=== PATIENT | female | born 1950 | race Caucasian/White ===

== ENCOUNTER 2016-11-12 15:02 | Inpatient (IN) ==
--- NOTE | 2016-11-12 16:25 | PROVIDER DOCUMENTATION ---
HPI-General Adult - General Chief Complaint: Extremity Pain Stated Complaint: BLOOD CLOT/LEFT LEG Time Seen by Provider: 11/12/16 16:17 Source: patient Allergies/Adverse Reactions: Patient Allergies Allergy/AdvReac Type Severity Reaction Status Date / Time No Known Allergies Allergy Verified 11/26/15 00:56 Home Medications: Alprazolam [Xanax] 1 mg PO TID 08/02/12 Albuterol Sulfate [Proventil Hfa] 6.7 gm IH Q4H PRN 04/13/15 Aspirin [Ecotrin] 81 mg PO DAILY 04/13/15 Calcium Carb/Vit D3/Minerals [Cvs Calcium 600+D & Minerals] 1 each PO DAILY Carvedilol [Coreg] 6.25 mg PO BID 04/13/15 Ipratropium/Albuterol Sulfate [Iprat-Albut 0.5-3(2.5) mg/3 ml] 3 ml IH Q4-6H PRN PRN 04/13/15 Lisinopril/Hydrochlorothiazide [Lisinopril-Hctz 10-12.5 mg Tab] 1 each PO DAILY 04/13/15 Methocarbamol [Robaxin] 500 mg PO BID 04/13/15 Oxycodone HCl/Acetaminophen [Percocet 7.5-325 mg Tablet] 1 each PO TID 04/13/15 Prasugrel [Effient] 10 mg PO DAILY 04/13/15 Pravastatin Sodium 20 mg PO DAILY 04/13/15 - History of Present Illness -Gen Adult Nature of Presenting Problems: 65 y/o WF hx CAD, HTn, COPD, anxiety, and chronic pain, c/o LLE pain for one month, found today that she had a blood clot in the left leg. Denies chest pain or sob. Denies hx of clots, currently on Plavix 75 mg for stent placement. On Location of Pain/Injury: reports: lower extremity Pain Radiation: reports: no radiation Quality of Pain: reports: aching Onset/Duration: reports: other (1 month) Timing: reports: still present Review of Systems - Adult - REVIEW OF SYSTEMS - ADULT Constitutional: reports: no symptoms reported. denies: chills, fever, fatique Eyes: reports: no symptoms reported. denies: blurred vision, double vision, eye pain Ears, Nose, Mouth & Throat: reports: no symptoms reported. denies: ear pain, nose pain, throat pain Cardiovascular: reports: no symptoms reported. denies: chest pain, palpitations Respiratory: reports: no symptoms reported. denies: cough, shortness of breath , wheezing Gastrointestinal: reports: no symptoms reported. denies: abdominal pain, diarrhea, nausea, vomiting Genitourinary: reports: no symptoms reported. denies: dysuria, discharge, frequency, incontinence Musculoskeletal: reports: see HPI, joint swelling, muscle aches. denies: joint pain Integumentary: reports: no symptoms reported. denies: rash Neurological: reports: no symptoms reported. denies: headache/migraines Psychiatric: reports: no symptoms reported Endocrine: reports: no symptoms reported Hematologic/Lymphatic: reports: no symptoms reported Allergic/Immunologic: reports: no symptoms reported All Other Systems: Reviewed and Negative Past History - Adult - PAST MEDICAL HISTORY-ADULT Review of Records: reports: Old Records Reviewed, Nursing Assessment Review, Medications Reviewed, Social history reviewed & non-contributory. Major Childhood Illnesses: reports: denies history Cardiovascular: reports: cardiac disease, HTN, other (stents put in) Respiratory: reports: asthma, COPD Gastrointestinal: reports: denies history Obstetrical/Gynecological: reports: denies history Genitourinary: reports: denies history Musculoskeletal: reports: chronic pain, intervertebral disc disease Neurological: reports: denies history Psychiatric: reports: depression Endocrine/Immune: reports: denies history Other Conditions: reports: denies history - PRIOR SURGERIES/PROCEDURES Surgical/Procedure History: reports: - IMMUNIZATION STATUS Childhood Immunizations: See Nurse Assessment Flu Vaccine: See Nurse Assessment - FAMILY HISTORY Family History: reviewed, not pertinent - SOCIAL HISTORY Smoking: less than 1 pack/day Provider spent 3-5 mins advising pt. on dangers of tobacco.: Discussed manners to quit use, and f/u contacts for add'l counseling. Substance Use: none/never Alcohol Use Frequency: never Physical Exam-General - PHYSICAL EXAM-ADULT Initial Vital Signs Reviewed: Yes - CONSTITUTIONAL General Appearance: appears well, alert, no apparent distress - EYES Eyes: PERRL/EOMI, pink conjunctivae - HEAD, EARS, NOSE, MOUTH & THROAT HENMT: normocephalic/atraumatic, moist mucous membranes - NECK Neck: non-tender, full range of motion, supple, normal inspection - RESPIRATORY Respiratory: chest non-tender, lungs clear, normal breath sounds, no pleuratic chest pain, no respiratory distress, no accessory muscle use. negative: respiratory distress, decreased breath sounds, accessory muscle use, crackles, rales, rhonchi, wheezing - CARDIOVASCULAR Cardiovascular: normal peripheral pulses, regular rate, rhythm, no edema - LYMPHATIC Lymphatic: no adenopathy - MUSCULOSKELETAL Extremity: normal range of motion, normal gait, pedal edema, tenderness (left calf tenderness and swelling of the lower extremity.) Peripheral Pulses: dorsalis-pedis (R): 2+, dorsalis-pedis (L): 2+ - SKIN Integumentary: normal color, normal turgor, warm/dry - NEUROLOGIC Neurologic: grossly normal, no motor/sensory deficits - PSYCHIATRIC Psych/Mental Status: normal mood/affect, normal thought content, normal thought process, oriented x 3 Progress - PLAN OF CARE/RESULTS Progress/Plan/Lab Results: Vital Signs Temp Pulse Resp BP Pulse Ox 11/12/16 15:30 97.8 F 70 16 124/80 100 No Known Allergies Allergy (Verified 11/26/15 00:56) Alprazolam [Xanax] 1 mg PO TID 08/02/12 Albuterol Sulfate [Proventil Hfa] 6.7 gm IH Q4H PRN 04/13/15 Aspirin [Ecotrin] 81 mg PO DAILY 04/13/15 Calcium Carb/Vit D3/Minerals [Cvs Calcium 600+D & Minerals] 1 each PO DAILY Carvedilol [Coreg] 6.25 mg PO BID 04/13/15 Ipratropium/Albuterol Sulfate [Iprat-Albut 0.5-3(2.5) mg/3 ml] 3 ml IH Q4-6H PRN PRN 04/13/15 Lisinopril/Hydrochlorothiazide [Lisinopril-Hctz 10-12.5 mg Tab] 1 each PO DAILY 04/13/15 Methocarbamol [Robaxin] 500 mg PO BID 04/13/15 Oxycodone HCl/Acetaminophen [Percocet 7.5-325 mg Tablet] 1 each PO TID 04/13/15 Prasugrel [Effient] 10 mg PO DAILY 04/13/15 Pravastatin Sodium 20 mg PO DAILY 04/13/15 Ibuprofen [Motrin] 800 mg PO Q8H PRN PRN #20 tablet 11/26/15 Omeprazole [Prilosec] 20 mg PO DAILY@0700 #20 capsule 11/26/15 Cyclobenzaprine [Flexeril] 10 mg PO TID PRN #30 tablet 03/20/16 Hydrocodone/Acetaminophen [[place] 5-325 Tablet] 1 each PO Q4-6H PRN PRN #12 tablet 03/20/16 Ibuprofen [Motrin] 600 mg PO Q6-8H PRN PRN #30 tablet 03/20/16 Laboratory 11/12/16 11/12/16 11/12/16 16:25 16:25 16:25 WBC 5.71 RBC 4.28 Hgb 13.4 Hct 40.9 MCV 95.6 MCH 31.3 H MCHC 32.8 L RDW Std Deviation 13.8 Plt Count 346 MPV 10.5 H Immature Gran % (Auto) 0.0 Neut % (Auto) 49.5 Lymph % (Auto) 35.9 [place] % (Auto) 10.9 H Eos % (Auto) 3.3 Baso % (Auto) 0.4 Immature Gran # (Auto) 0.00 Neut # 2.83 Lymph # 2.05 [place] # 0.62 H Eos # 0.19 Baso # 0.02 PT 10.6 INR 1.00 PTT (Actin FS) 25.4 Sodium 138 Potassium 4.1 Chloride 101 Carbon Dioxide 24 L Anion Gap 13 BUN 18 Creatinine 1.1 H Estimated GFR/1.73 m2 50 BUN/Creatinine Ratio 16 Glucose 98 Calculated Osmolality 278 Calcium 9.3 Total Bilirubin 0.20 AST 17 ALT 10 Alkaline Phosphatase 57 Total Protein 6.9 Albumin 4.0 Globulin 2.9 Albumin/Globulin Ratio 1.4 Orders Category Date Time Status CBC WITH ELECTRONIC DIFF [HEME] Stat Lab 11/12/16 16:25 Completed COMPREHENSIVE METABOLIC PANEL [CHEM] Stat Lab 11/12/16 16:25 Completed PT [PROTIME WITH INR] [COAG] Stat Lab 11/12/16 16:25 Completed PTT [COAG] Stat Lab 11/12/16 16:25 Completed - ULTRASOUND (By Radiology) 1 US Study: Lower Ext (left) Impression: Abnormal (DVT 5-8 cm from the left dalton to the ankle, with occlusion. Well visulaized DVt from superficial femoral into posterior tibial vein. Likely subacute in nature per Vascular) - CONSULTS/PCP/HOSPITALIST Notification #1 *Consult/PCP/Hospitalist*: Dr. Carter, PCP, motion study technician for Dr. Faustin Time Discussed: 18:09 Reason/Comments: DVT Consult Disposition: Admit Departure - Departure Time of Disposition Order: 16:32 DIAGNOSIS: DVT (deep venous thrombosis) Qualifiers: DVT location: lower extremity Affected thrombotic vein of extremity: unspecified lower extremity proximal vein Laterality: left Chronicity: unspecified Qualified Code(s): I82.4Y2 - Acute embolism and thrombosis of unspecified deep veins of left proximal lower extremity Disposition: ADMITTED INPATIENT 09 Certified Medical Emergency: Emergent Condition: Stable Referrals: Alexis Faustin MD [Primary Care Provider] - Attestation - Physician/ Mid-level Attestation Patient care was provided by Mid-level provider (PRACTICE DIRECTOR/PA):: Yes Mid-level provider:: Geetha Vasquez Mid-level documentation review:: The Mid-level provider documentation, treatment plan and medical decision making was reviewed by the physician who agrees with all treatment and medical decision making by the MLP.
[2016-11-12 16:38] LABS: MANUAL DIFF NEEDED? NO
[2016-11-12 16:45] LABS: BASO% 0.4 % (0.0-0.8); EOS# 0.19 X1000 (0.0-0.7); EOS% 3.3 % (0.0-10.0); HEMATOCRIT 40.9 % (37.0-47.0); HEMOGLOBIN 13.4 g/dL (12.0-16.0); LYMPH# 2.05 X1000 (1.2-3.4); LYMPH% 35.9 % (20.5-51.1); MCH 31.3 PG (27-31); MCHC 32.8 g/dL (33-37); MCV 95.6 FL (81-99); MONO# 0.62 X1000 (0.11-0.59); MONO% 10.9 % (1.7-9.3); MPV 10.5 FL (7.4-10.4); NEUT% 49.5 % (42.2-75.2); PLT 346 X1000 (130-400); RBC 4.28 XMIL (4.2-5.4)
[2016-11-12 16:52] LABS: PROTIME 10.6 Seconds (9.2-11.7); PTT 25.4 Seconds (22.0-36.0)
[2016-11-12 17:09] LABS: CALCIUM 9.3 mg/dL (8.8-10.2); POTASSIUM 4.1 mmol/L (3.5-5.1); TOTAL BILIRUBIN 0.2 mg/dL (0.20-1.00); TOTAL PROTEIN 6.9 g/dL (6.3-8.3)
[2016-11-12] MEDS ORDERED: TYLENOL PO PRN (18:31)
[2016-11-12] MEDS ORDERED: ZOFRAN IV PRN (18:31)
--- NOTE | 2016-11-12 19:19 | HISTORY AND PHYSICAL ---
CHIEF COMPLAINT: Left leg swelling. HISTORY OF PRESENT ILLNESS: The patient is a 65-year-old white female of Dr. Denis who presents to the emergency room with complaints of left leg swelling for about 1 month. She has had some dyspnea on exertion, but she says that has not been particularly different than what she has had over the past 2 years. She has been seeing Dr. 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 The patient states that Dr. Ball had called in a prescription for her to take, but she had not picked it up yet from her pharmacy. That may be Ranexa or Imdur I suppose. The patient denies any recent chest pains that are unusual to her. Dr. Ball had ordered a venous Doppler of her left leg earlier today around 1 p.m. and that did show an extensive DVT of the left lower extremity, and I was called to admit the patient. MEDICATIONS PRIOR TO ADMISSION: Aspirin 81 mg p.o. daily, Coreg 6.25 mg p.o. b.i.d., Klonopin 1 mg p.o. b.i.d., Plavix 75 mg p.o. daily, Zestoretic 10/12.5 mg 1 p.o. daily, Singulair 10 mg p.o. daily, Flonase 2 sprays to each nostril once daily, [place] 10 one p.o. t.i.d., DuoNeb treatments every 4 hours via nebulizer. ALLERGIES: NKDA. PAST MEDICAL HISTORY: 1. Hypertension. 2. Fibromyalgia. 3. Chronic pain syndrome. 4. Coronary artery disease with history of [place] in 2013 with stent placement. 5. Ischemic cardiomyopathy. 6. Persistent tobacco abuse. 7. History of renal failure 2 years ago with improvement markedly since that time. 8. Paroxysmal atrial fibrillation. 9. COPD. PAST SURGICAL HISTORY: section. FAMILY HISTORY: Noncontributory. SOCIAL HISTORY: The patient smokes about 1/2 pack of cigarettes a day and says she has been smoking for 50 years. The patient denies alcohol use. [place] in the local area. REVIEW OF SYSTEMS: Negative except as above. PHYSICAL EXAMINATION: VITAL SIGNS: Temperature 97.8 degrees, pulse 70, respirations 16, blood pressure 124/80, and O2 saturation on room air 100%. Weight 180 pounds and she is 5 feet tall. GENERAL: A moderately obese white female, in no acute distress. SKIN: Warm and dry. No rashes. HEENT: NC/AT. NEELIMA. EOMI. Sclerae fairly clear. Pupils are dilated moderately. OP no redness. Tongue in the midline. NECK: No LA, TMG, JVD, or bruits. CARDIOVASCULAR: RRR without definite murmur. LUNGS: Fairly clear to auscultation. Distant breath sounds. BACK: Nontender. ABDOMEN: Protuberant, soft. No mass or organomegaly. BREASTS: Deferred. PELVIC: Deferred. RECTAL: Deferred. EXTREMITIES: Right lower extremity with some non-ropey varicosities in her legs, but marked discrepancy in the size of her circumference of her legs, left being much larger than the right. Negative Homans testing on the left and right. NEUROLOGIC: Cranial nerves 2 through 12 are intact. Nonfocal. LABORATORY DATA: Shows white count 5.7, hemoglobin 13.4, hematocrit 41, MCV 95.6, platelets 346,000, neutrophils 50, lymphocytes 35.9. PT 10.6, INR 1, PTT 25.4. Sodium 138, potassium 4.1, chloride 101, CO2 of 24, BUN 18, and creatinine 1.1, which is her baseline. Glucose 98, calcium 9.3. Total bilirubin 0.2, AST 17, ALT 10, alkaline phosphatase 57, total protein 6.9, albumin 4. Chest x-ray not yet done. Venous Doppler of left lower extremity reveals extensive left lower extremity DVT. ASSESSMENT: 1. Left lower extremity deep vein thrombosis. 2. Dyspnea. 3. Ischemic cardiomyopathy. 4. Coronary artery disease. 5. History of myocardial infarction in 2013. 6. Paroxysmal atrial fibrillation. 7. Chronic obstructive pulmonary disease. 8. Hypertension. 9. History of hyperlipidemia, off medication presently. 10. Fibromyalgia. 11. Chronic pain syndrome. 12. History of mild chronic renal insufficiency with worsened renal dysfunction back in 2013. 13. Persistent tobacco abuse. PLAN: The plan at this time is to admit the patient to a telemetry bed and place her on strict bed rest. Give her Lovenox 1 mg/kg subcutaneous every 12 hours. Continue aspirin at 81 mg daily, holding her Plavix. Continue her other home medications. We will check chest x-ray. We will ask Dr. Ball to see the patient in the morning for evaluation, as he has been following her recently. We will place her on a healthy heart diet and monitor on the telemetry with oxygen if required.
[2016-11-12] MEDS: DUONEB (A & A) INH SCH ×2 (19:30→22:55)
[2016-11-12] MEDS ORDERED: NORCO-10 PO SCH (21:00)
[2016-11-12] MEDS: COREG PO SCH (22:41)
[2016-11-12] MEDS: LOVENOX SUBQ SCH (22:41)
[2016-11-12] MEDS: KLONOPIN PO SCH (22:41)
--- NOTE | 2016-11-12 22:45 | Diag Imaging Result Document ---
PROCEDURE NAME: CHEST-2 VIEWS - 11/12/2016 FRONTAL AND LATERAL CHEST, TWO VIEWS: COMPARISON: 04/13/2015. FINDINGS: The lungs are well expanded. The heart is borderline mildly prominent although this is an AP exam. The vessels are not distended. No pleural effusions. Increased density in the right base. IMPRESSION: I believe there is a right basilar infiltrate. Follow up films recommended.
[2016-11-13] MEDS: NORCO-10 PO SCH ×4 (03:11→20:54)
[2016-11-13] MEDS: DUONEB (A & A) INH SCH ×6 (03:53→23:34)
--- NOTE | 2016-11-13 08:06 | Diag Imaging Result Document ---
PROCEDURE NAME: LUNG SCAN / VQ - 11/13/2016 NUCLEAR MEDICINE VENTILATION-PERFUSION EXAM: TECHNIQUE: 30.9 mCi of DTPA were administered for the ventilation images. 5.3 mCi of MAA were administered for the perfusion images. COMPARISON: The study is compared to the chest x-ray from 11/12/2016. FINDINGS: There are scattered matching defects in the left lung. No associated abnormality on the plain film. Single matching defect in the right lung. No ventilation-perfusion mismatches. IMPRESSION: Intermediate probability for pulmonary emboli.
[2016-11-13] MEDS: FLONASE NAS SCH (08:40)
[2016-11-13] MEDS: ASPIRIN EC PO SCH (08:41)
[2016-11-13] MEDS: CALTRATE 600 + D PO SCH (08:41)
[2016-11-13] MEDS: PRINZIDE 10/12.5MG PO SCH (08:42)
[2016-11-13] MEDS: SINGULAIR PO SCH (08:42)
[2016-11-13] MEDS: COREG PO SCH ×2 (08:42→20:53)
[2016-11-13] MEDS: KLONOPIN PO SCH ×2 (08:42→20:53)
[2016-11-13] MEDS: LOVENOX SUBQ SCH (10:50)
--- NOTE | 2016-11-13 12:21 | CONSULTATION ---
DATE OF CONSULTATION: 11/13/2016 INDICATION FOR THE CONSULTATION: DVT. HISTORY OF PRESENT ILLNESS: Ms. Olivas is a 65-year-old white female who follows with Dr. Ball. She was referred to outpatient imaging yesterday for leg swelling yesterday by Dr. Ball, and had a DVT diagnosed in the left lower extremity. She was then referred to the ER and admitted. She has noted intermittent swelling in that area for several days. No episodes of shortness of breath nor does she have any episodes of chest pain. She reports some medication adjustments by Dr. Ball in the office, and it sounds like she may have been initiated on nitrate, but she has not started that medication yet. No recent stents. Last cardiac catheterization was in 2013. She continues on aspirin and Plavix with no fall history and no bleeding issues. PAST MEDICAL HISTORY: 1. Hypertension. 2. Fibromyalgia. 3. Coronary artery disease with history of stenting in 2013 to the left anterior descending. 4. History of ischemic cardiomyopathy. 5. Continued tobacco abuse. 6. Paroxysmal atrial fibrillation. 7. COPD. SOCIAL HISTORY: The patient smokes around half pack per day and has been smoking for more than 50 years. No alcohol use. She lives in the [facility]. REVIEW OF SYSTEMS: A 10 system review of systems is negative except for those mentioned in HPI. PHYSICAL EXAMINATION: Vital Signs: She is afebrile. Her heart rates are in the 60s to 70s. Her blood pressure most recently was 131/89. General: She is in no acute distress. HEENT: Oropharynx is moist. Poor dentition. Eye examination is pink conjunctivae, white sclerae. Neck: Examination shows no obvious thyromegaly or thyroid tenderness. Cardiovascular: She sounds to be in a regular rate and rhythm. She has no obvious murmurs. She has no S3. She has minimal left lower extremity edema, none on the right. Warm and well perfused lower extremities. Chest: Exam is clear bilaterally. She has no increased work of breathing. Abdomen: Soft, nontender, nondistended. She has no obvious organomegaly. Skin Exam: Warm and dry throughout. There are not any rashes. Neurological: She is moving all extremities well. Cranial nerves 2-12 intact without sensation deficits. Psychiatric: Alert and oriented, pleasant. She has normal mood and affect. PERTINENT DATA: V/Q scan yesterday showed intermediate probability for pulmonary emboli, showing scattered matched defects in the left lung with single matching defect in the right lung. Stress test performed October 29 shows moderate size mild intensity, reversible defect located in the inferior apical, mid inferior, and basal inferior segments. Reversibility would suggest ischemia. EF was 79% on that study. Wall motion appeared to be intact. White count was 5.7, hematocrit is 40.9, platelet count is 346. INR is 1.0. Sodium is 138, potassium 4.1, BUN is 18, creatinine is 1.1. Her albumin level was 4. TSH on the was 1.3. ASSESSMENT: 1. Paroxysmal atrial fibrillation. 2. Deep vein thrombosis with intermediate probability V/Q for pulmonary embolism. 3. History of coronary disease. PLAN: Patient has already been discontinued off the Plavix which I agree with. I will discontinue the Lovenox and place her on Eliquis 10 mg b.i.d. This dose should be continued for 7 days followed by 5 mg b.i.d. indefinitely considering her history of DVT, as well as atrial fibrillation. The risks, benefits and alternatives to anticoagulation have been explained to the patient, including the risk or bleeding. She agrees to proceed. Her renal function appears relatively normal. I will order a limited echo to evaluate her right heart structures considering her intermediate probability for PE. In addition, I will order an EKG.
--- NOTE | 2016-11-13 15:08 | EKG Report ---
Test Performed on : 11/13/2016 1:42:40 PM Test Reason : DVT possible PE, afib Blood Pressure : / mmHG Vent. Rate : 064 BPM Atrial Rate : 064 BPM P-R Int : 130 ms QRS Dur : 086 ms QT Int : 424 ms P-R-T Axes : 036 051 042 degrees QTc Int : 437 ms Normal sinus rhythm. Normal ECG When compared with ECG of 13-APR-2015 15:02, premature atrial complexes. are no longer present Vent. rate has decreased BY 42 BPM Nonspecific T wave abnormality no longer evident in Inferior leads Nonspecific T wave abnormality no longer evident in Lateral leads Confirmed by Martin Schwarz MD ([id number]) on 11/17/2016 8:34:17 AM
--- NOTE | 2016-11-13 16:39 | ECHO REPORT ---
ORDER DATE: 11/13/2016 2D, M-MODE, COLOR DOPPLER EXAM: This is a technically satisfactory study. INTERPRETATION: 1. The left ventricle is normal in size without hypertrophy and with preserved overall systolic function. Estimated left ventricular ejection fraction is between 65% and 70%. 2. The left and right atria are normal in size. Right ventricular size and function are preserved. 3. There is no pericardial effusion. 4. The aortic valve is trileaflet. There is no evidence for aortic stenosis or aortic insufficiency. 5. The mitral valve is intact. The tricuspid valve is intact. 6. There does not appear to be significant mitral regurgitation. 7. The peak pulmonary artery pressure was not estimated in this study.
[2016-11-13] MEDS: NICODERM PATCH TD SCH (17:55)
[2016-11-13] MEDS: ELIQUIS PO SCH (20:53)
[2016-11-14] MEDS: DUONEB (A & A) INH SCH ×6 (03:52→22:44)
[2016-11-14] MEDS: FLONASE NAS SCH (08:53)
[2016-11-14] MEDS: NORCO-10 PO SCH ×3 (08:53→21:41)
[2016-11-14] MEDS: ELIQUIS PO SCH ×2 (08:54→21:41)
[2016-11-14] MEDS: ASPIRIN EC PO SCH (08:55)
[2016-11-14] MEDS: KLONOPIN PO SCH ×2 (08:56→21:40)
[2016-11-14] MEDS: COREG PO SCH ×2 (08:56→21:40)
[2016-11-14] MEDS: NICODERM PATCH TD SCH (08:56)
[2016-11-14] MEDS: PRINZIDE 10/12.5MG PO SCH (08:56)
[2016-11-14] MEDS: CALTRATE 600 + D PO SCH (08:56)
[2016-11-14] MEDS: SINGULAIR PO SCH (08:56)
--- NOTE | 2016-11-14 08:59 | PROGRESS NOTE ---
DATE: 11/14/2016 SUBJECTIVE: A 65-year-old, white female patient, admitted with DVT involving left lower limb. The patient also had intermediate probability of pulmonary embolism. The patient is doing better. She had chronic leg pain. No unusual shortness of breath. She denied any bleeding. No typical chest pain. Occasional palpitation. No nausea or vomiting. She denied any diarrhea. Admission history and physical and Cardiology consult reviewed. Past medical history is significant for chronic pain, hypertension, fibromyalgia, coronary artery disease, paroxysmal atrial fibrillation, COPD, ischemic cardiomyopathy. OBJECTIVE: Her vital signs noted. Neck supple. No JVD. Lungs: Bibasilar crepitation. Heart: S1 and S2 heard. Abdomen soft, globular. Bowel sounds present. Extremities: No cyanosis, clubbing. Crepitation in both knee joints. PROFESSOR OF LITERATURE: Alert, awake, able to move all 4 limbs. Admission laboratory data noted. CONSIDERATION: Deep venous thrombosis involving the left leg. The patient is on Eliquis for paroxysmal atrial fibrillation, hypertension, osteoarthritis. PLAN: I am going to repeat blood work tomorrow and give her p.r.n. oxygen. Close observation. Fall precaution. Overall plan discussed with the patient. She is in agreement.
--- NOTE | 2016-11-14 14:55 | PROGRESS NOTE ---
DATE: 11/14/2016 SUBJECTIVE: The patient remains stable. She still has some complaint of pain within the lower extremities. OBJECTIVE: Heart rate is 60s, blood pressure is 116-130s/50s-69. Patient is afebrile. On exam, this is a well-developed female who is comfortable. HEENT exam is benign. Neck is supple. Chest is clear. Cardiovascular reveals regular rate and rhythm. Abdomen: Positive bowel sounds. Nontender, nondistended. Extremities: There is no edema. IMPRESSION: 1. Deep venous thrombosis. The patient is currently on appropriate dosage anticoagulant therapy. 2. Paroxysmal atrial fibrillation. This remains stable. 3. History of coronary artery disease with previous stenting to the LAD.
[2016-11-15] MEDS: DUONEB (A & A) INH SCH ×6 (03:28→23:30)
[2016-11-15 04:57] LABS: ALLEN TEST YES; BE 0.4 mmoll (-3.0-3.0); BLOOD TYPE ARTERIAL; DRAW SITE R RADIAL; METHB 0.9 % (0.0-1.5); O2(CT) 15.5 mL/dL (15.0-23.0); PCO2(98.6) 45 mmHg (35-45); PO2(98.6) 59 mmHg (60-100); SAMPLE BLOOD; SAO2 91.7 % (95.0-100.0); THB 12.3 g/dL (11.5-17.4); pH(98.6) 7.37 (7.35-7.45)
[2016-11-15 05:15] LABS: MODALITY ROOM AIR
[2016-11-15 06:23] LABS: MANUAL DIFF NEEDED? NO
[2016-11-15 06:34] LABS: BASO% 0.8 % (0.0-0.8); EOS% 6.7 % (0.0-10.0); HEMATOCRIT 38.2 % (37.0-47.0); HEMOGLOBIN 12.8 g/dL (12.0-16.0); LYMPH# 2.75 X1000 (1.2-3.4); LYMPH% 36.9 % (20.5-51.1); MCH 32.2 PG (27-31); MCHC 33.5 g/dL (33-37); MONO# 1.02 X1000 (0.11-0.59); MONO% 13.7 % (1.7-9.3); MPV 10.8 FL (7.4-10.4); NEUT% 41.9 % (42.2-75.2); PLT 312 X1000 (130-400); RBC 3.98 XMIL (4.2-5.4)
[2016-11-15 07:00] LABS: ALBUMIN 3.6 g/dL (3.5-5.0); CALCIUM 9.3 mg/dL (8.8-10.2); MAGNESIUM 1.8 mg/dL (1.5-2.7); POTASSIUM 4.5 mmol/L (3.5-5.1); TOTAL BILIRUBIN 0.16 mg/dL (0.20-1.00); TOTAL PROTEIN 6.3 g/dL (6.3-8.3)
[2016-11-15 07:33] LABS: HEMOGLOBIN A1C 5.5 % (4.8-6.0)
[2016-11-15] MEDS: FLONASE NAS SCH (08:26)
[2016-11-15] MEDS: PRINZIDE 10/12.5MG PO SCH (08:26)
[2016-11-15] MEDS: NORCO-10 PO SCH ×3 (08:27→21:45)
[2016-11-15] MEDS: SINGULAIR PO SCH (08:27)
[2016-11-15] MEDS: ELIQUIS PO SCH ×2 (08:27→21:45)
[2016-11-15] MEDS: CALTRATE 600 + D PO SCH (08:27)
[2016-11-15] MEDS: NICODERM PATCH TD SCH (08:27)
[2016-11-15] MEDS: ASPIRIN EC PO SCH (08:27)
[2016-11-15] MEDS: KLONOPIN PO SCH ×2 (08:28→21:45)
[2016-11-15] MEDS: COREG PO SCH ×2 (08:28→21:46)
--- NOTE | 2016-11-15 09:04 | PROGRESS NOTE ---
DATE: 11/15/2016 SUBJECTIVE: Ms. Olivas is doing fair. The patient does have cough, chest congestion, mild shortness of breath, some wheezing. No high-grade fever or chills. The patient does have history suggestive of DVT. No nausea or vomiting. No dysuria or hematuria. OBJECTIVE: Vital Signs: Reviewed. Neck: Supple. No JVD. Lungs: Bilateral good air entry present. Bilateral basal crepitation. Bilateral expiratory wheezing. Cardiovascular: S1 and S2 heard. Abdomen: Soft. No distention. Bowel sounds present. Extremities: No cyanosis, clubbing. 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 Lab Data: Done today, hemoglobin 12.8, hematocrit 38.2, platelet count 312,000, WBCs 7.46. Blood gas did reveal PO2 of 59, pH 7.37, PCO2 45. PLAN: I am going to start the patient on oxygen. Add bronchodilator treatment. Chest x-ray. Continue rest of the treatment. Close observation. After reviewing chest x-ray, we will make necessary recommendations. PROBLEM LIST: 1. Deep venous thrombosis. 2. Atrial fibrillation. 3. Hypertension. 4. Coronary artery disease. 5. Bronchospasm.
--- NOTE | 2016-11-15 12:28 | Diag Imaging Result Document ---
PROCEDURE NAME: CHEST-PORTABLE - 11/15/2016 AP PORTABLE CHEST AT 0855 HOURS: FINDINGS: There is an ovoid opacity present in the area of the right middle lobe or minor fissure which may be loculated fluid. This was also evident on 11/12/2016. The lungs are actually slightly better expanded than on the previous study. IMPRESSION: Apparent loculated fluid in the minor fissure. Otherwise, stable chest.
[2016-11-16] MEDS: DUONEB (A & A) INH SCH ×6 (02:52→23:35)
[2016-11-16] MEDS: FLONASE NAS SCH (08:00)
[2016-11-16] MEDS: KLONOPIN PO SCH ×2 (08:05→21:02)
[2016-11-16] MEDS: NICODERM PATCH TD SCH (08:05)
[2016-11-16] MEDS: SINGULAIR PO SCH (08:05)
[2016-11-16] MEDS: NORCO-10 PO SCH ×3 (08:05→21:02)
[2016-11-16] MEDS: PRINZIDE 10/12.5MG PO SCH (08:06)
[2016-11-16] MEDS: COREG PO SCH ×2 (08:06→21:02)
[2016-11-16] MEDS: ASPIRIN EC PO SCH (08:06)
[2016-11-16] MEDS: CALTRATE 600 + D PO SCH (08:06)
[2016-11-16] MEDS: ELIQUIS PO SCH ×2 (08:06→21:02)
[2016-11-17] MEDS: DUONEB (A & A) INH SCH ×6 (03:22→23:43)
--- NOTE | 2016-11-17 07:42 | PROGRESS NOTE ---
DATE: 11/16/2016 SUBJECTIVE: Ms. Olivas has left lower extremity DVT. She is on Eliquis 10 mg twice a day. Her general condition is unchanged. ABGs are normal. Chest x-ray revealed some fluid in the minor fissure. Otherwise it was negative. I will continue the Eliquis at the present time. -5
[2016-11-17] MEDS: NORCO-10 PO SCH (08:17)
[2016-11-17] MEDS: FLONASE NAS SCH (08:18)
[2016-11-17] MEDS: CALTRATE 600 + D PO SCH (08:18)
[2016-11-17] MEDS: COREG PO SCH ×2 (08:18→21:06)
[2016-11-17] MEDS: NICODERM PATCH TD SCH (08:18)
[2016-11-17] MEDS: SINGULAIR PO SCH (08:18)
[2016-11-17] MEDS: PRINZIDE 10/12.5MG PO SCH ×2 (08:18→08:19)
[2016-11-17] MEDS: ASPIRIN EC PO SCH (08:18)
[2016-11-17] MEDS: ELIQUIS PO SCH ×2 (08:18→21:06)
[2016-11-17] MEDS: KLONOPIN PO SCH ×2 (08:28→21:06)
--- NOTE | 2016-11-17 09:04 | PROGRESS NOTE ---
DATE: 11/17/2016 Ms. Olivas had an episode of PAD last night. She complains of pain in both legs. She had some loculated fluid in the minor fissure on the right side. We will increase her pain medication as she is in a lot of pain this morning.
[2016-11-17] MEDS: NORCO-10 PO PRN ×2 (12:35→18:36)
[2016-11-18] MEDS: NORCO-10 PO PRN ×4 (02:17→20:25)
[2016-11-18] MEDS: DUONEB (A & A) INH SCH ×5 (03:52→23:25)
[2016-11-18] MEDS: SINGULAIR PO SCH (08:07)
[2016-11-18] MEDS: ELIQUIS PO SCH ×2 (08:07→20:20)
[2016-11-18] MEDS: ASPIRIN EC PO SCH (08:08)
[2016-11-18] MEDS: CALTRATE 600 + D PO SCH (08:08)
[2016-11-18] MEDS: KLONOPIN PO SCH ×2 (08:16→20:20)
[2016-11-18] MEDS: FLONASE NAS SCH (08:17)
[2016-11-18 08:21] LABS: CALCIUM 9.2 mg/dL (8.8-10.2); POTASSIUM 4.5 mmol/L (3.5-5.1)
[2016-11-18] MEDS: NICODERM PATCH TD SCH (08:27)
--- NOTE | 2016-11-18 09:44 | PROGRESS NOTE ---
DATE: 11/18/2016 Ms. Olivas is doing better. She had a left leg DVT. I am trying to get PTE ruled out with CTA. Her electrolytes are stable. Repeat BUN is 27, creatinine is 1.0. I personally feel like she should be okay to get the test done. -6
[2016-11-18] MEDS: PRINZIDE 10/12.5MG PO SCH (10:47)
[2016-11-18] MEDS: COREG PO SCH ×2 (10:47→20:20)
--- NOTE | 2016-11-18 10:57 | Diag Imaging Result Document ---
PROCEDURE NAME: ANGIOGRAM/PULMONARY ARTERIES - 11/18/2016 CT PULMONARY ANGIOGRAM WITH INTRAVENOUS CONTRAST: COMPARISON: Chest x-ray 11/15/2016. FINDINGS: Axial CT images of the chest were obtained after administering intravenous contrast. Coronal MIP images were generated. There are several relatively small scattered acute pulmonary emboli bilaterally, most notably in the lower lobe pulmonary arteries and some segmental arteries in the lower lobes. There is rather advanced calcified coronary artery disease. Heart size is normal with no pericardial effusion. There is some scattered linear atelectasis in the lung bases. Upper abdominal images are unremarkable. Bony structures are intact. IMPRESSION: 1. Acute bilateral multifocal pulmonary emboli. 2. Scattered linear atelectasis in the lung bases. 3. The critical result was immediately called to the patient's nurse on .
[2016-11-19] MEDS: NORCO-10 PO PRN ×4 (03:42→21:31)
[2016-11-19] MEDS: DUONEB (A & A) INH SCH ×6 (04:04→22:46)
[2016-11-19] MEDS: CALTRATE 600 + D PO SCH (09:11)
[2016-11-19] MEDS: ASPIRIN EC PO SCH (09:11)
[2016-11-19] MEDS: PRINZIDE 10/12.5MG PO SCH (09:11)
[2016-11-19] MEDS: SINGULAIR PO SCH (09:11)
[2016-11-19] MEDS: COREG PO SCH ×2 (09:11→21:31)
[2016-11-19] MEDS: NICODERM PATCH TD SCH (09:16)
[2016-11-19] MEDS: ELIQUIS PO SCH ×2 (09:16→21:30)
[2016-11-19] MEDS: KLONOPIN PO SCH ×2 (09:19→21:30)
--- NOTE | 2016-11-19 09:32 | PROGRESS NOTE ---
DATE: 11/19/2016 Ms. Olivas is in [address] A. She is doing better. She is still short of breath. CT angiogram revealed presence of extensive pulmonary embolism. She understands that she will have to take the Eliquis. She actually wants to get back on Coumadin but she is afraid of it. She says she probably cannot afford Eliquis. However, she will try. -0
[2016-11-19] MEDS: FLONASE NAS SCH ×2 (10:01→18:54)
[2016-11-20] MEDS: NORCO-10 PO PRN (04:24)
[2016-11-20 07:32] VITALS: BP 102/38
[2016-11-20] MEDS: DUONEB (A & A) INH SCH (08:05)
[2016-11-20] MEDS: CALTRATE 600 + D PO SCH (08:18)
[2016-11-20] MEDS: ELIQUIS PO SCH (08:18)
[2016-11-20] MEDS: COREG PO SCH ×2 (08:19→08:26)
[2016-11-20] MEDS: PRINZIDE 10/12.5MG PO SCH ×2 (08:19→08:26)
[2016-11-20] MEDS: ASPIRIN EC PO SCH (08:19)
[2016-11-20] MEDS: SINGULAIR PO SCH (08:19)
[2016-11-20] MEDS: NICODERM PATCH TD SCH (08:20)
[2016-11-20] MEDS: KLONOPIN PO SCH (08:42)
--- NOTE | 2016-11-20 09:43 | PROGRESS NOTE ---
DATE: 11/20/2016 Ms. Olivas is doing better. She has bilateral pulmonary emboli and DVT in the left leg. She has atrial fibrillation. She will be taking Imdur as well as Eliquis 5 mg b.i.d. -1
--- NOTE | 2016-11-20 11:47 | HISTORY AND PHYSICAL ---
HOSPITAL COURSE: Ms. Olivas was admitted with the diagnosis of deep vein thrombosis involving the left leg. She was placed on Eliquis. She had severe dyspnea. We did a V/Q lung scan which revealed some moderate probability of pulmonary emboli. Once her creatinine came down to 1, we did a pulmonary arteriogram which revealed presence of bilateral pulmonary emboli, scattered linear atelectasis. Her CBC was unremarkable. INR was 1.08. ABGs revealed pH 7.37, pCO2 of 45, PO2 of 59. Chemistry: Electrolytes are normal. BUN 27, creatinine 1.0. She was on apixaban or Eliquis 10 mg b.i.d. for a few does and then 5 mg b.i.d., which she will take. She will continue her other medications.
[2016-11-21] MEDS ORDERED: ELIQUIS PO SCH (09:00)
--- NOTE | 2016-11-26 08:58 | DISCHARGE SUMMARY ---
ADMISSION DATE: 11/12/2016 DISCHARGE DATE: 11/20/2016 HISTORY OF PRESENT ILLNESS: Ms. Olivas, who is a 65-year-old white female, was admitted with swelling of the left leg. She had severe pain in the left leg as well as back pain. LABORATORY DATA IN THE HOSPITAL: CBC was unremarkable. INR was 1.08. Arterial blood gases revealed a pH of 7.37, pCO2 was 45, pO2 was 59. HOSPITAL COURSE: She had some chest discomfort. Initially V/Q lung scan was one, and V/Q lung scan showed some moderate probability of pulmonary emboli. Her BUN and creatinine were somewhat elevated. However, when the creatinine came down to 1.0, we decided to do the CT of the chest with angiogram, and angiogram was suggestive of bilateral pulmonary emboli, scattered linear atelectasis. During the course, she was initially treated with Eliquis. She was kept on the floor and monitored. She continued to improve, and we started her on apixaban or Eliquis 10 mg b.i.d. initially, and discharged her with a prescription of Eliquis 5 mg b.i.d. We gave her a 10 mg dose for a few days while she was in the hospital. She is going to continue her other medications. FINAL DIAGNOSES: 1. Deep vein thrombosis in the left leg. Elastic stockings given for that. 2. Bilateral pulmonary emboli. 3. Coronary artery disease. 4. 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 FOLLOWUP: She will be followed by me in the office in about 7 days.
== END 2016-11-20 10:56 | disposition home or self-care (01) | DRG 299 ==
LOC: ED 15:02 → 4N 20:54
PROVIDERS: ADMIT Internal Medicine; ATTEND Internal Medicine
DX: I82.402 Acute embolism and thrombosis of unspecified deep veins of left lower extremity (principal); I26.99 Other pulmonary embolism without acute cor pulmonale; J44.9 Chronic obstructive pulmonary disease, unspecified; I48.0 Paroxysmal atrial fibrillation; I10 Essential (primary) hypertension; I25.10 Atherosclerotic heart disease of native coronary artery without angina pectoris; F41.9 Anxiety disorder, unspecified; J45.909 Unspecified asthma, uncomplicated; F32.9 Major depressive disorder, single episode, unspecified; F17.210 Nicotine dependence, cigarettes, uncomplicated; M79.7 Fibromyalgia; M19.90 Unspecified osteoarthritis, unspecified site; I25.5 Ischemic cardiomyopathy; Z79.899 Other long term (current) drug therapy; Z79.82 Long term (current) use of aspirin; Z79.02 Long term (current) use of antithrombotics/antiplatelets; Z79.891 Long term (current) use of opiate analgesic; Z95.5 Presence of coronary angioplasty implant and graft; Z71.6 Tobacco abuse counseling; I25.2 Old myocardial infarction; M47.816 Spondylosis without myelopathy or radiculopathy, lumbar region
CPT/HCPCS: 36415; 71010; 71020; 71275; 78582; 80048; 80053; 82805; 83036; 83735; 84443; 85025; 85610; 85730; 93005; 93010; 93308; 93971; 94640; 94761; 99285; A9539; A9540; J1650; Q9967

== ENCOUNTER 2017-04-20 09:56 | Inpatient (IN) ==
[2017-04-20] MEDS ORDERED: NS 2,000 ML ONE (10:32)
--- NOTE | 2017-04-20 10:40 | Diag Imaging Result Doc PS360 ---
EXAM: HEAD W/O CONTRAST INDICATION: STROKE LIKE COMPARISON: None. FINDINGS: There is no definite acute infarct given the limited sensitivity of CT versus MRI. There is no discrete intracranial mass, mass effect, or intracranial hemorrhage. The surrounding soft tissues and bony structures are essentially unremarkable. IMPRESSION: No evidence of acute intracranial pathology. Electronically signed by Fadi Abbasi 04/20/2017 10:38 AM
[2017-04-20 10:46] LABS: ALLEN TEST YES; BE -11.8 mmoll (-3.0-3.0); BLOOD TYPE ARTERIAL; DRAW SITE R RADIAL; METHB 0.9 % (0.0-1.5); PCO2(98.6) 30 mmHg (35-45); PO2(98.6) 116 mmHg (60-100); SAMPLE BLOOD; SAO2 97.8 % (95.0-100.0); THB 12.4 g/dL (11.5-17.4); pH(98.6) 7.27 (7.35-7.45)
[2017-04-20 10:47] LABS: MODALITY CANNULA
[2017-04-20] MEDS ORDERED: DUONEB (A & A) INH ONE (10:48)
[2017-04-20 10:54] LABS: MANUAL DIFF NEEDED? NO
--- NOTE | 2017-04-20 10:55 | Diag Imaging Result Doc PS360 ---
EXAM: CHEST-PORTABLE - 04/20/2017 HISTORY: AMS TECHNIQUE: Portable AP supine chest 1050 COMPARISON: 03/24/2017 FINDINGS: Heart size appears the upper range of normal. There is a small calcified granuloma from old granulomatous disease of the medial right apex which is stable. The lungs otherwise appear clear. There is no pleural effusion or pneumothorax seen. IMPRESSION: No evidence of acute disease. Electronically signed by Duglas Mclain 04/20/2017 10:53 AM
[2017-04-20] MEDS ORDERED: NS 1,000 ML IV ONE ×2 (10:57→11:14)
--- NOTE | 2017-04-20 11:08 | ED EKG INTERP ---
This chart was entered by Gena Hernandez Scribe, acting as scribe for Michael Aquino MD. EKG Interpretation - EKG Time of EKG reading by physician:: 10:01 EKG Read and Signed by:: Michael Aquino EKG Interpretation (*Must complete 3 of following elements*): Normal Rate: 69 Rhythm: NSR [place]: normal QRS: normal [place] Interval: normal ST Wave: normal This chart was documented by the indicated scribe, (Gena Hernandez Scribe) and accurately reflects the services I performed and decisions made by me, Michael Aquino MD, as attested by the provider's signature.
[2017-04-20 11:34] LABS: BASO% 0.3 % (0.0-0.8); EOS# 0.15 X1000 (0.0-0.7); EOS% 1.3 % (0.0-10.0); HEMATOCRIT 38.9 % (37.0-47.0); HEMOGLOBIN 12.6 g/dL (12.0-16.0); IMM GRAN# 0.03 X1000 (0.0-0.04); IMM GRAN% 0.3 % (0.0-0.5); LYMPH# 2.95 X1000 (1.2-3.4); LYMPH% 25.1 % (20.5-51.1); MCH 31.1 PG (27-31); MCHC 32.4 g/dL (33-37); MONO# 1.37 X1000 (0.11-0.59); MONO% 11.6 % (1.7-9.3); MPV 10.8 FL (7.4-10.4); NEUT% 61.4 % (42.2-75.2); PLT 337 X1000 (130-400); RBC 4.05 XMIL (4.2-5.4)
[2017-04-20 11:36] LABS: CK INDEX 3.3 (0.0-2.5); CK-MB 61.26 ng/mL (0.0-5.0)
[2017-04-20] MEDS: LEVOPHED 8 MG in D5 1/2 NS 250 ML IV SCH (11:45)
[2017-04-20 11:52] LABS: AGAP 25; ALBUMIN 4.1 g/dL (3.5-5.0); ALKALINE PHOSPHATASE 58 U/L (32-104); BUN 69 mg/dL (8-22); CALCIUM 8.6 mg/dL (8.8-10.2); CHLORIDE 100 mmol/L (98-107); COSMO 303; GOT 39 U/L (10-30); GPT 19 U/L (10-36); POTASSIUM 5.3 mmol/L (3.5-5.1); SODIUM 142 mmol/L (136-145); TCO2 17 mmol/L (25-35); TOTAL BILIRUBIN < 0.10 mg/dL (0.20-1.00); TOTAL PROTEIN 6.4 g/dL (6.3-8.3)
[2017-04-20 11:58] LABS: URINE CULTURE NEEDED? NO; URINE MICRO REVIEW NEEDED? NO; URINE SOURCE CLEAN CATCH
[2017-04-20 12:06] LABS: BILIRUBIN URINE NEGATIVE (NEGATIVE); BLOOD URINE MODERATE (NEGATIVE); COLOR YELLOW; GLUCOSE URINE NEGATIVE (NEGATIVE); LEUKOCYTES URINE NEGATIVE (NEGATIVE); NITRITE URINE NEGATIVE (NEGATIVE); PROTEIN URINE TRACE mg/dL (NEGATIVE); TURBIDITY URINE CLEAR (CLEAR); UR EPITHELIAL CELLS <10 /HPF (<10); URINE BACTERIA NEGATIVE /HPF; URINE RBC <10 /HPF (<10); URINE WBC <10 /HPF (<10); UROBILINOGEN URINE NORMAL (NORMAL)
[2017-04-20 12:34] LABS: UR AMPHETAMINES QUAL PRESUMPTIVE POSITIVE (NONE DETECT); UR BARBITUATES QUAL NONE DETECTED (NONE DETECT); UR BENZODIAZEPIN QUAL NONE DETECTED (NONE DETECT); UR CANNABINOIDS QUAL NONE DETECTED (NONE DETECT); UR COCAINE QUAL NONE DETECTED (NONE DETECT); UR METHADONE QUAL NONE DETECTED (NONE DETECT); UR OPIATES QUAL PRESUMPTIVE POSITIVE (NONE DETECT); UR OXYCODONE QUAL NONE DETECTED (NONE DETECT); UR PCP QUAL NONE DETECTED (NONE DETECT)
--- NOTE | 2017-04-20 12:55 | EKG Report ---
Test Performed on : 04/20/2017 10:01:54 AM Test Reason : AMS Blood Pressure : / mmHG Vent. Rate : 069 BPM Atrial Rate : 069 BPM P-R Int : 128 ms QRS Dur : 080 ms QT Int : 414 ms P-R-T Axes : -26 053 061 degrees QTc Int : 443 ms Normal sinus rhythm. Normal ECG When compared with ECG of 13-NOV-2016 13:42, No significant change was found Unconfirmed Result
[2017-04-20 18:25] LABS: ALLEN TEST NO; BE -12.3 mmoll (-3.0-3.0); BLOOD TYPE ARTERIAL; DRAW SITE R BRACHIAL; METHB 0.7 % (0.0-1.5); MODALITY CANNULA; O2(CT) 15.6 mL/dL (15.0-23.0); PCO2(98.6) 30 mmHg (35-45); PO2(98.6) 79 mmHg (60-100); SAMPLE BLOOD; SAO2 96.3 % (95.0-100.0); THB 11.6 g/dL (11.5-17.4); pH(98.6) 7.26 (7.35-7.45)
--- NOTE | 2017-04-20 18:34 | HISTORY AND PHYSICAL ---
HISTORY OF PRESENT ILLNESS: Ms. Olivas is a 66-year-old white female with a known case of coronary artery disease, severe degenerative disk disease in the lumbar spine and some renal failure as well as hypertension. She came to the emergency room in drowsy state. She was hypotensive, systolic blood pressure was 70, and she was admitted to ICU. Family says she worked more last night and she was very weak and she became lethargic in the morning. According to the family, she did not have any chest pain. She had a stent placed in her heart about 2 years ago and she had acute myocardial infarction and she also had 2 section in the past. She does smoke about a pack of cigarettes per day. She is not allergic to any medications. States she down on some of her pain medications and according to the family she has been taking 6-8 aspirins daily. MEDICATIONS: Klonopin 1 mg twice a day p.r.n. Carvedilol 6.25 mg b.i.d. Calcium carbonate with vitamin D3. Aspirin 81 mg. Eliquis 5 mg b.i.d. Albuterol inhaler. Tylenol. REVIEW OF SYSTEMS: Otherwise, the patient is semicomatose and we cannot really get the review of systems at the present time. PHYSICAL EXAMINATION: GENERAL: Patient is stuporous. VITAL SIGNS: Reveal temperature normal, pulse 74 per minute, respiratory rate 17 per minute, blood pressure 109/71 with 10 mcg of Levophed. She is on 3 L per nasal cannula of oxygen. Her weight is 200 pounds and she is 5 feet tall. She is obese. HEENT: Head normocephalic, pupils PERRLA. Fundus examination could not be done. Neck supple. JVP normal. ENT examination unremarkable. There is no evidence of lymphadenopathy, thyroid enlargement, pedal edema, calf tenderness, anemia, cyanosis or clubbing. Pedal pulses well felt. BREASTS: Exam normal. CHEST: Normal inspection. LUNGS: Clear on auscultation. PMI in the normal position. HEART: Sounds normal. No murmur, gallop or rub noted. ABDOMEN: Obese. Hernial orifices normal. No guarding, rigidity, free fluid, masses, or organomegaly. Bowel sounds normal. She has scars from previous surgery. RECTAL: Deferred. ADMINISTRATIVE SUPPORT CLERK/HIGHER FUNCTIONS: The patient is stuporous. Cranial nerves normal. Motor and sensory system examination unremarkable. Deep tendon reflexes normal. Plantars downgoing. Skull and spine examination normal for age. No cerebellar signs or signs of meningeal irritation. LOCOMOTOR: Unremarkable. SKIN: Unremarkable. LABORATORY DATA: Reveals a normal CBC with mild leukocytosis. Blood gases revealed pH 7.27, pCO2 30, PO2 is 116. It could be salicylate toxicity and she has renal failure with BUN of 69, creatinine of 4.8, urinalysis otherwise is negative. IMPRESSION: Hypotension. Sudden onset of hypotension, history of coronary artery disease, degenerative disk disease in the lumbar spine. PLAN: Plan to hold all her p.o. medications. Continue with Levophed. Watch her in intensive care unit. cc: Alexis Faustin MD
[2017-04-20] MEDS ORDERED: BLISTEX MEDICATED BERRY LIP BALM TOP PRN (21:24)
[2017-04-20] MEDS: NS 1,000 ML IV SCH (23:39)
--- NOTE | 2017-04-20 23:41 | CONSULTATION ---
DATE OF CONSULTATION: 04/20/2017 IMPRESSION: 1. Hypotension, probably related to intravascular volume depletion after 2 days of very little oral intake. 2. Acute renal failure. 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 3. Atherosclerotic coronary disease with history of previous coronary angioplasty/stent approximately 2 years ago. 4. History of previous episode of acute renal failure years ago. Also potentially related to aspirin. 5. COPD. 6. Hypertension. 7. Hypercholesterolemia. 8. Recent DVT approximately 6 months ago. Patient continues on anticoagulation. RECOMMENDATIONS: 1. Continue intravenous fluids, effectively replacing current urine output. 2. Continue intravenous pressors as required. 3. Echocardiography. 4. Adjust anticoagulation dose, given renal dysfunction. HISTORY: This 66-year-old, white female, with past history of hypertension, atherosclerotic coronary disease, previous acute renal failure, possibly related to aspirin use, COPD and hypercholesterolemia, was admitted to emergency room after she was brought there by family with lethargy. She has been taking aspirin on a regular basis for pain, in addition to Lortab. She has chronic lower extremity pain related to chronic back disorder. Her family indicates that she may take up to 8 aspirin a day, as far as they know, but she is aware of their trying to keep her from taking aspirin. In the past week, she had her Lortab dose reduced. She has continued to utilize aspirin for pain relief with her bilateral lower extremity pain. She had started to develop weakness and lethargy. For the past couple days, she has not had any significant oral intake. She was getting progressively weaker, and is brought to the emergency room. She was found to be hypotensive with lab evidence of acute renal failure. She also demonstrated significantly elevated CPK with normal troponin, suggesting some component of rhabdomyolysis. PAST MEDICAL HISTORY: 1. Atherosclerotic coronary disease with history of previous coronary angioplasty/stent approximately 2 years ago. Patient has continued without angina. 2. Recent DVT approximately 6 months ago. Patient continues on anticoagulation. 3. Hypertension. 4. History of previous acute renal failure, possibly related to aspirin use. 5. COPD. 6. Hypercholesterolemia. PAST SURGICAL HISTORY: Includes previous section. Family is not aware of any other surgeries, but they are not certain as to whether they have a complete list. CURRENT MEDICATIONS: As listed. SOCIAL HISTORY: She has history of chronic cigarette use for many years. Currently smokes 1/2 pack of cigarettes per day. She does not use alcohol. FAMILY HISTORY: Negative for premature coronary disease. REVIEW OF SYSTEMS: Not reliably obtainable, given patient's lethargy. PHYSICAL EXAMINATION: General: This is a older white female, in no distress, who is somewhat lethargic. She can be aroused to verbal stimuli and mumbles answers to questions. vital signs: Blood pressure 95/50, heart rate 95 and regular, with ECG monitor showing sinus rhythm. HEENT: Extraocular movements intact. Mucous membranes appear somewhat dry. Neck: Supple without discernible jugular venous distention. Chest: Clear to auscultation. Cardiac: Reveals a regular rate and rhythm without appreciable murmur or gallop. Abdomen: Soft, nontender. Bowel sounds are normal. Extremities: Without edema. Neurologic: Reveals her to be lethargic. She will respond to verbal stimuli and mumbles answers to questions. She moves all 4 extremities equally well. Skin: Warm and dry. PERTINENT DATA: Twelve lead EKG demonstrates sinus rhythm, is within normal limits. LABORATORY DATA: Remarkable for BUN 69, creatinine 4.8. CPK 1,874, CPK MB 61.26, troponin less than 0.01. Chest x-ray reported to demonstrate no acute abnormality. cc: Karl Thompson MD
[2017-04-21] MEDS ORDERED: LASIX IV ONE (03:50)
[2017-04-21] MEDS: LEVOPHED 8 MG in D5 1/2 NS 250 ML IV SCH (04:45)
[2017-04-21 06:10] LABS: MANUAL DIFF NEEDED? NO
[2017-04-21 06:26] LABS: BASO% 0.2 % (0.0-0.8); EOS% 0.8 % (0.0-10.0); HEMATOCRIT 39.6 % (37.0-47.0); HEMOGLOBIN 12.8 g/dL (12.0-16.0); IMM GRAN# 0.02 X1000 (0.0-0.04); IMM GRAN% 0.2 % (0.0-0.5); LYMPH# 2.49 X1000 (1.2-3.4); LYMPH% 19.6 % (20.5-51.1); MCH 31.2 PG (27-31); MCHC 32.3 g/dL (33-37); MCV 96.6 FL (81-99); MONO# 1.29 X1000 (0.11-0.59); MONO% 10.1 % (1.7-9.3); NEUT% 69.1 % (42.2-75.2); PLT 330 X1000 (130-400)
[2017-04-21 06:42] LABS: CALCIUM 8.9 mg/dL (8.8-10.2); POTASSIUM 4.5 mmol/L (3.5-5.1)
--- NOTE | 2017-04-21 07:03 | EKG Report ---
Test Performed on : 04/21/2017 06:13:39 AM Test Reason : CP Blood Pressure : / mmHG Vent. Rate : 101 BPM Atrial Rate : 101 BPM P-R Int : 138 ms QRS Dur : 084 ms QT Int : 342 ms P-R-T Axes : 014 054 106 degrees QTc Int : 443 ms Sinus tachycardia. with premature supraventricular complexes. Nonspecific T wave abnormality Abnormal ECG When compared with ECG of 20-APR-2017 10:01, premature supraventricular complexes. are now present Nonspecific T wave abnormality now evident in Lateral leads Confirmed by Brendon GRANDE, Orestes Lambert ([id number]) on 04/25/2017 12:36:39 PM
--- NOTE | 2017-04-21 07:38 | Diag Imaging Result Doc PS360 ---
CHEST-PORTABLE - 04/21/2017 INDICATION: Altered mental status TECHNIQUE: COMPARISON: 04/20/2017 FINDINGS: The lungs are normally expanded and clear. Heart size and mediastinal contours are normal. No pneumothorax or pleural effusion. IMPRESSION: Negative exam. Electronically signed by Mervin Hernandez 04/21/2017 7:35 AM
--- NOTE | 2017-04-21 09:06 | PROGRESS NOTE ---
DATE: 04/21/2017 SUBJECTIVE: The patient more lucid this morning. She denies any chest discomfort. OBJECTIVE: Vital Signs: Blood pressure 114/79, heart rate 100 and regular with ECG monitor showing sinus rhythm. Oxygen saturation 95% on nasal cannula at 3 L per minute. Neck: There is no significant jugular venous distention. Chest: Auscultation of the chest reveals a few scattered rhonchi. Cardiac Exam: Reveals a regular rate and rhythm without appreciable murmur or gallop. Extremities: There is no evidence of peripheral edema. LABORATORY DATA: Demonstrates BUN 54, creatinine 2.3, both improving. IMPRESSION: 1. Acute renal failure. Suspect combination of aspirin-induced nephropathy and hypovolemia. 2. Atherosclerotic coronary disease with history of previous coronary angioplasty/stent approximately 2 years ago. 3. Chronic obstructive pulmonary disease. 4. Hypertension. 5. Hypercholesterolemia. 6. Recent deep vein thrombosis approximately 6 months ago. Patient has been continued on anticoagulation. RECOMMENDATIONS: 1. Continue intravenous fluids. 2. Echocardiography. 3. Nephrology consult. cc: MD Alexis Cisneros MD
--- NOTE | 2017-04-21 09:48 | PROGRESS NOTE ---
DATE: 04/21/2017 SUBJECTIVE: Ms. Olivas continues to be on Levophed. She is very congested in the chest. We will start her on IV Rocephin as well as DuoNeb treatment. She was given some Lasix last night, and she had good output with that. She is seen by the nephrology nurse practitioner and by Dr. Thompson also. Overall condition is improved. She is more alert. Vital signs are stable. cc: Alexis Faustin MD
[2017-04-21 10:02] LABS: UR CREAT RANDOM 18.8 mg/dL (11-20); UR PROT RANDOM < 4.0 mg/dL
[2017-04-21] MEDS: ROCEPHIN 1 GM/NS 1 GM/50 ML IVPB IV SCH (10:08)
[2017-04-21] MEDS: DUONEB (A & A) INH PRN (12:13)
--- NOTE | 2017-04-21 12:27 | CONSULTATION ---
DATE OF CONSULTATION: 04/21/2017 REASON FOR ADMISSION: Altered mental status with increased lethargy. REASON FOR CONSULTATION: Acute kidney injury. HISTORY OF PRESENT ILLNESS: Ms. Olivas is a 66-year-old white female who has not been seen by our service in the past. She is subsequently in ICU secondary to having a severe hypotensive episode with a drop in her blood pressure and altered mental status. She was seen in the Emergency Department after she had become weak and lethargic. Family stated that she did not have any complaints of chest pain, fever, or chills. She does have a history of a cardiac stent approximately 2 years ago with a myocardial infarction. She is a current 1-1/2- bfdj-dcn-yet smoker for over 45 years. Patient currently denies any chest pain. No increased work of breathing. No nausea or vomiting. No diarrhea. Positive weakness. No fever or chills. PAST MEDICAL HISTORY: Noted with a history of renal insufficiency. Baseline creatinine has seen at 1 on her last labs prior to her hospitalization. She has a history of coronary artery disease with an MT in the last year. She has degenerative disk disease in the lumbar spine. History of hypertension. She is also known to have hypercholesterolemia, history of DVT for which she is still on anticoagulation, atherosclerotic coronary disease with a history of angioplasty and stents, and COPD. She has a history of fibromyalgia and chronic narcotic usage. SURGICAL HISTORY: She has had a section in the past. She has also had coronary artery disease with stent placement 2 years ago, on anticoagulation. SOCIAL HISTORY: She has family who are attentive to her care. She has chronic tobacco use. She reports no alcohol or illicit drug use. FAMILY HISTORY: Noncontributory, though she states there is no renal disease. CURRENT ALLERGIES: Listed as no known drug allergies. HOME MEDICATIONS: Listed as Proventil inhaler, lisinopril hydrochlorothiazide, Coreg, Percocet, Singulair, Klonopin, hydrocodone, APAP, Flonase, aspirin, calcium carbonate, vitamin D3, DuoNeb, Tylenol, Eliquis, and Aeroneb nebulizers. REVIEW OF SYSTEMS: Review of systems x10, with most information obtained from chart and verified by patient, with pertinent positives listed above in the HPI. PHYSICAL EXAMINATION: Vital Signs: Temperature 99.3 degrees, blood pressure 93 /56, heart rate 92, respirations 16. She is on 3L nasal cannula. Last recorded saturation was 95%. She has had 644 in. She has had 2300 out per Oakley catheter. General: This is a 66-year- old white female. She is currently resting in bed. She is in the ICU. She remains on Levophed drip for pressor support. Skin: Warm and dry. HEENT: Normocephalic, atraumatic. Conjunctivae pale. She has NEELIMA. Mucous membranes moist. Neck: Supple. Trachea midline. No JVD. Cardiovascular: Regular rate and rhythm. No murmur or gallop appreciated. Lungs: Clear to auscultation anteriorly. Equal excursion on O2. Abdomen: Round, soft, nontender. Positive bowel sounds. Extremities: No edema. No clubbing or cyanosis. Genitourinary: Not inspected. Oakley catheter remains in place. Integumentary: She has scars to abdominal area, well- healed. No rashes or lesions evident. Neurological: She is lethargic. She is alert and oriented x2. LABORATORIES: Sodium of 144, potassium 4.5, chloride 108, CO2 of 17, BUN 54, creatinine 2.3 glucose 88, anion gap 19, calcium 8.9, and albumin 4.1. She has a plasma lactate of 0.8. White count 12.71, hemoglobin 12.8, hematocrit 39.6, with a platelet count of 330, 000. She has blood cultures that are currently pending. Urine output shows positive for amphetamines and opiates. Her ABGs this a.m. were pH 7.26, CO2 of 30, PO2 of 79, and bicarbonate 15.3 on 3L. ASSESSMENT AND PLAN: 1. Acute kidney injury. Patient's baseline creatinine is noted to be at 1. This appears multifactorial associated with hypotension and SARAH with diurectic affect. It has slowly improved with IV fluid hydration, from 4.8 down to 2.3. We will check urine electrolytes and a renal ultrasound. We agree with holding her nephrotoxic medications of her diuretics and her lisinopril combination with hydrochlorothiazide. We agree with continued accurate intake and output. She continues on Levophed for hypotension for support. No indications for any further intervention at this time. 2. Electrolytes and acid-base balance. Patient is mildly acidotic. Electrolytes remain stable. Acidosis may be related to hypotension and #1. We will continue to monitor. No indications for any intervention at this time. 3. Anemia. This is in target. 4. Shock. The patient does remain on Levophed for blood pressure support. This is followed by primary care team. I would like to thank you for allowing us to follow with this patient. Dictated by GENESIS Dominguez for Ruy Seo MD cc: GENESIS Dominguez MD Amit V. Vora, MD [facility]PITALWendy
--- NOTE | 2017-04-21 15:21 | Diag Imaging Result Doc PS360 ---
EXAM: US RENAL 2 (RETROPER) COMPLETE HISTORY: elevated creatinine TECHNIQUE: Transabdominal COMMENT: the kidneys are slightly atrophic measuring 8.6 x 4.8 x 4.9 cm on the right and 9.2 x 5.0 by 5.1 cm on the left. There is a 7.3 cm cyst in the upper pole of the left kidney and a 2.4 cm cyst also in the left upper pole. There is no evidence of hydronephrosis. The bladder is not distended there being a Oakley catheter present. IMPRESSION: No evidence of obstructive uropathy. Left renal cysts. Electronically signed by Mu Castro 04/21/2017 3:19 PM
--- NOTE | 2017-04-21 16:38 | ECHO REPORT ---
ORDER DATE: 04/20/2017 PROCEDURE: Echocardiogram. DATE OF STUDY: 04/20/2017. ECHOCARDIOGRAPHIC MEASUREMENTS: 1. Interventricular septum 1.4 2. Left ventricular posterior wall 1.4. 3. Diastolic diameter 4.0. 4. Left atrium 4.6. 5. Aorta 3.1. INTERPRETATION: 1. Technically suboptimal study. Poor acoustic window. 2. Aortic valve leaflets are trileaflet. 3. Pulmonic valve not well visualized. 4. Mitral valve was normal. There is mitral annular calcification. 5. Tricuspid valve was normal. Normal left ventricular cavity size. Estimated ejection fraction 65% to 70%. 6. There is hyperdynamic circulation. 7. There is mild mitral regurgitation. 8. Trace to mild tricuspid regurgitation. Peak velocity across the tricuspid valve was 2.8 m/sec. 9. Pulmonary artery systolic pressure of 40 mmHg. 10. Peak velocity across the aortic valve 2 m/sec. By Doppler studies, there is no aortic stenosis or regurgitation. 11. There is no pericardial effusion or obvious intracardiac mass or thrombus seen. cc: MD Karl Sy MD Amit V. Vora, MD
[2017-04-21] MEDS: NS 1,000 ML IV SCH (19:26)
[2017-04-21] MEDS: KLONOPIN PO SCH (21:22)
[2017-04-22 04:23] LABS: ALLEN TEST YES; BE -4.7 mmoll (-3.0-3.0); BLOOD TYPE ARTERIAL; DRAW SITE R RADIAL; METHB 0.9 % (0.0-1.5); PCO2(98.6) 37 mmHg (35-45); PO2(98.6) 70 mmHg (60-100); SAMPLE BLOOD; SAO2 94.4 % (95.0-100.0); THB 9.9 g/dL (11.5-17.4); pH(98.6) 7.35 (7.35-7.45)
[2017-04-22 04:24] LABS: MODALITY CANNULA
[2017-04-22 06:04] LABS: ALBUMIN 3.3 g/dL (3.5-5.0); CALCIUM 8.6 mg/dL (8.8-10.2)
[2017-04-22] MEDS: DUONEB (A & A) INH PRN ×4 (08:21→19:25)
[2017-04-22] MEDS: ROCEPHIN 1 GM/NS 1 GM/50 ML IVPB IV SCH (08:28)
[2017-04-22] MEDS: KLONOPIN PO SCH ×3 (08:28→21:49)
--- NOTE | 2017-04-22 10:52 | PROGRESS NOTE ---
DATE: 04/22/2017 Ms. Olivas is doing better. Her ABGs show significant improvement. The pCO2 is up to 37, pH 7.35. Electrolytes are better. BUN and creatinine are improving. We can move her out today, preferably for CICU. -2 cc: Alexis Faustin MD
[2017-04-22] MEDS ORDERED: VENTOLIN HFA INH PRN (11:25)
[2017-04-22] MEDS ORDERED: [UNRECOGNIZED DRUG - OTHER] MC PRN (11:25)
--- NOTE | 2017-04-22 14:58 | PROGRESS NOTE ---
DATE: 04/22/2017 TIME SEEN: 08. SUBJECTIVE: Ms. Olivas is sitting up in a chair. She is eating her breakfast. She denies chest pain or increased work of breathing. She remains on Levophed drip though they are attempting to wean it off in the next hour. OBJECTIVE: Her most recent vital signs 97.3, blood pressure 113/74, heart rate 99, respirations 18. She is on 3 L nasal cannula. Her last recorded saturation is 95%. She has had 1726 In. She has had 2735 out. She is in a -2.5 L fluid balance. LABORATORY DATA: Sodium 141, potassium 4, chloride 108, CO2 18. BUN 33, creatinine 1.1, glucose 89. Her anion gap is 15. Calcium 8.6, phosphorus 2, albumin 3.3. Her last hemoglobin is 12.8 on 04/21/2017. Her last ABGs: pH 7.35, CO2 of 37, PO2 of 70, bicarb 21.2 on 3 L. PHYSICAL EXAMINATION: General: This is a 66-year-old white female. She is sitting in a chair. She is in no acute distress. Her skin is warm and dry. HEENT: Normocephalic, atraumatic. Conjunctiva is pink. She has NEELIMA. Mucous membranes moist. Neck is supple. Trachea midline. No JVD. Cardiovascular: She has regular rate and rhythm on the monitor. No murmur or gallop appreciated. Lungs are clear to auscultation anteriorly. Equal excursion. She remains on O2. Abdomen is round, soft, nontender. Positive bowel sounds. Extremities: She continues with 2+ lower extremity edema. While legs are dependent, they are a slight red in color. No clubbing or cyanosis. Genitourinary: Patient has Oakley catheter in place with adequate urine out. Integumentary: Again, slightly darkened area to her lower extremities while these are dependent. Neurologic: She is alert and oriented x2. ASSESSMENT AND PLAN: 1. Acute kidney injury. Patient has returned to her baseline creatinine of 1.1 today. She has an estimated GFR of 50%. She is currently being weaned off her Levophed. Her vital signs are stable. Adequate urine out. No indications for any intervention at this time. 2. Electrolytes and acid-base balance. Patient has remained acidotic. Again, this may be related to #1 and possibly the fact that she has been taking nonsteroidal anti-inflammatories for a long time at her home. No indications for intervention. 3. Anemia. This is stable. 4. Shock. Again, this is improving. Blood pressure is stable. Adequate urine out and her Levophed is being weaned off. This is followed by the primary care team. I would like to thank you for allowing us to follow with this patient. Dictated by GENESIS Dominguez for Ruy Seo MD cc: GENESIS Dominguez MD Amit V. Vora, MD
[2017-04-22] MEDS: NS 1,000 ML IV SCH (19:22)
--- NOTE | 2017-04-22 19:59 | PROGRESS NOTE ---
DATE: 04/22/2017 SUBJECTIVE: Patient continues without dyspnea or chest discomfort. OBJECTIVE: Vital Signs: Blood pressure 115/72 with a heart rate of 95. Oxygen saturation 96% on room air. There is no significant jugular venous distention. Chest: Clear to auscultation. Cardiac: Reveals a regular rate and rhythm without appreciable murmur or gallop. Extremities: There is no evidence of peripheral edema. LABORATORY DATA/DIAGNOSTICS: Remarkable for BUN 33, creatinine 1.1. Echocardiography indicates normal left ventricular systolic function without wall motion abnormality. IMPRESSION: 1. Acute renal failure, improved. Suspect combination of aspirin and intravascular volume depletion. 2. Atherosclerotic coronary disease. Stable. 3. Chronic obstructive pulmonary disease. 4. Hypertension. 5. Hypercholesterolemia. 6. Recent deep venous thrombosis approximately 6 months ago. Patient has been on anticoagulation. RECOMMENDATIONS: 1. Continue medical management of patient's coronary disease. 2. No additional Cardiology suggestions. We will see further on an as needed basis. cc: MD Alexis Cisneros MD
[2017-04-22] MEDS: COREG PO SCH (21:49)
[2017-04-22] MEDS: ELIQUIS PO SCH (21:49)
[2017-04-22] MEDS ORDERED: DUONEB (A & A) ONE (23:13)
[2017-04-23] MEDS: DUONEB (A & A) INH PRN ×2 (03:30→16:15)
[2017-04-23 06:04] LABS: AGAP 13; ALBUMIN 3.2 g/dL (3.5-5.0); BUN 17 mg/dL (8-22); CALCIUM 8.8 mg/dL (8.8-10.2); CHLORIDE 107 mmol/L (98-107); COSMO 282; POTASSIUM 3.7 mmol/L (3.5-5.1); SODIUM 141 mmol/L (136-145); TCO2 21 mmol/L (25-35)
[2017-04-23] MEDS: ASPIRIN EC PO SCH (08:46)
[2017-04-23] MEDS: TYLENOL PO PRN ×2 (08:46→20:42)
[2017-04-23] MEDS: KLONOPIN PO SCH ×4 (08:46→20:42)
[2017-04-23] MEDS: ROCEPHIN 1 GM/NS 1 GM/50 ML IVPB IV SCH (08:46)
[2017-04-23] MEDS: CALTRATE 600 + D PO SCH (08:46)
[2017-04-23] MEDS: COREG PO SCH ×2 (08:46→20:42)
[2017-04-23] MEDS: ELIQUIS PO SCH ×2 (08:46→20:42)
--- NOTE | 2017-04-23 10:28 | PROGRESS NOTE ---
DATE: 04/23/2017 SUBJECTIVE: The patient is sitting up in bed. She states that she is not ambulated because of her catheter. Feels adequate otherwise. OBJECTIVE: Vital Signs: Afebrile, pulse 72, respiratory rate 18, blood pressure 146/77. She is off pressor support. Intake 1.8 L; output 1.1 L. General: This is a middle-aged female, sitting up in bed awake and alert, no acute distress. HEENT: Normocephalic, atraumatic. Oral mucosa moist. Neck: Supple. Trachea midline. No JVD. Cardiovascular: Regular rate and rhythm. She has no murmur or gallop appreciated. Pulmonary: She has equal excursion. She is clear bilaterally. She remains on O2 supplementation via nasal cannula. Abdomen: Soft, with positive bowel sounds. : Not inspected. She has a Oakley catheter with a moderate amount of clear yellow urine noted. Extremities: There is 1+ to 2+ pretibial edema. No clubbing, cyanosis. She is moving all extremities. Integumentary: Skin is warm and dry without rash or lesion. She does have vascular changes noted in bilateral lower extremities. LAB DATA: Sodium 141, potassium 3.7, BUN 17, creatinine 0.8, and an EGFR of greater than 60. ASSESSMENT AND PLAN: Acute kidney injury, resolved. Her renal function has returned to normal, and her glomerular filtration rate is greater than 60 now. We will sign off at this time. She can continue to follow with her primary, and we will be glad to see her as an outpatient if her renal function worsens. Thank you for allowing us to participate in the care this patient. Dictated by GENESIS Ocasio for Ruy Seo MD cc: MD Alexis Bose MD
--- NOTE | 2017-04-23 11:10 | PROGRESS NOTE ---
DATE: 04/23/2017 Ms. Olivas is doing better. Her chemistry profile is improving. BUN and creatinine are back to almost close to normal now. We are going to start physical therapy. If she continues to improve we might let her go home by Wednesday. Overall condition is significantly improved. Oral intake is improving. cc: Alexis Faustin MD
[2017-04-23] MEDS: NS 1,000 ML IV SCH (15:49)
[2017-04-23] MEDS ORDERED: DUONEB (A & A) ONE (19:30)
[2017-04-24] MEDS: TYLENOL PO PRN (04:20)
[2017-04-24 06:02] LABS: AGAP 12; ALBUMIN 3.2 g/dL (3.5-5.0); BUN 19 mg/dL (8-22); CALCIUM 8.4 mg/dL (8.8-10.2); CHLORIDE 107 mmol/L (98-107); COSMO 285; POTASSIUM 3.8 mmol/L (3.5-5.1); SODIUM 142 mmol/L (136-145); TCO2 23 mmol/L (25-35)
[2017-04-24] MEDS: ROCEPHIN 1 GM/NS 1 GM/50 ML IVPB IV SCH ×2 (08:01→08:24)
[2017-04-24] MEDS: ASPIRIN EC PO SCH (08:01)
[2017-04-24] MEDS: ELIQUIS PO SCH ×2 (08:01→20:09)
[2017-04-24] MEDS: CALTRATE 600 + D PO SCH (08:01)
[2017-04-24] MEDS: COREG PO SCH ×2 (08:01→20:08)
[2017-04-24] MEDS: KLONOPIN PO SCH ×4 (08:01→20:16)
--- NOTE | 2017-04-24 12:41 | PROGRESS NOTE ---
DATE: 04/24/2017 Ms. Olivas is complaining about severe pain in both hips. She has severe arthritis as well as degenerative disk disease. She has been on chronic pain medication. We will start Orange 7.5 q.6 hours p.r.n. Her electrolyte status and CBC are normal. Physical therapy is working on her. Overall condition is unchanged. -7 cc: Alexis Faustin MD
[2017-04-24] MEDS: NS 1,000 ML IV SCH (13:40)
[2017-04-24] MEDS: NORCO-7.5 PO PRN ×2 (13:43→20:08)
[2017-04-24] MEDS: DUONEB (A & A) INH PRN (20:13)
[2017-04-25] MEDS: NORCO-7.5 PO PRN ×4 (03:32→23:20)
[2017-04-25] MEDS: NS 1,000 ML IV SCH (06:00)
[2017-04-25 06:28] LABS: AGAP 10; ALBUMIN 3.2 g/dL (3.5-5.0); BUN 16 mg/dL (8-22); CHLORIDE 110 mmol/L (98-107); COSMO 287; POTASSIUM 4.3 mmol/L (3.5-5.1); SODIUM 144 mmol/L (136-145); TCO2 24 mmol/L (25-35)
[2017-04-25] MEDS: ROCEPHIN 1 GM/NS 1 GM/50 ML IVPB IV SCH ×2 (08:11→09:49)
[2017-04-25] MEDS: ELIQUIS PO SCH ×2 (08:12→20:58)
[2017-04-25] MEDS: CALTRATE 600 + D PO SCH (08:12)
[2017-04-25] MEDS: COREG PO SCH ×2 (08:12→20:58)
[2017-04-25] MEDS: KLONOPIN PO SCH ×4 (08:12→20:58)
[2017-04-25] MEDS: ASPIRIN EC PO SCH (08:12)
--- NOTE | 2017-04-25 11:31 | PROGRESS NOTE ---
DATE: 04/25/2017 Ms Olivas is doing fairly well. Her lungs are clear. She is in regular sinus rhythm. Vital signs are stable. Electrolytes still were stable. cc: Alexis Faustin MD
[2017-04-25] MEDS: DUONEB (A & A) INH PRN ×2 (15:50→19:51)
[2017-04-26] MEDS: NS 1,000 ML IV SCH ×2 (03:07→11:30)
[2017-04-26 05:56] LABS: AGAP 12; ALBUMIN 3.2 g/dL (3.5-5.0); BUN 15 mg/dL (8-22); CALCIUM 8.3 mg/dL (8.8-10.2); CHLORIDE 109 mmol/L (98-107); COSMO 285; POTASSIUM 4.4 mmol/L (3.5-5.1); SODIUM 143 mmol/L (136-145); TCO2 22 mmol/L (25-35)
[2017-04-26] MEDS: NORCO-7.5 PO PRN ×4 (05:57→23:30)
[2017-04-26] MEDS: KLONOPIN PO SCH ×4 (09:25→22:00)
[2017-04-26] MEDS: CALTRATE 600 + D PO SCH (09:25)
[2017-04-26] MEDS: ELIQUIS PO SCH ×2 (09:25→22:00)
[2017-04-26] MEDS: COREG PO SCH ×2 (09:25→22:00)
[2017-04-26] MEDS: ROCEPHIN 1 GM/NS 1 GM/50 ML IVPB IV SCH (09:26)
[2017-04-26] MEDS: ASPIRIN EC PO SCH (09:26)
--- NOTE | 2017-04-26 09:49 | Diag Imaging Result Doc PS360 ---
EXAM: XRAY HIP UNILATERAL LT HISTORY: Lt Hip Pain TECHNIQUE: Two views COMMENT: There is no evidence of fracture or dislocation. There is a bone island superior to the acetabulum in the iliac bone. Note is made of a calcified fibroid on the right side of the pelvis. IMPRESSION: No acute bony disease. Electronically signed by Mu Castro 04/26/2017 9:47 AM
--- NOTE | 2017-04-26 10:00 | PROGRESS NOTE ---
DATE: 04/26/2017 Ms. Olivas is doing better as far as her lungs are concerned. They sound much clearer. She has severe pain in the left hip. She says she even cannot walk. She is afraid to fall. Hip movements are painful. We will x-ray it and then, if it is negative, we will get orthopedic consult. cc: Alexis Faustin MD
[2017-04-27] MEDS: TYLENOL PO PRN (03:19)
[2017-04-27] MEDS: NORCO-7.5 PO PRN (05:32)
[2017-04-27 07:12] LABS: AGAP 11; ALBUMIN 3.1 g/dL (3.5-5.0); BUN 12 mg/dL (8-22); CALCIUM 8.5 mg/dL (8.8-10.2); CHLORIDE 108 mmol/L (98-107); COSMO 284; POTASSIUM 4.3 mmol/L (3.5-5.1); SODIUM 143 mmol/L (136-145); TCO2 24 mmol/L (25-35)
[2017-04-27] MEDS: DUONEB (A & A) INH PRN (07:37)
[2017-04-27 07:42] VITALS: BP 136/65
[2017-04-27] MEDS: ASPIRIN EC PO SCH (08:11)
[2017-04-27] MEDS: COREG PO SCH (08:11)
[2017-04-27] MEDS: CALTRATE 600 + D PO SCH (08:11)
[2017-04-27] MEDS: ELIQUIS PO SCH (08:11)
[2017-04-27] MEDS: KLONOPIN PO SCH ×2 (08:11)
[2017-04-27] MEDS: ROCEPHIN 1 GM/NS 1 GM/50 ML IVPB IV SCH (08:16)
--- NOTE | 2017-04-27 09:34 | PROGRESS NOTE ---
DATE: 04/27/2017 SUBJECTIVE: Ms. Olivas is doing better. Her lungs are clear. Heart sounds are normal. Left hip is still hurting; however, the x-ray is negative. She has a calcified fibroid in the pelvis, which is over on the other side. So, we do not know the cause of hip pain, probably referred pain from her back, but she has degenerative disk disease. We will discharge her today. We told her not to take too much aspirin. -8 cc: Alexis Faustin MD
--- NOTE | 2017-04-27 13:34 | DISCHARGE SUMMARY ---
ADMISSION DATE: 04/20/2017 DISCHARGE DATE: 04/27/2017 Ms. Olivas who is a 66-year-old white female, known case of coronary artery disease, degenerative disk disease in the lumbar spine was admitted with severe hypotension. She was almost stuporous when she came in. CT scan of the head was unremarkable for any intracranial disorder. The chest x-ray had initially revealed no other evidence of acute disease. Renal ultrasound was negative. The x-ray on the left side was negative. An echocardiogram on exam done with ejection fraction around 65-70%. Pulmonary vascular pressure, arterial systolic pressure was 40. COURSE IN THE HOSPITAL: She was admitted to ICU. Kept in ICU for at least 2 days. Had IV fluid was given to keep the blood pressure. Initially it was maintained with Levophed. She continued to improve. She had a Nephrology consult also as there was some early element of prerenal azotemia and some possible renal failure. She improved significantly on the fluid replacement. She is feeling better. She has severe pain in the left hip which she was getting physical therapy. She had some arthritis and some referred pain from the back to the left hip. X-ray of the left hip was negative. She is feeling better. We are going to discharge her today to be followed in the office in about 2 weeks. cc: Alexis Faustin MD
--- NOTE | 2017-04-29 18:02 | PROVIDER DOCUMENTATION ---
This chart was entered by Gena Hernandez Scribe, acting as scribe for Michael Aquino MD. HPI-General Adult - General Chief Complaint: Stroke-Like Symptoms Stated Complaint: STROKE SYMPTOMS Time Seen by Provider: 04/20/17 10:09 Source: patient, family Allergies/Adverse Reactions: Patient Allergies Allergy/AdvReac Type Severity Reaction Status Date / Time No Known Allergies Allergy Verified 04/20/17 10:59 Home Medications: Home Medication List Medication Instructions Recorded Confirmed Last Taken Type Nebulizer [Aeroneb Go Nebulizer] 1 each MC DAILY PRN PRN #1 each 03/24/17 Unknown Rx Hydrocodone/APAP 10 mg/325 mg 10 mg PO Q4HR PRN 04/24/17 04/24/17 Unknown History [Compton-10] Acetaminophen [Tylenol] 650 mg PO Q6H PRN PRN #0 tablet 04/27/17 Unknown Rx Apixaban [Eliquis] 5 mg PO BID tablet 04/27/17 Unknown Rx Aspirin EC 81 mg PO DAILY tablet 04/27/17 Unknown Rx Calcium Carbonate/Vit D3 [Caltrate 1 each PO DAILY tablet 04/27/17 Unknown Rx 600 + D] Carvedilol [Coreg] 6.25 mg PO BID tablet 04/27/17 Unknown Rx Clonazepam [Klonopin] 1 mg PO BID tablet 04/27/17 Unknown Rx - History of Present Illness -Gen Adult Nature of Presenting Problems: PT IS A 66YOF PRESENTING TO THE ED C/O WEAKNESS. PTS DAUGHTER STATES SHE NOTICED HER MORE LETHARGIC THAN SHE NORMALLY IS. NO SIGNS OF PARALYSIS OR SLURRED SPEECH, NO GREATER WEAKNESS ON ONE SIDE OR THE OTHER. NO OTHER COMPLAINTS AT THIS TIME Location of Pain/Injury: reports: none Pain Radiation: reports: no radiation Quality of Pain: reports: none Severity: reports: mild, moderate Onset/Duration: reports: 24 hours ago Timing: reports: still present Context/Activities at Onset: reports: light activity Modifying Factors: improves with: nothing Associated Symptoms: reports: fatigue, malaise, weakness. denies: arm pain, back/neck pain, chest pain, fever/chills, sinus congestion/drainage, nausea, shortness of breath, vomiting Similar Symptoms Previously?: No Recently seen or treated by another doctor?: No Review of Systems - Adult - REVIEW OF SYSTEMS - ADULT ROS:: ROS per family Constitutional: reports: see HPI, quinton. denies: chills, night sweats Eyes: reports: no symptoms reported Ears, Nose, Mouth & Throat: reports: no symptoms reported Cardiovascular: reports: no symptoms reported Respiratory: reports: no symptoms reported Gastrointestinal: reports: no symptoms reported Genitourinary: reports: no symptoms reported Musculoskeletal: reports: no symptoms reported Integumentary: reports: no symptoms reported Neurological: reports: see HPI. denies: paresthesia, slurred speech, tremors Psychiatric: reports: no symptoms reported Endocrine: reports: no symptoms reported Hematologic/Lymphatic: reports: no symptoms reported Allergic/Immunologic: reports: no symptoms reported All Other Systems: Reviewed and Negative Past History - Adult - PAST MEDICAL HISTORY-ADULT Review of Records: reports: Old Records Reviewed, Nursing Assessment Review, Medications Reviewed, Social history reviewed & non-contributory. Major Childhood Illnesses: reports: denies history Cardiovascular: reports: cardiac disease, blood clots, HTN, other (stents put in ) Respiratory: reports: asthma, COPD Gastrointestinal: reports: denies history Obstetrical/Gynecological: reports: denies history Genitourinary: reports: denies history Musculoskeletal: reports: chronic pain, intervertebral disc disease Neurological: reports: denies history Psychiatric: reports: depression Endocrine/Immune: reports: denies history Other Conditions: reports: denies history - PRIOR SURGERIES/PROCEDURES Surgical/Procedure History: reports: cardiac stent (cardiac stents x2), C- section - IMMUNIZATION STATUS Childhood Immunizations: See Nurse Assessment Flu Vaccine: See Nurse Assessment - FAMILY HISTORY Family History: reviewed, not pertinent - SOCIAL HISTORY Smoking: cigarettes, greater than 1 pack/day Substance Use: none/never, denies Alcohol Use Frequency: never Living Situation: family Physical Exam-General - PHYSICAL EXAM-ADULT Initial Vital Signs Reviewed: Yes - CONSTITUTIONAL General Appearance: appears well, alert, moderate distress, severe distress, lethargic, slow to respond. negative: no apparent distress, mild distress - EYES Eyes: PERRL/EOMI, pink conjunctivae - HEAD, EARS, NOSE, MOUTH & THROAT HENMT: normocephalic/atraumatic, moist mucous membranes, normal ENT inspection, TMs normal, pharynx normal - NECK Neck: non-tender, full range of motion, supple, normal inspection - RESPIRATORY Respiratory: chest non-tender, no pleuratic chest pain, no respiratory distress , no accessory muscle use, respiratory distress, wheezing, dull on percussion. negative: lungs clear, normal breath sounds - CARDIOVASCULAR Cardiovascular: normal peripheral pulses, regular rate, rhythm, no edema, no gallop, no JVD, no murmur - GASTROINTESTINAL (ABDOMEN) Abdominal Exam: normal bowel sounds, non tender, soft, no organomegaly, no pulsatile mass - LYMPHATIC Lymphatic: no adenopathy - MUSCULOSKELETAL Back Exam: normal inspection, no CVA tenderness, no vertebral tenderness Extremity: non-tender, no pedal edema, no calf tenderness, normal capillary refill, pelvis stable. negative: normal range of motion, normal gait, normal inspection - SKIN Integumentary: normal turgor, warm/dry, pallor. negative: normal color - NEUROLOGIC Neurologic: operations planner II-XII nml as tested, grossly normal, no motor/sensory deficits - PSYCHIATRIC Psych/Mental Status: normal thought content, normal thought process, oriented x 3, depressed affect. negative: normal mood/affect Progress - PLAN OF CARE/RESULTS Progress/Plan/Lab Results: Laboratory Tests 04/20/17 10:37 Specimen Type ARTERIAL Sample Site R RADIAL pH 7.27 L pCO2 30 L pO2 116 H HCO3 15.7 L Base Excess -11.8 L Oxyhemoglobin 96.4 ABG O2 Sat (Calculated) 17.0 ABG O2 Saturation 97.8 ABG Carboxyhemoglobin 0.50 ABG Methemoglobin 0.9 Abhinav Test YES A-a O2 Difference 75.0 Total Hemoglobin 12.4 Lactate 0.70 Liter Flow 3.0 Blood Gas Modality CANNULA FiO2 % 32.0 Orders Category Date Time Status Cardiac Monitoring DIRECTED Care 04/20/17 10:27 Active Finger Stick Blood Sugar (ED) DIRECTED Care 04/20/17 10:27 Active Oxygen Therapy- ED Nursing DIRECTED Care 04/20/17 10:27 Active Saline Loc NOW Care 04/20/17 10:27 Active CHEST-PORTABLE [RAD] Stat Exams 04/20/17 10:27 Completed HEAD W/O CONTRAST [CT] Stat Exams 04/20/17 10:15 Completed ABG [RESP] Routine Lab 04/20/17 10:37 Completed ABG [RESP] Routine Lab 04/20/17 10:49 Ordered ALCOHOL BLOOD Stat Lab 04/20/17 10:35 Received BLOOD CULTURE [BLDCUL] Stat Lab 04/20/17 10:35 Ordered CBC WITH ELECTRONIC DIFF [HEME] Stat Lab 04/20/17 10:35 Results CK PROFILE [SP CHEM] Stat Lab 04/20/17 10:35 Received LACTATE, PLASMA [CHEM] Stat Lab 04/20/17 10:35 Received PTT [COAG] Stat Lab 04/20/17 10:35 Received TROPONIN T Stat Lab 04/20/17 10:35 Received URINALYSIS W/POSS RFLX CULT-1 [URINALYSIS] Stat Lab 04/20/17 10:27 Uncollected URINE DRUG SCREEN Stat Lab 04/20/17 10:27 Uncollected 0.9% Sodium Chloride Inj [Ns] 1,000 ml Med 04/20/17 10:32 Discontinued .ROUTE As Directed 0.9% Sodium Chloride Inj [Ns] 1,000 ml Med 04/20/17 10:57 Active IV 999 mls/hr Albuterol 2.5MG/Ipratrop 0.5MG [Duoneb (A & A)] Med 04/20/17 10:48 Discontinued 3 ml INH NOW ONE Aerosol Treatments Routine Oth 04/20/17 10:48 Active Aerosol Treatments Stat Oth 04/20/17 10:48 Active Pulse Oximetry Stat Oth 04/20/17 10:27 Active neb [Aerosol Treatments] Stat Oth 04/20/17 10:36 Active EKG [EKG] Stat Ther 04/20/17 10:27 Ordered Vital Signs - 24 hr 04/20/17 10:42 04/20/17 10:55 Temperature 97.9 F Pulse Rate 98 H 79 Respiratory Rate 20 20 Blood Pressure 77/47 72/50 O2 Sat by Pulse Oximetry 96 98 Result Diagrams: 04/21/17 04:30 04/27/17 06:02 - XRAY 1 XRAY: Bilateral XRAY Study: Chest Impression: Normal (NAD - WEATHERS) - CT/MRI 1 CT Study: Head Impression: Normal (NO EVIDENCE OF ACUTE INTRACRANIAL PATHOLOGY - RODRIGUEZ) Departure - Departure Date of Disposition Decision: 04/20/17 Time of Disposition Decision: 10:30 DIAGNOSIS: Altered mental status Qualifiers: Altered mental status type: transient alteration of awareness Qualified Code(s) : R40.4 - Transient alteration of awareness Disposition: ADMITTED INPATIENT 09 Certified Medical Emergency: Emergent Condition: Stable - Critical Care Note This patient required my direct & personal management of CC.: No This chart was documented by the indicated scribe, (Gena Hernandez Scribe) and accurately reflects the services I performed and decisions made by me, Michael Aquino MD, as attested by the provider's signature.
--- NOTE | 2017-04-30 17:30 | DISCHARGE SUMMARY ---
ADMISSION DATE: 04/20/2017 DISCHARGE DATE: 04/27/2017 DISCHARGE SUMMARY ADDENDUM: Ms. Olivas was admitted with severe hypotension, renal failure. She was in shock. Blood pressure was maintained with Levophed. She had Cardiology and Nephrology consultations. She had hypovolemic shock when she was admitted. cc: Alexis Faustin MD
--- NOTE | 2017-05-11 09:30 | DISCHARGE SUMMARY ---
ADMISSION DATE: 04/20/2017 DISCHARGE DATE: 04/27/2017 DISCHARGE SUMMARY ADDENDUM: Ms. Olivas was initially admitted with acute renal failure with a creatinine of 4.8. She was hypotensive. Her blood pressure was 77/47. She was given IV fluids as well as a IV Levophed. I personally feel like she had hypovolemic shock as well as other ill- defined causes of shock of which we could not prove but she did have hypotension and improved after the volume depletion was replaced and with Levophed. cc: Alexis Faustin MD
== END 2017-04-27 12:18 | disposition home or self-care (01) ==
LOC: ED 09:56 → ICU 14:38 → 3S 04-22 11:15 → 3N 04-26 11:17
PROVIDERS: ADMIT Internal Medicine; ATTEND Internal Medicine

== ENCOUNTER 2018-12-23 11:18 | Inpatient (IN) ==
[2018-12-23] MEDS ORDERED: DUONEB (A & A) INH ONE (11:30)
[2018-12-23] MEDS ORDERED: SOLU-MEDROL IV ONE (11:30)
--- NOTE | 2018-12-23 12:01 | Diag Imaging Result Doc PS360 ---
EXAM: CHEST-2 VIEWS - 12/23/2018 HISTORY: sob wheeze TECHNIQUE: Chest two views COMPARISON: 04/27/2018 and 04/16/2018 FINDINGS: There is mild cardiomegaly. There is consolidation at the right middle lobe. There is ill-defined infiltrate at the right lower lobe. This is compatible with pneumonia. There is stable small granuloma from old granulomatous disease at the right upper lobe. There is a tiny right pleural effusion. There is no pneumothorax identified. IMPRESSION: Mild cardiomegaly. Right middle lobe and right lower lobe pneumonia. Tiny right pleural effusion. Electronically signed by Duglas Mclain 12/23/2018 11:59 AM
[2018-12-23] MEDS ORDERED: ROCEPHIN 1 GM in NS 50 ML IV ONE (12:03)
[2018-12-23] MEDS ORDERED: ZITHROMAX 500 MG/NS 500 MG/250 ML IVPB IV SCH (12:15)
[2018-12-23 12:45] LABS: BASO# 0.02 X1000 (0.0-0.2); BASO% 0.2 % (0.0-0.8); EOS# 0.06 X1000 (0.0-0.7); EOS% 0.5 % (0.0-10.0); HEMATOCRIT 37.1 % (37.0-47.0); HEMOGLOBIN 11.9 g/dL (12.0-16.0); IMM GRAN# 0.02 X1000 (0.0-0.04); IMM GRAN% 0.2 % (0.0-0.5); LYMPH# 1.44 X1000 (1.2-3.4); MCH 31.9 PG (27-31); MCHC 32.1 g/dL (33-37); MCV 99.5 FL (81-99); MONO% 7.5 % (1.7-9.3); MPV 10.5 FL (7.4-10.4); NEUT# 9.59 X1000 (1.4-6.5); NEUT% 79.6 % (42.2-75.2); PLT 332 X1000 (130-400); RBC 3.73 XMIL (4.2-5.4); RDW 14.3 % (11.5-14.5); WBC 12.03 X1000 (4.8-10.8)
--- NOTE | 2018-12-23 12:49 | EKG Report ---
Test Performed on : 12/23/2018 11:36:01 AM Test Reason : sob Blood Pressure : / mmHG Vent. Rate : 063 BPM Atrial Rate : 063 BPM P-R Int : 140 ms QRS Dur : 092 ms QT Int : 426 ms P-R-T Axes : 072 041 037 degrees QTc Int : 435 ms Undetermined rhythm Otherwise normal ECG When compared with ECG of 26-APR-2018 23:48, (Unconfirmed) Current undetermined rhythm precludes rhythm comparison, needs review QT has shortened Unconfirmed Result
[2018-12-23 13:02] LABS: INFLUENZA A NEGATIVE (NEGATIVE); INFLUENZA B NEGATIVE (NEGATIVE)
[2018-12-23 13:04] LABS: AGAP 11; ALBUMIN 3.8 g/dL (3.5-5.0); ALKALINE PHOSPHATASE 64 U/L (32-104); BUN 7 mg/dL (8-22); CALCIUM 9.5 mg/dL (8.8-10.2); CHLORIDE 110 mmol/L (98-107); COSMO 289; CREATININE 0.7 mg/dL (0.5-0.9); ESTIMATED GFR > 60; GLUCOSE 109 mg/dL (70-104); GOT 13 U/L (10-30); GPT 11 U/L (10-36); POTASSIUM 3.8 mmol/L (3.5-5.1); SODIUM 146 mmol/L (136-145); TCO2 26 mmol/L (25-35); TOTAL PROTEIN 6.5 g/dL (6.3-8.3)
--- NOTE | 2018-12-23 13:16 | PROVIDER DOCUMENTATION ---
This chart was entered by Kimberley Gonzalez Scribe, acting as scribe for Car Duran CRNP. HPI-Respiratory General - General Chief Complaint: Cough Stated Complaint: SOB Time Seen by Provider: 12/23/18 11:22 Source: patient Allergies/Adverse Reactions: Patient Allergies Allergy/AdvReac Type Severity Reaction Status Date / Time No Known Allergies Allergy Verified 04/26/18 23:47 Home Medications: Home Medication List Medication Instructions Recorded Confirmed Last Taken Type Nebulizer [Aeroneb Go Nebulizer] 1 each MC DAILY PRN PRN #1 each 03/24/1702/03/18 Rx Apixaban [Eliquis] 5 mg PO BID tablet 04/27/17 04/26/18 04/11/18 10:00 Rx Albuterol Sulfate [Albuterol 8.5 gm IH DIRECTED PRN PRN 02/03/18 04/26/18 History Sulfate Hfa] Albuterol 2.5MG/Ipratrop 0.5MG 3 ml INH RTQ6H neb 02/04/18 04/26/18 Unknown Rx [Duoneb (A & A)] Aspirin EC 81 mg PO DAILY tablet 02/04/18 04/26/18 04/11/18 10:00 Rx Carvedilol [Coreg] 12.5 mg PO BID tablet 02/04/18 04/26/18 04/11/18 10:00 Rx Furosemide [Lasix] 20 mg PO DAILY PRN PRN tablet 02/04/18 04/26/18 04/11/18 10: 00 Rx LISINOpril [Prinivil] 10 mg PO DAILY tablet 02/04/18 04/26/18 04/11/18 10:00 Rx Trazodone [Desyrel] 50 mg PO QHS 04/27/18 04/27/18 Unknown History Clonazepam [Klonopin] 1 mg PO TID PRN #30 tab 04/28/18 Unknown Rx Hydrocodone/APAP 10 mg/325 mg 10 mg PO TID #30 tab 04/28/18 Unknown Rx [[place]-10] - History of Present Illness-Resp Nature of Presenting Problem: 68 yof presents to ED by EMS c/o of SOB, cough for the last week. Pt has access to breathing treatments at home but states being slack on them lately. Pt received breathing treatment in EMS and states it helped. Pt has hx of COPD and is a smoker. Pt states having trouble sleeping due to wheezing and has to sleep on 5 pillows to relieve SOB. Review of Systems - Adult - REVIEW OF SYSTEMS - ADULT Constitutional: denies: chills, fever Eyes: reports: no symptoms reported Ears, Nose, Mouth & Throat: reports: no symptoms reported Cardiovascular: reports: no symptoms reported Respiratory: reports: see HPI, chronic cough, shortness of breath, wheezing Gastrointestinal: reports: no symptoms reported Genitourinary: reports: no symptoms reported Musculoskeletal: reports: no symptoms reported Integumentary: reports: no symptoms reported Neurological: reports: no symptoms reported Psychiatric: reports: no symptoms reported Endocrine: reports: no symptoms reported Hematologic/Lymphatic: reports: no symptoms reported Allergic/Immunologic: reports: no symptoms reported All Other Systems: Reviewed and Negative Past History - Adult - PAST MEDICAL HISTORY-ADULT Review of Records: reports: Nursing Assessment Review, Medications Reviewed Major Childhood Illnesses: reports: denies history Cardiovascular: reports: cardiac disease, blood clots, HTN, other (stents put in ) Respiratory: reports: asthma, COPD Gastrointestinal: reports: denies history Obstetrical/Gynecological: reports: denies history Genitourinary: reports: denies history Musculoskeletal: reports: chronic pain, intervertebral disc disease Neurological: reports: denies history Psychiatric: reports: depression Endocrine/Immune: reports: denies history Other Conditions: reports: denies history - PRIOR SURGERIES/PROCEDURES Surgical/Procedure History: reports: cardiac stent (cardiac stents x2), C- section - IMMUNIZATION STATUS Childhood Immunizations: See Nurse Assessment Flu Vaccine: See Nurse Assessment - FAMILY HISTORY Family History: reviewed, not pertinent - SOCIAL HISTORY Smoking: cigarettes Provider spent 3-5 mins advising pt. on dangers of tobacco.: Discussed manners to quit use, and f/u contacts for add'l counseling. Physical Exam-General - PHYSICAL EXAM-ADULT Initial Vital Signs Reviewed: Yes - CONSTITUTIONAL General Appearance: alert, mild distress - EYES Eyes: PERRL/EOMI, pink conjunctivae - HEAD, EARS, NOSE, MOUTH & THROAT HENMT: normocephalic/atraumatic, moist mucous membranes, normal ENT inspection - RESPIRATORY Respiratory: chest non-tender, no pleuratic chest pain, accessory muscle use, wheezing, increased rate. negative: retractions - CARDIOVASCULAR Cardiovascular: normal peripheral pulses, regular rate, rhythm - GASTROINTESTINAL (ABDOMEN) Abdominal Exam: normal bowel sounds, non tender, soft - LYMPHATIC Lymphatic: no adenopathy - MUSCULOSKELETAL Extremity: normal range of motion, no pedal edema, no calf tenderness - SKIN Integumentary: normal color, normal turgor, warm/dry - NEUROLOGIC Neurologic: grossly normal - PSYCHIATRIC Psych/Mental Status: normal mood/affect, normal thought content, normal thought process, oriented x 3 Progress - PLAN OF CARE/RESULTS Progress/Plan/Lab Results: Vital Signs - 8 hr 12/23/18 11:18 12/23/18 12:43 Temperature 98.2 F Pulse Rate 66 61 Respiratory Rate 18 20 Blood Pressure 211/98 O2 Sat by Pulse Oximetry 96 93 L Laboratory Results - last 24 hr 12/23/18 12/23/18 12/23/18 12:16 12:28 12:28 WBC 12.03 H RBC 3.73 L Hgb 11.9 L Hct 37.1 MCV 99.5 H MCH 31.9 H MCHC 32.1 L RDW Std Deviation 14.3 Plt Count 332 MPV 10.5 H Immature Gran % (Auto) 0.2 Neut % (Auto) 79.6 H Lymph % (Auto) 12.0 L Benzie % (Auto) 7.5 Eos % (Auto) 0.5 Baso % (Auto) 0.2 Immature Gran # (Auto) 0.02 Neut # (Auto) 9.59 H Lymph # (Auto) 1.44 Benzie # (Auto) 0.90 H Eos # (Auto) 0.06 Baso # (Auto) 0.02 Sodium 146 H Potassium 3.8 Chloride 110 H Carbon Dioxide 26 Anion Gap 11 BUN 7 L Creatinine 0.7 Estimated GFR/1.73 m2 > 60 BUN/Creatinine Ratio 10 Glucose 109 H Calculated Osmolality 289 Calcium 9.5 Total Bilirubin 0.20 AST 13 ALT 11 Alkaline Phosphatase 64 Troponin T Total Protein 6.5 Albumin 3.8 Globulin 3.0 Albumin/Globulin Ratio 1.0 Plasma Lactate Influenza A (Rapid) NEGATIVE Influenza B (Rapid) NEGATIVE 12/23/18 12/23/18 12:28 12:28 WBC RBC Hgb Hct MCV MCH MCHC RDW Std Deviation Plt Count MPV Immature Gran % (Auto) Neut % (Auto) Lymph % (Auto) Benzie % (Auto) Eos % (Auto) Baso % (Auto) Immature Gran # (Auto) Neut # (Auto) Lymph # (Auto) Benzie # (Auto) Eos # (Auto) Baso # (Auto) Sodium Potassium Chloride Carbon Dioxide Anion Gap BUN Creatinine Estimated GFR/1.73 m2 BUN/Creatinine Ratio Glucose Calculated Osmolality Calcium Total Bilirubin AST ALT Alkaline Phosphatase Troponin T < 0.010 Total Protein Albumin Globulin Albumin/Globulin Ratio Plasma Lactate 1.1 Influenza A (Rapid) Influenza B (Rapid) Orders Category Date Time Status CHEST-2 VIEWS [RAD] Stat Exams 12/23/18 11:30 Completed BLOOD CULTURE [BLDCUL] Stat Lab 12/23/18 12:13 Ordered CBC WITH DIFF [HEME] Stat Lab 12/23/18 12:28 Completed COMPREHENSIVE METABOLIC PANEL [CHEM] Stat Lab 12/23/18 12:[address] Stat Lab 12/23/18 12:16 Completed LACTATE, PLASMA [CHEM] Stat Lab 12/23/18 12:28 Completed PRO B-NATRIURETIC PEPTIDE Stat Lab 12/23/18 12:28 Received TROPONIN T Stat Lab 12/23/18 12:28 Completed Albuterol 2.5MG/Ipratrop 0.5MG [Duoneb (A & A)] Med 12/23/18 11:30 Discontinued 9 ml INH NOW ONE Azithromycin 500 mg/Ns [Zithromax 500 mg/Ns] Med 12/23/18 12:15 Active 500 mg in 250 ml IV Q24H CefTRIAXONE [Rocephin] 1 gm Med 12/23/18 12:03 Discontinued 0.9% Sodium Chloride Inj [Ns] 50 ml IV NOW Methylprednisolone Sod Succ [Solu-Medrol] Med 12/23/18 11:30 Discontinued 125 mg IV NOW ONE Aerosol Treatments Routine Oth 12/23/18 11:31 Completed Aerosol Treatments Stat Oth 12/23/18 11:31 Completed EKG [EKG] Stat Ther 12/23/18 11:31 Draft Result Diagrams: 12/23/18 12:28 12/23/18 12:28 - REASSESSMENT Reassessment #1 Time Reassessed: 12:11 (pt resting. Breathing tx in progress. Updated on CXR and possible admission.) Reassessment #2 Time Reassessed: 13:13 (Wheeze still auscultated bilaterally but much improved from previous exam. Pt and family made aware of results and admission status) Status: improving - EKG 1 Time of EKG reading by physician:: 11:36 EKG Read and Signed by:: Griffin Chris EKG Interpretation (*Must complete 3 of following elements*): Normal Rate: 63 Rhythm: undetermined QRS: normal ST Wave: normal - XRAY 1 XRAY: Bilateral XRAY Study: Chest Impression: Abnormal (There is mild cardiomegaly. There is consolidation at the right middle lobe. There is ill-defined infiltrate at the right lower lobe. This is compatible with pneumonia. There is stable small granuloma from old granulomatous disease at the right upper lobe. There is a tiny right pleural effusion. There is no pneumothorax identified. IMPRESSION: Mild cardiomegaly. Right middle lobe and right lower lobe pneumonia. Tiny right pleural effusion. Electronically signed by Duglas Mclain 12/23/2018 11:59 AM) - CONSULTS/PCP/HOSPITALIST Notification #1 *Consult/PCP/Hospitalist*: Dr. Goldberg Time Discussed: 01:10 (possible admission for PNA) Consult Disposition: Admit Departure - Departure Date of Disposition Decision: 12/23/18 Time of Disposition Decision: 13:14 DIAGNOSIS: Tobacco abuse Pneumonia Qualifiers: Pneumonia type: due to unspecified organism Laterality: right Lung location: unspecified part of lung Qualified Code(s): J18.9 - Pneumonia, unspecified organism Disposition: ADMITTED INPATIENT 09 Certified Medical Emergency: Emergent Condition: Fair Additional Freetext Instructions: ED Follow Up Instructions: You have been treated by a care provider in the Emergency Department. These instructions are being provided to you so you can have an understanding of how to care for yourself upon discharge. Upon discharge from the Emergency Department, you are responsible for making arrangements for follow-up care by a physician of your choice. Take all prescribed medications as directed. Return to the Emergency Department immediately for any new or worsening symptoms. You may call the Physician Referral phone number at [phone] to obtain a list of Physicians who are taking new patients. Referrals and Follow-Ups: Alexis Faustin MD [Primary Care Provider] - Discharge Education: Tobacco Use Disorder - Critical Care Note This patient required my direct & personal management of CC.: No Attestation - Physician/ KRYSTAL Attestation Patient care was provided by Advanced Practice Provider:: Yes Advanced Practice Provider:: Car Duran Advanced Practice Provider documentation review:: The Mid-level provider documentation, treatment plan and medical decision making was reviewed by the physician who agrees with all treatment and medical decision making by the MLP. The physician spent face to face time with patient:: No Advanced Practice Provider documentation review:: Supervising physician onsite and consulted in the evaluation and care of this patient. The physician did not have a face to face encounter with the patient. This chart was documented by the indicated scribe, (Kimberley Gonzalez Scribe) and accurately reflects the services I performed and decisions made by me, Car Duran, GENESIS, as attested by the provider's signature.
[2018-12-23] MEDS ORDERED: SOLU-MEDROL ONE (13:37)
[2018-12-23] MEDS ORDERED: CATAPRES PO ONE (13:37)
[2018-12-23] MEDS ORDERED: NORCO-5 PO ONE (14:00)
[2018-12-23] MEDS ORDERED: NICODERM PATCH TD ONE (14:13)
[2018-12-23] MEDS ORDERED: ZOFRAN IV PRN (15:21)
[2018-12-23] MEDS ORDERED: DUONEB (A & A) INH PRN (15:24)
[2018-12-23] MEDS: DUONEB (A & A) INH SCH ×3 (15:30→22:34)
[2018-12-23] MEDS ORDERED: ROCEPHIN ONE (15:38)
[2018-12-23] MEDS ORDERED: NS 50 ML ONE (15:39)
[2018-12-23] MEDS: NS 1,000 ML IV SCH (16:07)
[2018-12-23] MEDS: ELIQUIS PO SCH (21:14)
[2018-12-23] MEDS: SOLU-MEDROL IV SCH (21:15)
[2018-12-23] MEDS: NORCO-10 PO SCH (21:54)
--- NOTE | 2018-12-23 23:40 | HISTORY AND PHYSICAL ---
CHIEF COMPLAINT: Shortness of breath. HISTORY OF PRESENT ILLNESS: This is a 68-year-old woman with a history of COPD who presented to the emergency room via EMS for a cough. She states this has been present for about a week and has progressed to 5 pillow orthopnea over the last 2 days. She states she has had access to breathing treatments at home but has been slack on them lately. She was found to be in a COPD exacerbation with a right middle lobe and right lower lobe pneumonia. PAST MEDICAL HISTORY: COPD, asthma, hypertension, chronic kidney disease, depression. PAST SURGICAL HISTORY: , cardiac stents. SOCIAL HISTORY: She smokes about a half a pack a day. She denies alcohol or illicit drug use. ALLERGIES: No known drug allergies. HOME MEDICATIONS: A list will be obtained by the nursing staff and once reviewed we will reorder as appropriate. REVIEW OF SYSTEMS: Discussed with the patient with pertinent positives stated in the HPI. She denied any syncope, dizziness, chest pain, palpitations, any nausea, vomiting, diarrhea, constipation, black or bloody vomitus or stools, hematuria, dysuria, frequency, urgency. PHYSICAL EXAMINATION: GENERAL: This is a 68-year-old female who is sitting up in the bed in no distress. VITAL SIGNS: Blood pressure is 144/68 with a heart rate of 62, respirations are 18, temperature 98.2 with O2 saturation 93 to 96% on 3 L nasal cannula. HEENT: Pupils are equal, round, react to light. EOMs are intact. Sclerae are anicteric. Head is normocephalic, atraumatic. Mucous membranes are moist. NECK: Supple. Trachea midline. CARDIOVASCULAR: Regular rate and rhythm. S1 and S2 appreciated. PULMONARY: She has wheezes scattered throughout. Chest rises and falls symmetric with respiration. Chest wall is nontender to palpation. GASTROINTESTINAL: Soft, nontender, nondistended. Bowel sounds in all 4 quadrants. NEUROLOGIC: She is alert, oriented x3. LABS: WBC is 12, hemoglobin 11.9, hematocrit 37.1 and platelets of 332,000. Sodium 146, potassium 3.8, BUN 7, creatinine 0.7 with a glucose of 109. Influenza A and B are negative. Blood cultures are pending. Chest x-ray revealed right middle and right lower lobe pneumonia. ASSESSMENT AND PLAN: 1. Right middle and right lower lobe pneumonia. Blood cultures have been obtained. The patient was given Rocephin in the emergency room. We will continue Rocephin and add azithromycin. 2. Chronic obstructive pulmonary disease exacerbation. Will give DuoNeb q.4 hours and q.2 hours p.r.n., steroids to taper. Will give supplemental oxygen. We will start incentive spirometer. 3. History of deep vein thrombosis. We will continue her Eliquis. 4. Coronary artery disease status post percutaneous coronary intervention. We will identify her home medications and continue as appropriate and she will be placed on telemetry. 5. Chronic kidney disease. We will trend labs, renal dose medications as is appropriate. 6. Hypertension. 7. Continued tobacco use. We will give a nicotine patch. Further treatments pending hospital course. Dictated by GENESIS Galan for Jai Goldberg MD This chart was documented by, GENESIS Galan and accurately reflects the services performed, treatment plan and medical decisions as attested by the providers signature Jai Goldberg MD. cc: GENESIS Galan MD
--- NOTE | 2018-12-24 02:46 | HISTORY AND PHYSICAL ---
ADDENDUM: Patient seen and examined by myself. Full note dictated and discussed with nurse practitioner. Patient presented to the hospital with increased cough, congestion. Subsequently diagnosed with pneumonia. We will admit her to the hospital, place her on antibiotics and we will follow. Please see full dictation. cc: Jai Goldberg MD
[2018-12-24] MEDS: DUONEB (A & A) INH SCH ×6 (02:54→23:02)
[2018-12-24] MEDS: SOLU-MEDROL IV SCH ×3 (05:09→21:56)
[2018-12-24 06:00] LABS: HEMATOCRIT 32.9 % (37.0-47.0); HEMOGLOBIN 10.4 g/dL (12.0-16.0); MCH 31.1 PG (27-31); MCHC 31.6 g/dL (33-37); MCV 98.5 FL (81-99); MPV 10.7 FL (7.4-10.4); RBC 3.34 XMIL (4.2-5.4); RDW 14.2 % (11.5-14.5); WBC 12.45 X1000 (4.8-10.8)
[2018-12-24 06:25] LABS: AGAP 13; ALBUMIN 3.4 g/dL (3.5-5.0); ALKALINE PHOSPHATASE 56 U/L (32-104); BUN 12 mg/dL (8-22); CALCIUM 8.7 mg/dL (8.8-10.2); CHLORIDE 108 mmol/L (98-107); COSMO 288; CREATININE 0.8 mg/dL (0.5-0.9); ESTIMATED GFR > 60; GLUCOSE 183 mg/dL (70-104); GOT 12 U/L (10-30); GPT 9 U/L (10-36); POTASSIUM 3.6 mmol/L (3.5-5.1); SODIUM 142 mmol/L (136-145); TCO2 22 mmol/L (25-35)
[2018-12-24] MEDS: NS 1,000 ML IV SCH (06:41)
[2018-12-24] MEDS ORDERED: ZITHROMAX 500 MG/NS 500 MG/250 ML IVPB IV SCH (08:21)
[2018-12-24] MEDS ORDERED: LASIX PO PRN (08:21)
[2018-12-24] MEDS ORDERED: ELIQUIS PO SCH (09:00)
[2018-12-24] MEDS ORDERED: NORCO-10 PO SCH (09:00)
[2018-12-24] MEDS: PRINIVIL PO SCH (09:22)
[2018-12-24] MEDS: ASPIRIN EC PO SCH (09:22)
[2018-12-24] MEDS: NORCO-10 PO SCH ×3 (09:22→20:54)
[2018-12-24] MEDS: ELIQUIS PO SCH ×2 (09:22→20:54)
[2018-12-24] MEDS: COREG PO SCH ×2 (09:23→20:54)
[2018-12-24] MEDS: LOTRISONE CREAM TOP SCH ×2 (11:43→20:54)
[2018-12-24] MEDS: NICODERM PATCH TD SCH (12:06)
[2018-12-24] MEDS: KLONOPIN PO PRN ×3 (12:06→20:54)
[2018-12-24] MEDS: ZITHROMAX PO SCH (15:13)
[2018-12-24] MEDS: ROCEPHIN 1 GM in NS 50 ML IV SCH (15:14)
[2018-12-24] MEDS: DESYREL PO PRN (20:54)
--- NOTE | 2018-12-25 00:51 | PROGRESS NOTE ---
DATE: 12/24/2018 SUBJECTIVE: Patient notes she is still having lots of cough and congestion, lots of shortness of breath. Does not feel back to her baseline at all. Still short of breath with any activity. PHYSICAL EXAMINATION: Vital Signs: Temperature 98 degrees, pulse 84, respiratory 20, BP 167/85. General: Patient is awake, alert, currently in mild to moderate respiratory distress. HEENT: Normocephalic. Neck: Supple. Cardiovascular: Regular rate. Chest: Decreased breath sounds bilaterally but equal. Positive wheezing. No current crackles. Abdomen: Soft. Extremities: Moves all extremities. ASSESSMENT: 1. Right middle lobe and right lower lobe pneumonia. 2. Chronic obstructive pulmonary disease with exacerbation. 3. Obesity. 4. Chronic kidney disease. 5. Chronic tobacco abuse. 6. Hypertension. PLAN: Continue patient in the hospital, continue Rocephin and azithromycin. Continue Solu- Medrol, IV fluids, and oxygen. Further orders as needed. cc: Jai Goldberg MD
[2018-12-25] MEDS: DUONEB (A & A) INH SCH ×6 (02:46→23:11)
[2018-12-25] MEDS: SOLU-MEDROL IV SCH ×4 (05:19→20:57)
[2018-12-25] MEDS: KLONOPIN PO PRN ×4 (05:32→20:58)
[2018-12-25 05:46] LABS: HEMATOCRIT 32.4 % (37.0-47.0); HEMOGLOBIN 10.4 g/dL (12.0-16.0); MCH 31.7 PG (27-31); MCHC 32.1 g/dL (33-37); MCV 98.8 FL (81-99); MPV 10.8 FL (7.4-10.4); RBC 3.28 XMIL (4.2-5.4); RDW 14.5 % (11.5-14.5); WBC 14.3 X1000 (4.8-10.8)
[2018-12-25 06:31] LABS: AGAP 11; BUN 21 mg/dL (8-22); CALCIUM 8.6 mg/dL (8.8-10.2); CHLORIDE 106 mmol/L (98-107); COSMO 289; CREATININE 0.8 mg/dL (0.5-0.9); ESTIMATED GFR > 60; GLUCOSE 153 mg/dL (70-104); POTASSIUM 3.8 mmol/L (3.5-5.1); SODIUM 142 mmol/L (136-145); TCO2 25 mmol/L (25-35)
[2018-12-25] MEDS: ELIQUIS PO SCH ×2 (09:00→20:58)
[2018-12-25] MEDS: COREG PO SCH ×2 (09:00→20:58)
[2018-12-25] MEDS: NICODERM PATCH TD SCH (09:00)
[2018-12-25] MEDS: ASPIRIN EC PO SCH (09:00)
[2018-12-25] MEDS: PRINIVIL PO SCH (09:00)
[2018-12-25] MEDS: NORCO-10 PO SCH ×3 (09:00→20:57)
[2018-12-25] MEDS ORDERED: IMODIUM PO PRN (10:16)
[2018-12-25] MEDS: ZITHROMAX PO SCH (12:30)
[2018-12-25] MEDS: LOTRISONE CREAM TOP SCH ×2 (13:44→23:20)
[2018-12-25] MEDS: ROCEPHIN 1 GM in NS 50 ML IV SCH (16:05)
[2018-12-25] MEDS: NS 1,000 ML IV SCH (16:15)
--- NOTE | 2018-12-25 19:38 | PROGRESS NOTE ---
DATE: 12/25/2018 SUBJECTIVE: Patient notes that she may be feeling a little bit better today. She is having less cough, congestion. Less shortness of breath. OBJECTIVE: Vital Signs: Reviewed and stable. She is afebrile. Temperature 97.9, pulse 64, respiratory rate 20, BP 152/69. General: Patient is in no current respiratory distress. HEENT: Normocephalic, atraumatic. Neck: Supple. Cardiovascular: Regular rate. No murmurs. Chest clear, nonlabored. Abdomen: Soft, nondistended. Extremities: Moves all extremities. Neurologic: No changes. ASSESSMENT: 1. Nausea and vomiting. 2. COPD, with exacerbation. 3. Right middle and right lower lobe pneumonia. 4. Chronic kidney disease. 5. Hypertension. 6. Chronic tobacco abuse. PLAN: Overall, patient has improved. We will attempt to wean her Solu-Medrol, continue antibiotics. Continue to follow. Further orders as needed. cc: Jai Goldberg MD
[2018-12-25] MEDS: DESYREL PO PRN (20:57)
[2018-12-26] MEDS: KLONOPIN PO PRN ×3 (02:25→21:34)
[2018-12-26] MEDS: SOLU-MEDROL IV SCH ×3 (03:18→14:02)
[2018-12-26] MEDS: DUONEB (A & A) INH SCH ×6 (03:51→23:14)
[2018-12-26] MEDS: NS 1,000 ML IV SCH ×2 (05:58→08:13)
[2018-12-26] MEDS: ELIQUIS PO SCH ×2 (08:14→21:34)
[2018-12-26] MEDS: COREG PO SCH ×2 (08:14→21:34)
[2018-12-26] MEDS: PRINIVIL PO SCH (08:14)
[2018-12-26] MEDS: ASPIRIN EC PO SCH (08:14)
[2018-12-26] MEDS: NORCO-10 PO SCH ×3 (08:14→21:34)
[2018-12-26] MEDS: NICODERM PATCH TD SCH (08:14)
[2018-12-26] MEDS: ZITHROMAX PO SCH (14:02)
[2018-12-26] MEDS: LOTRISONE CREAM TOP SCH ×2 (16:59→21:35)
[2018-12-26] MEDS: ROCEPHIN 1 GM in NS 50 ML IV SCH (17:43)
--- NOTE | 2018-12-26 19:30 | PROGRESS NOTE ---
DATE: 12/26/2018 SUBJECTIVE: Patient has no focal complaints. OBJECTIVE: Vital signs: Blood pressure 150/65, heart rate of 88, respiratory rate of 16, 96% on room air. Cardiovascular: Regular rate and rhythm. Pulmonary: Bilateral breath sounds clear to auscultation. She has some rales at the bases, but no wheezing, a little bit of rhonchi. She feels she has a dry productive cough. Gastrointestinal: Soft, nontender, nondistended. Bowel sounds were positive. Extremity: No clubbing or cyanosis. Lymphatic: No peripheral edema. LABORATORY DATA: White count is 14, hemoglobin 10, hematocrit 32, platelets 303,000. Basic was normal with creatinine of 0.8. PROBLEM LIST: 1. Chronic obstructive pulmonary disease, acute chronic obstructive pulmonary disease exacerbation. We will continue nebulizer treatments. We will wean her steroids and follow. 2. Right middle and lower lobe pneumonia. We will continue empiric antibiotics. She is on oral azithromycin and Rocephin. We will continue empiric antibiotics and follow, and we will work on expectoration. DISPOSITION: She may be here another day or 2. We will see how she does. cc: Tab Ren MD
[2018-12-26] MEDS: MUCOMYST 20% INH SCH (19:47)
[2018-12-26] MEDS: MUCINEX PO SCH (21:34)
[2018-12-26] MEDS: DESYREL PO PRN (21:34)
[2018-12-27] MEDS: SOLU-MEDROL IV SCH ×2 (01:07→13:21)
[2018-12-27] MEDS: DUONEB (A & A) INH SCH ×6 (03:34→23:02)
[2018-12-27] MEDS: KLONOPIN PO PRN ×3 (05:27→21:08)
[2018-12-27] MEDS ORDERED: LOVENOX SUBQ SCH (06:00)
[2018-12-27 06:27] LABS: HEMATOCRIT 32.8 % (37.0-47.0); HEMOGLOBIN 10.3 g/dL (12.0-16.0); IMM GRAN# 0.03 X1000 (0.0-0.04); IMM GRAN% 0.3 % (0.0-0.5); LYMPH% 10.8 % (20.5-51.1); MCH 30.8 PG (27-31); MCHC 31.4 g/dL (33-37); MCV 98.2 FL (81-99); MONO# 0.52 X1000 (0.11-0.59); MONO% 5.6 % (1.7-9.3); MPV 10.6 FL (7.4-10.4); NEUT# 7.69 X1000 (1.4-6.5); NEUT% 83.3 % (42.2-75.2); PLT 356 X1000 (130-400); RBC 3.34 XMIL (4.2-5.4); RDW 14.1 % (11.5-14.5); WBC 9.24 X1000 (4.8-10.8)
[2018-12-27 06:38] LABS: AGAP 10; BUN 27 mg/dL (8-22); CALCIUM 8.3 mg/dL (8.8-10.2); CHLORIDE 109 mmol/L (98-107); COSMO 293; CREATININE 0.8 mg/dL (0.5-0.9); ESTIMATED GFR > 60; GLUCOSE 150 mg/dL (70-104); SODIUM 143 mmol/L (136-145); TCO2 24 mmol/L (25-35)
[2018-12-27] MEDS: MUCOMYST 20% INH SCH ×2 (08:24→19:24)
[2018-12-27] MEDS: NORCO-10 PO SCH ×3 (10:35→21:09)
[2018-12-27] MEDS: ELIQUIS PO SCH ×2 (10:35→21:09)
[2018-12-27] MEDS: ASPIRIN EC PO SCH (10:35)
[2018-12-27] MEDS: MUCINEX PO SCH ×2 (10:35→21:08)
[2018-12-27] MEDS: NICODERM PATCH TD SCH (10:36)
[2018-12-27] MEDS: COREG PO SCH ×2 (10:38→21:08)
[2018-12-27] MEDS: LOTRISONE CREAM TOP SCH ×2 (10:40→21:09)
[2018-12-27] MEDS: ZITHROMAX PO SCH (13:21)
[2018-12-27] MEDS: ROCEPHIN 1 GM in NS 50 ML IV SCH (16:43)
--- NOTE | 2018-12-27 20:32 | PROGRESS NOTE ---
DATE: 12/27/2018 SUBJECTIVE: She feels better today. Diarrhea has resolved. OBJECTIVE: Vital Signs: Blood pressure is 187/89, heart rate of 76, respiratory rate 18, temp was 98, 99% on 3 L. Cardiovascular: Regular rate and rhythm. Pulmonary: Bilateral breath sounds. Clear to auscultation. Gastrointestinal: Soft, nontender, nondistended. Bowel sounds are positive. Extremities: No clubbing or cyanosis. Lymphatic: No peripheral edema. Neurologic: Nonfocal. LABORATORY DATA: White count is 9, hemoglobin and hematocrit 10 and 32, platelets 356,000. Her basic looked okay. PROBLEM LIST: 1. COPD exacerbation, acute. Will continue treatments and follow. We will continue to wean her steroids. She is really on very low dose. 2. Right upper lobe and lower lobe pneumonia. Continue antibiotics. I will repeat her chest x- ray tomorrow and see how things look. 3. Hypertension. We will continue regular medications. DISPOSITION: I anticipate she probably can go home in the next 24 hours if she is stable. cc: Tab Ren MD
[2018-12-27] MEDS: DESYREL PO PRN (21:08)
[2018-12-28] MEDS: KLONOPIN PO PRN ×2 (00:55→04:29)
[2018-12-28] MEDS: DUONEB (A & A) INH SCH ×3 (03:53→11:16)
--- NOTE | 2018-12-28 07:38 | Diag Imaging Result Doc PS360 ---
EXAM: CHEST-2 VIEWS INDICATION: hypoxia TECHNIQUE: 2 views COMPARISON: 12/23/2018 FINDINGS: The infiltrate and small effusion at the right lung base appears stable to marginally improved. However, there has been development of a tiny left effusion with adjacent atelectasis and/or infiltrate during the interval. No other new consolidations are identified. Cardiac silhouette is stable. IMPRESSION: Minor mixed changes as described. Electronically signed by Fadi Abbasi 12/28/2018 7:35 AM
[2018-12-28] MEDS: MUCOMYST 20% INH SCH (07:41)
[2018-12-28] MEDS: NORCO-10 PO SCH ×3 (08:38→13:26)
[2018-12-28] MEDS: COREG PO SCH (08:39)
[2018-12-28] MEDS: NICODERM PATCH TD SCH (08:39)
[2018-12-28] MEDS: ASPIRIN EC PO SCH (08:39)
[2018-12-28] MEDS: MUCINEX PO SCH (08:39)
[2018-12-28] MEDS: ELIQUIS PO SCH (08:41)
[2018-12-28] MEDS ORDERED: SOLU-MEDROL IV SCH (09:00)
[2018-12-28] MEDS: LOTRISONE CREAM TOP SCH (12:12)
[2018-12-28] MEDS: ZITHROMAX PO SCH (13:26)
[2018-12-28 14:05] VITALS: BP 159/84
--- NOTE | 2018-12-28 15:17 | DISCHARGE SUMMARY ---
ADMISSION DATE: 12/23/2018 DISCHARGE DATE: 12/28/2018 ADDENDUM: 1. COPD exacerbation. The patient is doing better. 2. Right upper lobe pneumonia. She is on antibiotics and doing okay. She seems well. She anticipates discharge today. Will discharge her on Ceftin and Medrol Dosepak. I am going to switch her to losartan from lisinopril just because of her COPD and overall she seems to be doing well. Full dictation per Talisha Britt. This is a [id number] encounter note with Talisha Britt. cc: MD Alexis Sam MD
--- NOTE | 2018-12-28 21:42 | DISCHARGE SUMMARY ---
ADMISSION DATE: 12/23/2018 DISCHARGE DATE: 12/28/2018 PRIMARY CARE PHYSICIAN: Alexis Faustin MD. ADMISSION DIAGNOSES: 1. Right middle and right lower lobe pneumonia. 2. An acute chronic obstructive pulmonary disease exacerbation. 3. Coronary artery disease. 4. Chronic kidney disease. DISCHARGE DIAGNOSES: 1. Acute chronic obstructive pulmonary disease exacerbation, improved. 2. Right lower lobe pneumonia. SUMMARY OF FINDINGS: This is a 68-year-old female who presented with a week history of progressing to 5 pillow orthopnea over 2 days prior to arriving. Was having shortness of breath, had not been doing her breathing treatments as prescribed at home. Was found to have a right middle and right lower lobe pneumonia, placed her on IV antibiotics, DuoNeb q.4 routinely and q.2 p.r.n. Steroids were tapered. She has improved and it is felt that she can safely be discharged home today. DISCHARGE MEDICATIONS: DuoNeb q.6 hours and albuterol inhaler p.r.n., Eliquis 5 mg p.o. b.i.d., aspirin 81 mg p.o. daily, Coreg 12.5 mg p.o. b.i.d. A prescription for Ceftin 500 mg p.o. q.12 hours #14 with no refills. Klonopin 1 mg p.o. t.i.d. p.r.n., Lasix 20 mg daily p.r.n., [place] 10 p.o. t.i.d., losartan 25 mg p.o. daily #30 with 1 refill. Medrol Dosepak to take as directed, nebulizer p.r.n., trazodone 50 mg p.o. at bedtime. FOLLOWUP: She will need to follow up with her primary care physician in 1 to 2 weeks and call the office for an appointment. All discharge instructions have been reviewed with the patient and she verbalized understanding. TIME SPENT: A 33 minute discharge. Dictated by GENESIS Lancaster for Tab Ren MD cc: GENESIS Lancaster MD
== END 2018-12-28 15:07 | disposition home or self-care (01) | DRG 190 ==
LOC: P.ED 11:18 → SUATTDRO 16:55 → P.MEDSURG 16:55
PROVIDERS: ATTEND Internal Medicine
CPT/HCPCS: 71020; 71046; 80048; 80053; 83605; 83880; 84484; 85025; 85027; 87040; 87070; 87205; 87275; 87276; 87804; 93005; 94640; 94667; 94668; 94761; 94799; 96365; 96366; 96367; 96375; 99285; A9270; J0456; J0696; J1650; J2920; J2930; J7030

== ENCOUNTER 2019-02-18 17:07 | Inpatient (IN) ==
[2019-02-18 17:41] LABS: BASO# 0.03 X1000 (0.0-0.2); BASO% 0.3 % (0.0-0.8); EOS# 0.29 X1000 (0.0-0.7); EOS% 3.2 % (0.0-10.0); HEMATOCRIT 35.5 % (37.0-47.0); HEMOGLOBIN 11.5 g/dL (12.0-16.0); IMM GRAN# 0.01 X1000 (0.0-0.04); IMM GRAN% 0.1 % (0.0-0.5); LYMPH# 2.81 X1000 (1.2-3.4); LYMPH% 31.5 % (20.5-51.1); MCH 31.8 PG (27-31); MCHC 32.4 g/dL (33-37); MCV 98.1 FL (81-99); MONO# 0.97 X1000 (0.11-0.59); MONO% 10.9 % (1.7-9.3); MPV 10.8 FL (7.4-10.4); NEUT# 4.82 X1000 (1.4-6.5); PLT 258 X1000 (130-400); RBC 3.62 XMIL (4.2-5.4); RDW 14.1 % (11.5-14.5); WBC 8.93 X1000 (4.8-10.8)
[2019-02-18] MEDS ORDERED: XYLOCAINE-MPF 2% INJ ONE (17:42)
[2019-02-18] MEDS ORDERED: DEPO-MEDROL IM ONE (17:42)
[2019-02-18] MEDS ORDERED: XYLOCAINE-MPF 1% 5 ML ONE (17:43)
[2019-02-18 17:55] LABS: INR 1.02; PROTIME 13.9 Seconds (11.0-16.0)
[2019-02-18 18:05] LABS: AGAP 10; ALBUMIN 4.1 g/dL (3.5-5.0); ALKALINE PHOSPHATASE 60 U/L (32-104); BUN 15 mg/dL (8-22); CALCIUM 8.6 mg/dL (8.8-10.2); CHLORIDE 109 mmol/L (98-107); COSMO 285; CREATININE 0.9 mg/dL (0.5-0.9); ESTIMATED GFR > 60; GLUCOSE 90 mg/dL (70-104); GOT 12 U/L (10-30); GPT 8 U/L (10-36); MAGNESIUM 1.7 mg/dL (1.5-2.7); POTASSIUM 4.4 mmol/L (3.5-5.1); SODIUM 143 mmol/L (136-145); TCO2 24 mmol/L (25-35); TOTAL PROTEIN 6.5 g/dL (6.3-8.3)
--- NOTE | 2019-02-18 18:24 | Diag Imaging Result Doc PS360 ---
EXAM: CHEST-2 VIEWS - 02/18/2019 HISTORY: sob TECHNIQUE: Chest two views COMPARISON: 12/28/2018 FINDINGS: There is stable mild cardiomegaly. There is been interval decrease in basilar opacities. There is persistent pleural thickening or atelectasis at the anterior base of chest visible on the lateral view. There is no pneumothorax identified. IMPRESSION: Stable mild cardiomegaly. Interval decrease in basilar opacities. Persistent pleural thickening or atelectasis at anterior base of chest. Electronically signed by Duglas Mclain 02/18/2019 6:22 PM
--- NOTE | 2019-02-18 19:07 | PROVIDER DOCUMENTATION ---
This chart was entered by Lanny Griffiths Scribe, acting as scribe for Asa Millan MD. HPI-Musculoskeletal Pain/Inj - GENERAL Chief Complaint: Shortness of Breath Stated Complaint: SOB Time Seen by Provider: 02/18/19 17:13 Source: patient - HX OF PRESENT ILLNESS-MUSKULOSKELTAL Nature of Presenting Problem: f presents to the ed with c/o left ac oint pain and left arm pain. pt sts she noticed pain with rom 2 days prior and has worsened. pt +crank test of ac joint on exam. pt denies injury Quality of Pain: reports: aching Severity in ED: moderate Onset/Duration: 2 days ago Timing: still present, intermittent, getting worse Modifying Factors: improves with: immobilization. worse with: movement, palpation Any recent injury?: No Locality of Occurance: Home Similar Symptoms Previously?: No Recently seen or treated by another doctor?: No Review of Systems - Adult - REVIEW OF SYSTEMS - ADULT Constitutional: reports: no symptoms reported Eyes: reports: no symptoms reported Ears, Nose, Mouth & Throat: reports: no symptoms reported Cardiovascular: denies: chest pain, palpitations Respiratory: denies: cough, shortness of breath, wheezing Gastrointestinal: denies: abdominal pain, diarrhea, nausea, vomiting Genitourinary: reports: no symptoms reported Musculoskeletal: reports: see HPI, joint pain (left ac joint). denies: joint swelling, neck pain Integumentary: reports: no symptoms reported Neurological: denies: dizziness/vertigo, headache/migraines Psychiatric: reports: no symptoms reported Endocrine: reports: no symptoms reported Hematologic/Lymphatic: reports: no symptoms reported Allergic/Immunologic: reports: no symptoms reported All Other Systems: Reviewed and Negative Past History - Adult - PAST MEDICAL HISTORY-ADULT Review of Records: reports: Nursing Assessment Review, Medications Reviewed Major Childhood Illnesses: reports: denies history Cardiovascular: reports: cardiac disease, blood clots, HTN, other (stents put in) Respiratory: reports: asthma, COPD Gastrointestinal: reports: GERD Obstetrical/Gynecological: reports: denies history Genitourinary: reports: denies history Musculoskeletal: reports: chronic pain, intervertebral disc disease Hand Dominance: Right Handed Neurological: reports: denies history Psychiatric: reports: depression Endocrine/Immune: reports: denies history Other Conditions: reports: denies history - PRIOR SURGERIES/PROCEDURES Surgical/Procedure History: reports: cardiac stent (cardiac stents x2), C- section - IMMUNIZATION STATUS Childhood Immunizations: See Nurse Assessment Flu Vaccine: See Nurse Assessment - FAMILY HISTORY Family History: reviewed, not pertinent - SOCIAL HISTORY Smoking: cigarettes, less than 1 pack/day Provider spent 3-5 mins advising pt. on dangers of tobacco.: Discussed manners to quit use, and f/u contacts for add'l counseling. Substance Use: denies Living Situation: family Physical Exam-Injury Related - Physical Exam-Injury Related Initial Vital Signs Reviewed: Yes General Appearance: appears well, alert, no apparent distress, obese Eyes: PERRL/EOMI, pink conjunctivae Head, Ears, Nose, Mouth & Throat: normocephalic/atraumatic, moist mucous memb ranes, TMs normal, dental decay Neck: non-tender, full range of motion, supple, normal inspection Respiratory: chest non-tender, decreased breath sounds (chronic with copd. pt sts breathing is at baseline). negative: crackles, rales, rhonchi, wheezing Cardiovascular: normal peripheral pulses, regular rate, rhythm, other (BLE edema) Chest/Breast: deferred Abdominal Exam: normal bowel sounds, non tender, soft Female Genitalia/Pelvic Exam: deferred Rectal Exam: deferred Hemoccult Exam: deferred Lymphatic: no adenopathy Back Exam: normal inspection, no CVA tenderness, no vertebral tenderness Extremity: normal gait, normal inspection, normal capillary refill, pelvis stab le, pedal edema, swelling (BLE edema), tenderness (left ac joint pain with palpation and rom) Integumentary: normal color, warm/dry Neurologic: grossly normal, no motor/sensory deficits Psych/Mental Status: normal mood/affect, normal thought content, normal thought process, oriented x 3 - Glascow Coma Score Best Eye Response (Иван): (4) open spontaneously Best Verbal Response (Иван): (5) oriented Best Motor Response ([place]): (6) obeys commands Иван Total: 15 Progress - PLAN OF CARE/RESULTS Progress/Plan/Lab Results: Vital Signs - 8 hr 02/18/19 17:10 02/18/19 18:36 Temperature 98 F Pulse Rate 65 58 L Respiratory Rate 18 15 Blood Pressure 177/89 106/74 O2 Sat by Pulse Oximetry 96 96 Laboratory Results - last 24 hr 02/18/19 02/18/19 02/18/19 17:28 17:28 17:28 WBC 8.93 RBC 3.62 L Hgb 11.5 L Hct 35.5 L MCV 98.1 MCH 31.8 H MCHC 32.4 L RDW Std Deviation 14.1 Plt Count 258 MPV 10.8 H Immature Gran % (Auto) 0.1 Neut % (Auto) 54.0 Lymph % (Auto) 31.5 [place] % (Auto) 10.9 H Eos % (Auto) 3.2 Baso % (Auto) 0.3 Immature Gran # (Auto) 0.01 Neut # (Auto) 4.82 Lymph # (Auto) 2.81 [place] # (Auto) 0.97 H Eos # (Auto) 0.29 Baso # (Auto) 0.03 PT INR D-Dimer, Quantitative Sodium Potassium Chloride Carbon Dioxide Anion Gap BUN Creatinine Estimated GFR/1.73 m2 BUN/Creatinine Ratio Glucose Calculated Osmolality Calcium Magnesium Total Bilirubin AST ALT Alkaline Phosphatase Creatine Kinase 36 Troponin T < 0.010 [id number]-C-Ipjuzzwkfky Pept Total Protein Albumin Globulin Albumin/Globulin Ratio 02/18/19 02/18/19 02/18/19 17:28 17:28 17:28 WBC RBC Hgb Hct MCV MCH MCHC RDW Std Deviation Plt Count MPV Immature Gran % (Auto) Neut % (Auto) Lymph % (Auto) [place] % (Auto) Eos % (Auto) Baso % (Auto) Immature Gran # (Auto) Neut # (Auto) Lymph # (Auto) [place] # (Auto) Eos # (Auto) Baso # (Auto) PT INR D-Dimer, Quantitative 0.28 Sodium 143 Potassium 4.4 Chloride 109 H Carbon Dioxide 24 L Anion Gap 10 BUN 15 Creatinine 0.9 Estimated GFR/1.73 m2 > 60 BUN/Creatinine Ratio 17 Glucose 90 Calculated Osmolality 285 Calcium 8.6 L Magnesium 1.7 Total Bilirubin 0.20 AST 12 ALT 8 L Alkaline Phosphatase 60 Creatine Kinase Troponin T Cti-[id number]-Bojxzamrefb Pept 1236 H Total Protein 6.5 Albumin 4.1 Globulin 2.0 Albumin/Globulin Ratio 2.0 02/18/19 17:28 WBC RBC Hgb Hct MCV MCH MCHC RDW Std Deviation Plt Count MPV Immature Gran % (Auto) Neut % (Auto) Lymph % (Auto) [place] % (Auto) Eos % (Auto) Baso % (Auto) Immature Gran # (Auto) Neut # (Auto) Lymph # (Auto) [place] # (Auto) Eos # (Auto) Baso # (Auto) PT 13.9 INR 1.02 D-Dimer, Quantitative Sodium Potassium Chloride Carbon Dioxide Anion Gap BUN Creatinine Estimated GFR/1.73 m2 BUN/Creatinine Ratio Glucose Calculated Osmolality Calcium Magnesium Total Bilirubin AST ALT Alkaline Phosphatase Creatine Kinase Troponin T Oqm-[id number]-Xrdnutgixsa Pept Total Protein Albumin Globulin Albumin/Globulin Ratio Orders Category Date Time Status Cardiac Monitoring DIRECTED Care 02/18/19 17:17 Active Nursing- Obtain EKG ONCE Care 02/18/19 17:17 Active CHEST-2 VIEWS [RAD] Stat Exams 02/18/19 17:17 Completed CBC WITH DIFF [HEME] Stat Lab 02/18/19 17:28 Completed CK PROFILE [SP CHEM] Stat Lab 02/18/19 17:28 Completed COMPREHENSIVE METABOLIC PANEL [CHEM] Stat Lab 02/18/19 17:28 Completed D-DIMER [COAG] Stat Lab 02/18/19 17:28 Completed MAGNESIUM [CHEM] Stat Lab 02/18/19 17:28 Completed PRO B-NATRIURETIC PEPTIDE Stat Lab 02/18/19 17:28 Completed PROTIME WITH INR [COAG] Stat Lab 02/18/19 17:28 Completed TROPONIN T Stat Lab 02/18/19 17:28 Completed Lidocaine 1% Pf [Xylocaine-Mpf 1%] 5 ml Med 02/18/19 17:43 Discontinued .ROUTE As directed Lidocaine 2% Pf [Xylocaine-Mpf 2%] Med 02/18/19 17:42 Discontinued 5 ml INJ NOW ONE Methylprednisolone Acetate [Depo-Medrol] Med 02/18/19 17:42 Discontinued 40 mg IM NOW ONE EKG [EKG] Stat Ther 02/18/19 17:17 Ordered Result Diagrams: 02/18/19 17:28 02/18/19 17:28 - EKG 1 Time of EKG reading by physician:: 17:32 EKG Read and Signed by:: Asa Millan EKG Interpretation (*Must complete 3 of following elements*): Normal Rate: 59 Rhythm: sinus bradycardia with pac [place]: normal QRS: normal IA Interval: normal ST Wave: normal Procedures - ADDITIONAL PROCEDURES Additional Procedure: Injection of Bursa/Joint (injection of left AC joint due to pain with palpation and rom) Departure - Departure Date of Disposition Decision: 02/18/19 Time of Disposition Decision: 19:05 DIAGNOSIS: Tobacco use disorder, Chronic CHF AC joint pain Qualifiers: Laterality: left Qualified Code(s): M25.512 - Pain in left shoulder Disposition: HOME 01 Certified Medical Emergency: Emergent Condition: Stable Referrals and Follow-Ups: Alexis Faustin MD [Primary Care Provider] - - Critical Care Note This patient required my direct & personal management of CC.: No Attestation - Physician/ KRYSTAL Attestation Patient care was provided by Advanced Practice Provider:: No The physician spent face to face time with patient:: Yes Advanced Practice Provider documentation review:: Supervising physician onsite and consulted in the evaluation and care of this patient. The physician did have a face to face encounter with the patient. This chart was documented by the indicated scribe, (Lanny Griffiths Scribe) and accurately reflects the services I performed and decisions made by me, Asa Millan MD, as attested by the provider's signature.
[2019-02-18] MEDS ORDERED: MORPHINE IV ONE (19:54)
[2019-02-18] MEDS ORDERED: ZOFRAN IV ONE (19:54)
[2019-02-18] MEDS ORDERED: NICODERM PATCH TD ONE (20:26)
[2019-02-18] MEDS ORDERED: DUONEB (A & A) INH ONE (20:26)
[2019-02-18] MEDS: MORPHINE IV PRN (22:38)
[2019-02-18] MEDS: ZOFRAN IV PRN (22:39)
[2019-02-19] MEDS: MORPHINE IV PRN ×4 (00:50→23:30)
[2019-02-19] MEDS: ZOFRAN IV PRN ×3 (03:43→23:30)
[2019-02-19 05:12] LABS: BILIRUBIN URINE NEGATIVE (NEGATIVE); BLOOD URINE NEGATIVE (NEGATIVE); CLARITY CLEAR (CLEAR); COLOR YELLOW; GLUCOSE URINE NEGATIVE (NEGATIVE); KETONE URINE NEGATIVE (NEGATIVE); LEUKOCYTES URINE NEGATIVE (NEGATIVE); NITRITE URINE NEGATIVE (NEGATIVE); PROTEIN URINE NEGATIVE (NEGATIVE); SP GRAVITY URINE 1.015; UROBILINOGEN URINE NORMAL
[2019-02-19 05:13] LABS: URINE SOURCE CLEAN CATCH
[2019-02-19 05:41] LABS: URINE EPITHELIAL CELLS <10 /HPF (<10); URINE RBC <10 /HPF (<10); URINE WBC <10 /HPF (<10)
[2019-02-19 05:42] LABS: URINE BACTERIA NEGATIVE /HFP
[2019-02-19] MEDS ORDERED: DUONEB (A & A) INH PRN (09:41)
[2019-02-19] MEDS ORDERED: VENTOLIN HFA INH PRN (12:28)
[2019-02-19] MEDS ORDERED: PATIENT'S OWN MED INH PRN (12:28)
[2019-02-19] MEDS ORDERED: DESYREL PO PRN (12:28)
[2019-02-19] MEDS ORDERED: COZAAR PO ONE (13:16)
[2019-02-19] MEDS: NORCO-10 PO SCH ×2 (13:21→17:32)
[2019-02-19] MEDS: NICODERM PATCH TD SCH (13:22)
[2019-02-19] MEDS: ROCEPHIN 1 GM in NS 50 ML IV SCH (13:22)
[2019-02-19] MEDS: SOLU-MEDROL IV SCH ×2 (13:22→23:16)
[2019-02-19] MEDS: COREG PO SCH ×2 (13:22→23:15)
--- NOTE | 2019-02-19 14:15 | HISTORY AND PHYSICAL ---
CHIEF COMPLAINT: Shoulder pain and chest pain. HISTORY OF PRESENT ILLNESS: Ms. Olivas is a 68-year-old female with a known history of coronary artery disease, COPD, PE and DVT on anticoagulation, who presents with left arm pain, indigestion and lower extremity edema/dyspnea x2 days. Her main complaint was left shoulder pain; however, she denies any overt injury to the shoulder. She does report that she was working in the garden over the past few days but cannot recall any specific injury. She has had indigestion as well with lower extremity edema and shortness of breath. This concerned her to the point where she felt she needed to come to the ER for evaluation. She does report exertional type component to the pain in her chest but also reports that she has pain with palpation of the chest, pain with range of motion of the left arm. In the ER, she actually had a steroid injection done by our ER physician which did help improve the pain. Chest x-ray done shows mild cardiomegaly, decreased in basilar opacities from previous and persistent pleural thickening or atelectasis in the anterior base of the chest visible on lateral view. No pneumothorax. EKG did reveal sinus bradycardia with no acute ST or T wave abnormalities, and her cardiac enzymes have been negative since admission. She will be admitted for further treatment and evaluation. PAST MEDICAL HISTORY: 1. Coronary artery disease, status post MN and stenting. 2. Carotid artery disease, scheduled for carotid endarterectomy in the near future. 3. GERD. 4. Esophageal stricture. 5. Hypertension. 6. Hyperlipidemia. 7. History of DVT and PE. 8. COPD. 9. Nicotine dependence. 10.Depression. PAST SURGICAL HISTORY: She has had a section and coronary stents. SOCIAL HISTORY: She smokes 1/2 pack a day. Denies alcohol or illicit drug use. ALLERGIES: No known drug allergies. HOME MEDICATIONS: Albuterol HFA inhaled as directed, Desyrel 50 mg at bedtime, aspirin 81 mg daily, Coreg 12.5 mg p.o. b.i.d., Cozaar 25 mg daily, Eliquis 5 mg b.i.d., Klonopin 1 mg p.o. t.i.d. as needed, Lasix 20 mg daily, Browder 10 as needed for pain. REVIEW OF SYSTEMS: A 14-point review of systems was obtained and found to be negative with the exception of the HPI. PHYSICAL EXAMINATION: VITAL SIGNS: Blood pressure is 200/87, heart rate 75, respiratory rate 18, O2 saturation is 97% on room air. Temperature is 98.2. GENERAL: Obese female lying in hospital bed, in no acute distress. NEUROLOGICAL: Awake, alert and oriented. Follows commands. No focal deficits. HEENT: Head is atraumatic and normocephalic. Pupils are equal, round and reactive to light. Oral mucosa is moist. NECK: Trachea is midline. There is no JVD. CHEST: Bibasilar wheezes. CARDIOVASCULAR: Regular rate and rhythm. S1 and S2 noted. No appreciable murmurs. GASTROINTESTINAL: Abdomen is soft. Nontender and nondistended. Bowel sounds are active. EXTREMITIES: Left shoulder with mild bruising at the injection point of the steroid injection. She does have pain with range of motion of the shoulder. There is pain with palpation of the shoulder and anterior to the shoulder. Lower extremities without edema. Pulses 1+ bilaterally. DIAGNOSTIC DATA: Chest x-ray shows decreased in basilar opacities, persistent pleural thickening. EKG shows sinus bradycardia with no acute ST or T wave abnormalities. WBC is 8.93, hemoglobin 9.5, hematocrit 35.5, platelet count 258. INR is 1.02. Sodium is 143, potassium 4.4, chloride 109, CO2 is 24, anion gap 10, BUN is 15, creatinine 0.9, glucose 90, calcium 8.6, magnesium 1.7, bilirubin 0.2, AST is 12, ALT is 8, alkaline phosphatase negative. Troponin negative x4 sets. ProBNP is 1236. Albumin 4.1. UA is negative. ASSESSMENT AND PLAN: 1. Left shoulder pain. Pain seems to be musculoskeletal in nature. We will check an x-ray of the shoulder. Her pain does not appear to be cardiovascular in nature or ischemic in nature. She has been ruled out for MN. EKG did not show anything acute. We will have her follow up with her iron pellet tester as long as she is pain free. If she has any more pain, she may need cardiology evaluation. 2. COPD exacerbation. We will add breathing treatments, steroids and aggressive pulmonary toilet. We will add Rocephin to that regimen as well. 3. Stable angina. The patient reports mild chest pain on occasion with exertion. She reports having had a stress test in the past 6 months. We will have her follow up with Cardiology if there are no more issues inpatient. 4. Nicotine dependence. We have advised the patient to quit smoking. We will write a nicotine patch. Continue cessation education. 5. Hypertension. Stable. Continue home medications. 6. History of pulmonary embolism and deep venous thrombosis. The patient is on Eliquis, we will continue. 7. DVT prophylaxis with Eliquis. Further recommendations to follow. Dictated by GENESIS Beal for Jai Goldberg MD cc: GENESIS Beal MD
[2019-02-19] MEDS: KLONOPIN PO PRN ×2 (14:16→23:16)
--- NOTE | 2019-02-19 14:41 | Diag Imaging Result Doc PS360 ---
EXAM: SHOULDER-LEFT HISTORY: pain TECHNIQUE: Two views left shoulder COMPARISON: None. FINDINGS: No fracture. No dislocation. No separation at the acromioclavicular joint. Long-standing deformity to the humeral head which is slightly superiorly placed. IMPRESSION: Long-standing arthritis. Possible chronic rotator cuff tear. Electronically signed by Tacho Jarvis 02/19/2019 2:39 PM
[2019-02-19] MEDS: DUONEB (A & A) INH SCH ×2 (15:36→22:44)
--- NOTE | 2019-02-19 19:18 | HISTORY AND PHYSICAL ---
ADDENDUM: Patient seen and examined by myself. Full note dictated and discussed with nurse practitioner. Patient presented to the hospital complaining of left shoulder pain. Concerned that she may have had heart disease. She has had a history of cardiac stenting as well as congestive heart failure and pulmonary emboli. She recently saw her orthopedic last week for left shoulder pain, and notes that her pain hurts when she moves it. We will admit her to the hospital, rule out LA and will follow. cc: Jai Goldberg MD
[2019-02-19] MEDS: ELIQUIS PO SCH (23:15)
[2019-02-20] MEDS: MORPHINE IV PRN ×5 (02:11→22:32)
[2019-02-20] MEDS: DUONEB (A & A) INH SCH ×4 (03:21→20:59)
[2019-02-20] MEDS: SOLU-MEDROL IV SCH ×2 (06:08→15:10)
[2019-02-20] MEDS: ZOFRAN IV PRN (06:09)
[2019-02-20 07:57] LABS: HEMATOCRIT 33.5 % (37.0-47.0); HEMOGLOBIN 10.9 g/dL (12.0-16.0); IMM GRAN# 0.02 X1000 (0.0-0.04); IMM GRAN% 0.2 % (0.0-0.5); LYMPH% 10.7 % (20.5-51.1); MCH 31.4 PG (27-31); MCHC 32.5 g/dL (33-37); MCV 96.5 FL (81-99); MONO# 0.27 X1000 (0.11-0.59); MONO% 2.4 % (1.7-9.3); MPV 11.1 FL (7.4-10.4); NEUT# 9.75 X1000 (1.4-6.5); NEUT% 86.7 % (42.2-75.2); PLT 274 X1000 (130-400); RBC 3.47 XMIL (4.2-5.4); RDW 13.6 % (11.5-14.5); WBC 11.24 X1000 (4.8-10.8)
[2019-02-20 08:13] LABS: AGAP 9; BUN 15 mg/dL (8-22); CALCIUM 8.5 mg/dL (8.8-10.2); CHLORIDE 107 mmol/L (98-107); COSMO 288; CREATININE 0.7 mg/dL (0.5-0.9); ESTIMATED GFR > 60; GLUCOSE 200 mg/dL (70-104); POTASSIUM 4.1 mmol/L (3.5-5.1); SODIUM 141 mmol/L (136-145); TCO2 26 mmol/L (25-35)
[2019-02-20] MEDS ORDERED: COZAAR PO SCH (09:00)
[2019-02-20 09:21] LABS: ANISOCYTOSIS 1+; BASO 80 % (0-1); MONO 11 % (1-9); SEGS 7 % (42-75)
[2019-02-20] MEDS: ELIQUIS PO SCH ×2 (10:02→20:13)
[2019-02-20] MEDS: NORCO-10 PO SCH ×3 (10:02→20:13)
[2019-02-20] MEDS: ASPIRIN EC PO SCH (10:03)
[2019-02-20] MEDS: NICODERM PATCH TD SCH (10:03)
[2019-02-20] MEDS: COREG PO SCH ×2 (10:03→20:14)
[2019-02-20] MEDS: KLONOPIN PO PRN ×2 (10:14→22:32)
--- NOTE | 2019-02-20 12:12 | EKG Report ---
Test Performed on : 02/18/2019 5:32:28 PM Test Reason : sob left arm pain Blood Pressure : / mmHG Vent. Rate : 059 BPM Atrial Rate : 059 BPM P-R Int : 134 ms QRS Dur : 102 ms QT Int : 410 ms P-R-T Axes : 000 039 046 degrees QTc Int : 405 ms Sinus bradycardia. with premature atrial complexes. Otherwise normal ECG When compared with ECG of 23-DEC-2018 11:36, Previous ECG has undetermined rhythm, needs review Unconfirmed Result
[2019-02-20] MEDS: ROCEPHIN 1 GM in NS 50 ML IV SCH (15:11)
--- NOTE | 2019-02-20 15:59 | PROGRESS NOTE ---
DATE: 02/20/2019 SUBJECTIVE: The patient has no major complaints. She has been having some issues with pain and cramping in her legs, but besides that, no major issues. OBJECTIVE: Vital Signs: Blood pressure is 154/70, heart rate is 74, respiratory rate is 16, temperature was 98.3 degrees, 96% on room air. Cardiovascular: Regular rate and rhythm. Pulmonary: Bilateral breath sounds with minimal wheezing throughout. GI: Soft, nontender, nondistended. Bowel sounds are positive. LABORATORY DATA: White count 11, hemoglobin and hematocrit 10.9 and 33, platelets 274,000. Basic was normal. PROBLEM LIST: 1. Chronic obstructive pulmonary disease exacerbation, acute. Overall, she has improved. We will decrease her steroids. 2. Stable angina. She is still having some intermittent chest pain. She feels like her shoulder pain is better. She does have cardiac risk factors unfortunately. Her EKG was reported as negative. That was on the , and on the , it did not look too unusual. She has had a stress test, but it was in December and was negative. I do think she has known coronary artery disease status post percutaneous coronary intervention, and she has had bilateral carotid stenosis. She is already on Eliquis though, so in any case, I think it is probably safe. I am going to get Cardiology to evaluate her. Hopefully, they will give us some idea about risk stratification imaging. DISPOSITION: Anticipate discharge in another 1 to 2 days pending her clinical status. cc: Tab Ren MD
--- NOTE | 2019-02-20 17:04 | Extremity Venous Study ---
EXAM: Venous U/S Right Arm HISTORY: right arm swelling TECHNIQUE: Routine. COMPARISON: None. FINDINGS: The deep veins of the right upper extremity demonstrate appropriate compressibility and augmentation. No intraluminal thrombus is visualized. There is no evidence for DVT. The superficial veins appear patent. IMPRESSION: No evidence for deep venous thrombosis right upper extremity. Electronically signed by Veronika Berman 02/20/2019 5:01 PM
[2019-02-20] MEDS: ALDACTONE PO SCH (18:39)
--- NOTE | 2019-02-20 19:02 | CARDIOLOGY CONSULTATION ---
DATE: 02/20/2019 CONSULTATION REQUESTED BY: Hospitalist service. PRIMARY DOCTOR: Dr. Velasquez. REASON FOR CONSULTATION: Shoulder pain, indigestion, swelling, coronary heart disease. HISTORY: Ms. Olivas is a 68-year-old female, presenting to the ER on 02/18/2019, at about 5 p.m., with complaints of a couple of days of experiencing left shoulder discomfort. This discomfort caused limitation to the range of motion of the shoulder. In fact, in the ER they did an x-ray that showed long-standing arthritis and possible chronic rotator cuff tear. At any rate, the patient in the ER received a shot to the left shoulder by Dr. Millan. Right now, she does have a bruise area there. The patient says that she became concerned about her heart because she developed indigestion-like discomfort, heartburn, and then she noted some puffiness of the legs and ankles. At that time is when she made a decision to come in. Upon presentation, they did a chest x-ray that shows cardiomegaly with interval decrease in basilar opacities, persistent pleural thickening, atelectasis at anterior base of chest. ProBNP level was checked and it was 1236 picograms/mL, being normal up to 353. Four troponins have been checked; all of them are negative. Her EKG at the time of initial encounter shows sinus rhythm, with no definite prominent Q-waves or ST-T shifts. The patient at this time is sitting upright in bed. She seems to be comfortable. The pain in the shoulder appears to have lessened a little bit. PAST HISTORY: Positive for severe coronary heart disease. She has had previous myocardial infarction and a stent, I believe, around 2012. She was seen by Dr. Thompson, I believe, in December 2017. They did a dobutamine stress test. The date of that is 12/20/2017. It shows some inferior wall ischemia. In July 2018, Dr. Wilson did a heart catheterization in [facility] that revealed patent stents to the LAD territory and a chronically occluded right coronary artery. The patient saw Dr. Thompson last time in November of this year, and she was found to be clinically stable; however, Dr. Thompson requested a carotid ultrasound that shows some moderate carotid artery stenosis, and in fact, requested a second opinion from a vascular surgeon in [place]. A lower extremity ultrasound was done that showed no significant occlusion of the femoral or popliteal vessels. The patient complains of recurrent pain in both legs which bothers her quite a bit. She reports up to 5 consecutive episodes one night of feeling completely limp, falling on the floor, and being unable to move or stand. That has not recurred. She does have history of esophageal stricture. Food gets stuck in her esophagus. About 3 or 4 years ago, Dr. Foote performed esophageal dilatation. She has hypertension for a long time and hyperlipidemia. There is a history of deep venous thrombosis at some point in the past. The actual date is 11/18/2016 when they did a pulmonary arteriogram that showed acute bilateral multifocal pulmonary emboli, and at that time she was treated with anticoagulation. She has continued taking Eliquis since then. She has depression. She has COPD. SURGICAL HISTORY: She has had a previous in the past. SOCIAL HISTORY: She lives by herself. Her son and [id number] live on the 2nd floor of the same house. The patient's about 18 years ago. She smokes between half a pack to 1 pack a day. She is not a drinker. ALLERGIES: Negative. HOME MEDICATIONS: Listed at the time of this admission include: 1. Albuterol inhaler. 2. Eliquis 5 twice a day. 3. Aspirin 81 daily. 4. Carvedilol 12.5 twice a day. 5. Ceftin 500 every 12 hours. 6. Furosemide 20 mg daily. 7. Hydrocodone 10 mg 3 times a day. 8. Losartan 25 daily. 9. Medrol Dosepak, recently prescribed by Dr. Faustin about a week ago or 8 days ago. 10. Trazodone 50 mg at bedtime. REVIEW OF SYSTEMS: The patient has been having issues with sinus allergies and possible sinusitis. Dr. Faustin prescribed antibiotic and steroids to treat the condition. She does have chronic leg pains. She has had some back issues with a presumptive diagnosis of degenerative disk disease. No other major positives in the multiple system review. PHYSICAL EXAMINATION: Vital Signs: Blood pressure is 154/70, her pulse rate is 74, respirations 16, temperature is 98.3 degrees. General: She is awake, alert, oriented, in no distress. HEENT: Unremarkable. Chest: Sounds quite clear to auscultation and percussion. Heart: Sounds are regular and rhythmic. No gallop or murmur. Abdomen: Nontender, soft. No masses. No hepatomegaly. Extremities: Slightly decreased pulses bilaterally. There is no definite edema. Neurologic: Nonfocal. Moves all 4 extremities. BLOOD WORK: White count is 11,240. Hemoglobin 10.9. Sodium 141, potassium 4.1, BUN 13, creatinine 0.7. Urine culture shows that she is growing gram-negative rods. IMPRESSION: 1. Patient with shoulder pain due to arthritis. Question of angina pectoris/atypical chest pain. 2. History of severe coronary heart disease, presumably stable. She has chronic occlusion of the right coronary artery and patent stents to the left anterior descending as of July 2013. 3. Prior history of acute pulmonary emboli in November 2016. 4. History of bilateral carotid artery disease of moderate severity. This is being followed by Vascular Surgery in [place]. 5. Urinary tract infection, growing currently gram-negative rods. 6. Long-term anticoagulation with Eliquis. 7. History of esophageal stricture and gastroesophageal reflux disease. 8. Tobacco user. RECOMMENDATIONS: At this point in time, I would suggest to continue present medical therapy as you are doing. I really do not have any specific recommendations other than perhaps try a low dose of Spironolactone because of the elevated pro BNP. She may have some chronic diastolic heart failure. The spironolactone should help to optimize her volume issues, and especially since she just received a shot of methylprednisolone, it is likely that may have contributed to the rise in blood pressure, and also to some degree to the worsening in the symptoms of gastroesophageal reflux disease due to the steroid effect. She may be discharged home at your earliest convenience, and instructions to follow up with Dr. Thompson in about a month just for a regular checkup. cc: Rick Carbone MD [facility]
[2019-02-20] MEDS: COZAAR PO SCH (20:13)
[2019-02-21] MEDS: MORPHINE IV PRN ×3 (02:17→12:45)
[2019-02-21] MEDS: DUONEB (A & A) INH SCH ×4 (03:25→22:42)
[2019-02-21] MEDS: SOLU-MEDROL IV SCH ×2 (03:31→15:27)
[2019-02-21 07:43] LABS: HEMATOCRIT 34.5 % (37.0-47.0); IMM GRAN# 0.03 X1000 (0.0-0.04); IMM GRAN% 0.2 % (0.0-0.5); LYMPH# 1.42 X1000 (1.2-3.4); LYMPH% 7.7 % (20.5-51.1); MCH 30.8 PG (27-31); MCHC 31.9 g/dL (33-37); MCV 96.6 FL (81-99); MONO# 0.87 X1000 (0.11-0.59); MONO% 4.7 % (1.7-9.3); MPV 11.2 FL (7.4-10.4); NEUT% 87.4 % (42.2-75.2); PLT 327 X1000 (130-400); RBC 3.57 XMIL (4.2-5.4); WBC 18.42 X1000 (4.8-10.8)
[2019-02-21 07:44] LABS: AGAP 10; BUN 20 mg/dL (8-22); CALCIUM 8.7 mg/dL (8.8-10.2); CHLORIDE 103 mmol/L (98-107); COSMO 285; CREATININE 0.8 mg/dL (0.5-0.9); ESTIMATED GFR > 60; GLUCOSE 148 mg/dL (70-104); POTASSIUM 4.8 mmol/L (3.5-5.1); SODIUM 140 mmol/L (136-145); TCO2 27 mmol/L (25-35)
[2019-02-21] MEDS: ALDACTONE PO SCH (09:52)
[2019-02-21] MEDS: COREG PO SCH ×2 (09:52→20:31)
[2019-02-21] MEDS: NORCO-10 PO SCH ×3 (09:53→20:31)
[2019-02-21] MEDS: ELIQUIS PO SCH ×2 (09:53→20:31)
[2019-02-21] MEDS: COZAAR PO SCH ×2 (09:53→20:31)
[2019-02-21] MEDS: NICODERM PATCH TD SCH (09:53)
[2019-02-21] MEDS: ASPIRIN EC PO SCH (09:53)
[2019-02-21] MEDS: KLONOPIN PO PRN ×2 (09:59→18:27)
[2019-02-21 11:55] LABS: ANISOCYTOSIS 1+; LYMPHS 12 % (21-51); MONO 3 % (1-9); SEGS 85 % (42-75)
[2019-02-21] MEDS: ROCEPHIN 1 GM in NS 50 ML IV SCH (12:44)
--- NOTE | 2019-02-21 18:07 | PROGRESS NOTE ---
DATE: 02/21/2019 SUBJECTIVE: The patient is doing well. She is sitting up in bed. Breathing is improved. Complains of shoulder pain. OBJECTIVE: Vital signs: Blood pressure 168/70, heart rate 62, respiratory rate 18, temperature 98.1 degrees, 96% on 2 L. Cardiovascular: Regular rate and rhythm. Pulmonary: Bilateral breath sounds. Clear to auscultation. GI: Soft, nontender, nondistended. Bowel sounds are positive. Skin: She does have some bruising over her left shoulder where she got a steroid injection, but she was also, unfortunately, on Eliquis again. LABORATORY DATA: White count is up to 18 today, which is predominantly neutrophils, neutrophilia, so likely steroids. Although curiously, her differential from yesterday showed 80% basophils and that completely switch today. Her basic is normal. She is looking much better. Anticipated discharge but with her white count jumping like, we are going to watch her a little bit longer. PROBLEM LIST: 1. Acute chronic obstructive pulmonary disease exacerbation. She is improved. We will decrease steroids further. 2. Stable angina. I have had a Cardiology evaluation. Dr. Carbone has seen her and states that she is stable. She has a chronic I think occlusion per cath that is stable and he felt like she did need any further treatment as far as any further workup and she could follow up with her primary federal judicial law clerk. DISPOSITION: I think if she is stable anticipate discharge tomorrow. I will go ahead and do a home O2 evaluation, although I am not entirely sure she will qualify. But, anticipate discharge tomorrow. cc: Tab Ren MD
[2019-02-22] MEDS: DUONEB (A & A) INH SCH ×2 (04:03→09:19)
[2019-02-22] MEDS: KLONOPIN PO PRN (05:41)
[2019-02-22 07:32] LABS: HEMATOCRIT 34.8 % (37.0-47.0); HEMOGLOBIN 11.2 g/dL (12.0-16.0); IMM GRAN# 0.04 X1000 (0.0-0.04); IMM GRAN% 0.2 % (0.0-0.5); LYMPH# 1.61 X1000 (1.2-3.4); MCH 31.2 PG (27-31); MCHC 32.2 g/dL (33-37); MCV 96.9 FL (81-99); MONO# 1.15 X1000 (0.11-0.59); MONO% 7.1 % (1.7-9.3); NEUT% 82.7 % (42.2-75.2); PLT 342 X1000 (130-400); RBC 3.59 XMIL (4.2-5.4); RDW 14.2 % (11.5-14.5)
[2019-02-22 07:49] LABS: AGAP 8; BUN 28 mg/dL (8-22); CALCIUM 8.4 mg/dL (8.8-10.2); CHLORIDE 106 mmol/L (98-107); COSMO 288; CREATININE 0.8 mg/dL (0.5-0.9); ESTIMATED GFR > 60; GLUCOSE 151 mg/dL (70-104); POTASSIUM 4.2 mmol/L (3.5-5.1); SODIUM 140 mmol/L (136-145); TCO2 26 mmol/L (25-35)
[2019-02-22 08:24] VITALS: BP 116/60
[2019-02-22] MEDS ORDERED: SOLU-MEDROL IV SCH (09:00)
[2019-02-22] MEDS: COREG PO SCH (09:35)
[2019-02-22] MEDS: ASPIRIN EC PO SCH (09:35)
[2019-02-22] MEDS: NICODERM PATCH TD SCH (09:35)
[2019-02-22] MEDS: ALDACTONE PO SCH (09:36)
[2019-02-22] MEDS: COZAAR PO SCH (09:36)
[2019-02-22] MEDS: ELIQUIS PO SCH (09:36)
[2019-02-22] MEDS: NORCO-10 PO SCH (09:37)
--- NOTE | 2019-02-22 10:13 | Diag Imaging Result Doc PS360 ---
EXAM: CHEST-2 VIEWS HISTORY: hypoxia TECHNIQUE: Chest two views COMPARISON: 02/18/2015 FINDINGS: There is a dense right middle lobe pneumonia with atelectasis. Mild increased interstitial markings in the left base as well. The heart is mildly prominent. Questionable trace pleural fluid. IMPRESSION: Mild interval worsening Electronically signed by Tacho Jarvis 02/22/2019 10:11 AM
[2019-02-22] MEDS ORDERED: MORPHINE IV PRN (11:01)
--- NOTE | 2019-02-22 15:19 | DISCHARGE SUMMARY ---
ADMISSION DATE: 02/18/2019 DISCHARGE DATE: 02/22/2019 CONSULTATIONS: Dr. Carbone of Cardiology. PERTINENT PROCEDURES: 1. Initial chest x-ray with stable mild cardiomegaly, interval decrease in basilar opacities, persistent pleural thickening and/or atelectasis of the anterior base of the chest. 2. Left shoulder x-ray long-standing arthritis, possible chronic rotator cuff care tear. 3. Venous Doppler of the right arm showed no evidence of DVT. 4. Final chest x-ray showed mild interval worsening. DISCHARGE DIAGNOSES: 1. Acute chronic obstructive pulmonary disease exacerbation. The patient has improved. She has been weaned on her steroids. Will be discharged on p.o. antibiotics and a steroid Dosepak. She did not qualify for home O2. 2. Right middle lobe pneumonia. The patient will continue with p.o. antibiotics with Omnicef for 10 days. 3. Left shoulder pain, musculoskeletal in nature. X-ray showed long-standing arthritis and possible chronic rotator cuff tear. She will need to follow up with Orthopedics. 4. Reported chest pain. She was followed by Cardiology. Dr. Carbone suggested to continue present medical therapy and added spironolactone because of an elevated proBNP. [place] she may have some chronic diastolic heart failure. She will need to follow up with Dr. Thompson as an outpatient. She does have a chronic occlusion per heart catheterization. Again, she will need to follow up with her primary game farm helper, Dr. Thompson. 5. Nicotine dependence. The patient was educated on smoking cessation as well as the means to quit and also provided with nicotine patch. 6. Hypertension. Continue home medications. 7. History of PE and DVT in the past. We will continue on Eliquis and low-dose aspirin. HOSPITAL COURSE: Briefly, Ms. Olivas is a 68-year-old female with known coronary artery disease, COPD, PE and DVT on anticoagulation with Eliquis, who presented to the ED complaining of left arm pain in the shoulder, indigestion, and lower extremity edema, and dyspnea. She became concerned given her lower extremity edema and shortness of breath so she came to the ED. She did receive a steroid injection in her left arm by the ED physician that did improve her pain. Her chest x-ray showed mild cardiomegaly and decrease in bibasilar opacities from previous persistent pleural thickening. EKG reveals sinus bradycardia with no acute ST-T wave abnormalities. Cardiac enzymes were negative, and was admitted for acute COPD exacerbation and unstable angina for which she was evaluated by Cardiology. He added spironolactone to her medical regimen, but did not feel that she needed any further intervention except to follow up with her primary game farm helper, Dr. Thompson. She did develop a right middle lobe pneumonia. She was already being treated with antibiotics, and will be discharged on p.o. Omnicef b.i.d. for 10 days. Continue her home bronchodilators and Medrol Dosepak. She did not qualify for home O2, and will be discharged back home with self care. VITAL SIGNS: Temperature is 98.3 degrees, heart rate 62, respirations 18, blood pressure 116/60, and O2 is 95% on room air. DISCHARGE DIET: Healthy heart. DISCHARGE MEDICATIONS: 1. Desyrel 50 mg p.o. at bedtime. 2. Albuterol sulfate 8.5 g inhaled as directed. 3. Aeroneb nebulizer 1 each MC daily p.r.n. wheezing. 4. Lactone 12.5 mg p.o. daily. 5. Aspirin 81 mg p.o. daily. 6. Coreg 12.5 mg p.o. b.i.d. 7. Cozaar increased to 25 mg p.o. b.i.d. 8. Albuterol or DuoNeb nebs 3 mL RT q.6 hours. 9. Eliquis 5 mg p.o. b.i.d. 10. Klonopin 1 mg p.o. t.i.d. p.r.n. 11. Lasix 20 mg p.o. daily. 12. Medrol Dosepak 4 mg p.o. as directed. 13. NicoDerm patch 14 mg TD daily. 14. [place] 10/325 10 mg p.o. t.i.d. 15. Omnicef 300 mg p.o. b.i.d. for 10 days. FOLLOWUP: Ms. Olivas is being discharged to home with home health. She will follow up with her game farm helper Dr. Thompson on 04/04/2019 as well as her primary care provider Dr. Velasquez. She will need to follow up with Orthopedics in regard to her left possible rotator cuff tear. She can return to the ED or call 911 for any worsening of symptoms. Dictated by GENESIS Johnson for Tab Ren MD cc: MD Dr. Ramin Sam MD
--- NOTE | 2019-02-23 03:14 | DISCHARGE SUMMARY ---
ADMISSION DATE: 02/18/2019 DISCHARGE DATE: 02/22/2019 ADDENDUM: The patient on the day of discharge is tearful because of pain. We stopped her IV morphine last night, and she is describing more pain in her legs, but her breathing is better. She has no rhonchi, no rales. She is not hypoxic. She did not qualify for home oxygen after exertion and at rest, and she feels stable for her to be discharged. White count is down to 16. Her chest x-ray did show persistent infiltrate in the right middle lobe. I recommend breathing treatments and antibiotics, and follow up with her PCP. I adjusted her medications as well. TIME SPENT: This took 32 minutes for discharge with Norma Gregorio. cc: Tab Ren MD
== END 2019-02-22 14:05 | disposition home health service (06) | DRG 190 ==
LOC: P.MEDSURG 17:07 → P.ED 17:07 → OBSVTOIN 21:16 → SUATTDRO 21:16
PROVIDERS: ATTEND Internal Medicine
CPT/HCPCS: 36415; 71020; 71046; 73030; 80048; 80053; 81001; 82550; 83735; 83880; 84484; 85025; 85379; 85610; 87077; 87088; 87186; 93005; 93971; 94640; 94761; 96374; 96375; 99285; A9270; J0696; J1030; J2270; J2405; J2920

== ENCOUNTER 2019-04-03 22:45 | Inpatient (IN) ==
--- NOTE | 2019-04-03 23:19 | PROVIDER DOCUMENTATION ---
HPI-Neurological Disorder - General Chief Complaint: Altered Mental Status Stated Complaint: ALTERED MENTAL STATUS Time Seen by Provider: 04/03/19 23:04 Source: patient, family Allergies/Adverse Reactions: Patient Allergies Allergy/AdvReac Type Severity Reaction Status Date / Time No Known Allergies Allergy Verified 04/03/19 23:00 Home Medications: Home Medication List Medication Instructions Recorded Confirmed Last Taken Type Nebulizer [Aeroneb Go Nebulizer] 1 each MC DAILY PRN PRN #1 each 03/24/17 04/04/19 02/03/18 Rx Apixaban [Eliquis] 5 mg PO BID tablet 04/27/17 04/04/19 04/11/18 10:00 Rx Albuterol Sulfate [Albuterol 8.5 gm IH DIRECTED PRN PRN 02/03/18 04/04/19 02/03/18 History Sulfate Hfa] Albuterol 2.5MG/Ipratrop 0.5MG 3 ml INH RTQ6H neb 02/04/18 04/04/19 Unknown Rx [Duoneb (A & A)] Aspirin EC 81 mg PO DAILY tablet 02/04/18 04/04/19 04/11/18 10:00 Rx Carvedilol [Coreg] 12.5 mg PO BID tablet 02/04/18 04/04/19 04/11/18 10:00 Rx Furosemide [Lasix] 20 mg PO DAILY PRN PRN tablet 02/04/18 04/04/19 04/11/18 10:00 Rx Hydrocodone/APAP 7.5 mg/325 mg 1 ea PO TID #10 tab 02/22/19 04/04/19 Unknown Rx [[place]-7.5] Clonazepam [Klonopin] 1 mg PO BID 04/04/19 04/04/19 Unknown History LISINOpril [Prinivil] 10 mg PO DAILY 04/04/19 04/04/19 Unknown History Meloxicam 15 mg PO DAILY 04/04/19 04/04/19 Unknown History Spironolactone [Aldactone] 25 mg PO DAILY 04/04/19 04/04/19 Unknown History - History of Present Illness-Neuro Nature of Presenting Problem: Patient is a 68yo WF with history of atrial fibrillation and TIA who presents with decreased mental status since yesterday.. Patient's son and daughter in law are with her and report she is not making any sense. Report that patient's brother, who also lived with them, yesterday and patient has been very emotional since. Patient is alert to person, however reports it is 2011 and is unable to identify the president or identify where she is currently. Patient is tearful and agitated. Son reports she takes multiple medications, however reports he cannot find where her medications are. Patient denies any CP, SOB, pain, or fever/chills. Followed by Dr. Faustin. Onset/Duration: reports: this morning Timing: reports: still present Context: reports: other (altered mental status) Character of Altered Mental Status: reports: agitated, other (tearful) Any recent trauma/injury?: reports: none New weakness or altered sensation location:: reports: none Cognitive Baseline: alert but confused Gait Baseline: walks without assistance Associated Symptoms: reports: denies symptoms Similar Symptoms Previously?: No Recently seen or treated by another doctor?: No Review of Systems - Adult - REVIEW OF SYSTEMS - ADULT Constitutional: denies: chills, fever Eyes: reports: no symptoms reported Ears, Nose, Mouth & Throat: reports: no symptoms reported Cardiovascular: denies: chest pain, palpitations, syncope Respiratory: denies: cough, shortness of breath Gastrointestinal: denies: diarrhea, nausea, vomiting Genitourinary: reports: no symptoms reported Musculoskeletal: reports: no symptoms reported Integumentary: reports: no symptoms reported Neurological: reports: see HPI. denies: dizziness/vertigo, headache/migraines, paresthesia, slurred speech, tremors Psychiatric: reports: see HPI, emotional problems Endocrine: reports: no symptoms reported All Other Systems: Reviewed and Negative Past History - Adult - PAST MEDICAL HISTORY-ADULT Review of Records: reports: Nursing Assessment Review, Medications Reviewed Major Childhood Illnesses: reports: denies history Cardiovascular: reports: cardiac disease, A-Fib, blood clots, HTN, other (stents put in) Respiratory: reports: asthma, COPD Gastrointestinal: reports: denies history Obstetrical/Gynecological: reports: denies history Genitourinary: reports: denies history Musculoskeletal: reports: chronic pain, intervertebral disc disease Neurological: reports: denies history Psychiatric: reports: depression Endocrine/Immune: reports: denies history Other Conditions: reports: denies history - PRIOR SURGERIES/PROCEDURES Surgical/Procedure History: reports: cardiac stent (cardiac stents x2), C- section - IMMUNIZATION STATUS Childhood Immunizations: See Nurse Assessment Flu Vaccine: See Nurse Assessment - FAMILY HISTORY Family History: reviewed, not pertinent Physical Exam- Neurological - Physical Exam-Neuro Initial Vital Signs Reviewed: Yes General Appearance: alert, mild distress, other (tearful) Eye Exam: bilateral eye: normal inspection, PERRL, EOMI HENMT: normocephalic/atraumatic, moist mucous membranes Head Injury: no evidence of injury Neck: full range of motion, supple, normal inspection Respiratory: chest non-tender, lungs clear, normal breath sounds, no pleuratic chest pain, no respiratory distress, no accessory muscle use Cardiovascular: no gallop, no murmur, tachycardia (114), irregularly irregular Lymphatic: no adenopathy Extremity: normal range of motion, non-tender, 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 Exam: normal hearing, normal speech, PERRL Coordination/Gait: normal finger to nose, normal gait Motor/Sensory: no motor deficit, no sensory deficit, no pronator drift Neurologic: grossly normal Integumentary: normal color, warm/dry Psych/Mental Status: depressed affect, tearful, other (oriented to person) - Glascow Coma Scale Best Eye Response: (4) open spontaneously Best Verbal Response: (4) confused conversation Best Motor Response: (6) obeys commands Total Glascow Score: 14 Progress - PLAN OF CARE/RESULTS Progress/Plan/Lab Results: Vital Signs - 8 hr 04/03/19 22:53 04/04/19 00:00 04/04/19 02:00 Temperature 98.4 F 98 F Pulse Rate 114 H 110 H 88 Respiratory Rate 16 16 18 Blood Pressure 92/59 91/69 114/84 O2 Sat by Pulse Oximetry 97 95 95 Laboratory Results - last 24 hr 04/03/19 04/03/19 04/03/19 23:40 23:40 23:40 WBC RBC Hgb Hct MCV MCH MCHC RDW Std Deviation Plt Count MPV Immature Gran % (Auto) Neut % (Auto) Lymph % (Auto) [place] % (Auto) Eos % (Auto) Baso % (Auto) Immature Gran # (Auto) Neut # (Auto) Lymph # (Auto) [place] # (Auto) Eos # (Auto) Baso # (Auto) PT 15.0 INR 1.12 PTT (Actin FS) 33.7 Sodium Potassium Chloride Carbon Dioxide Anion Gap BUN Creatinine Estimated GFR/1.73 m2 BUN/Creatinine Ratio Glucose POC Glucose Calculated Osmolality Calcium Total Bilirubin AST ALT Alkaline Phosphatase Creatine Kinase Troponin T < 0.010 Eii-C-Keasvuhxuyo Pept 2704 H Total Protein Albumin Globulin Albumin/Globulin Ratio 04/03/19 04/03/19 04/03/19 23:40 23:40 23:51 WBC 8.28 RBC 4.04 L Hgb 12.6 Hct 39.4 MCV 97.5 MCH 31.2 H MCHC 32.0 L RDW Std Deviation 14.2 Plt Count 311 MPV 10.6 H Immature Gran % (Auto) 0.2 Neut % (Auto) 53.5 Lymph % (Auto) 28.6 [place] % (Auto) 15.7 H Eos % (Auto) 1.4 Baso % (Auto) 0.6 Immature Gran # (Auto) 0.02 Neut # (Auto) 4.42 Lymph # (Auto) 2.37 [place] # (Auto) 1.30 H Eos # (Auto) 0.12 Baso # (Auto) 0.05 PT INR PTT (Actin FS) Sodium 142 Potassium 4.4 Chloride 107 Carbon Dioxide 22 L Anion Gap 14 BUN 20 Creatinine 1.2 H Estimated GFR/1.73 m2 45 BUN/Creatinine Ratio 17 Glucose 107 H POC Glucose 95 Calculated Osmolality 286 Calcium 9.0 Total Bilirubin 0.20 AST 16 ALT 10 Alkaline Phosphatase 61 Creatine Kinase 44 Troponin T Oto-Z-Ztcpdocvzwi Pept Total Protein 6.3 Albumin 3.9 Globulin 2.0 Albumin/Globulin Ratio 2.0 Orders Category Date Time Status Admit - [facility] Routine AdmDCTranf 04/04/19 02:09 Active Activity - Strict Bedrest ORDERED Care 04/04/19 02:09 Active FSBS/Accucheck Result NOW Care 04/03/19 22:51 Active Neurological Check Q4H Care 04/04/19 02:13 Active Resuscitation Status Routine Care 04/04/19 02:09 Ordered Vital Signs Order Q 4-HR ASSESS Care 04/04/19 02:09 Active Z-Document. for Tele Applied ORDERED Care 04/04/19 02:12 Active CHEST-PORTABLE [RAD] Stat Exams 04/04/19 00:[address] HEAD W/O CONTRAST [CT] Stat Exams 05/21/19 00:09 Taken CBC WITH ELECTRONIC DIFF [HEME] Stat Lab 04/03/19 23:40 Completed CK PROFILE [SP CHEM] Stat Lab 04/03/19 23:40 Completed COMPREHENSIVE METABOLIC PANEL [CHEM] Stat Lab 04/03/19 23:40 Completed PRO B-NATRIURETIC PEPTIDE Stat Lab 04/03/19 23:40 Completed PROTIME WITH INR [COAG] Stat Lab 04/03/19 23:40 Completed PTT [COAG] Stat Lab 04/03/19 23:40 Completed TROPONIN T Stat Lab 04/03/19 23:[address] W/POSS RFLX CULT [URINALYSIS] Stat Lab 04/03/19 22:51 Uncollected URINE DRUG SCREEN PL Stat Lab 04/03/19 23:05 Uncollected Diltiazem [Cardizem] Med 04/04/19 00:54 Discontinued 15 mg IV NOW ONE Diltiazem [Cardizem] Med 04/04/19 02:30 Active 30 mg PO Q6H Telemetry [OM.EQ] Routine Oth 04/04/19 02:09 Active EKG [EKG] Stat Ther 04/03/19 23:13 Draft EKG [EKG] Stat Ther 04/04/19 02:26 Ordered Transfer/Admit Order [TRANSFER] Routine Transfer 04/04/19 02:18 Ordered 2350: Patient reported new onset CP to the nurse while IV was being placed. Cardiac enzymes drawn and EKG performed. Plan of care discussed and formulated in conjunction with Dr. Chris who also examined the patient. Result Diagrams: 04/03/19 23:40 04/03/19 23:40 - EKG 1 Time of EKG reading by physician:: 00:01 EKG Read and Signed by:: Griffin Chris EKG Interpretation (*Must complete 3 of following elements*): Abnormal Rate: 119 Rhythm: A-fib with RVR [place]: normal QRS: normal PA Interval: normal ST Wave: non-specific ST changes 2 Time of EKG reading by physician:: 02:34 EKG Read and Signed by:: Griffin Chris Rate: 72 Rhythm: atrial fibrillation ST Wave: non-specific ST changes Prior EKG Comparison: changes noted Comments: rate is now controlled after IV Cardizem - CT/MRI 1 CT Study: Head CT Results: NAD - CONSULTS/PCP/HOSPITALIST Notification #1 *Consult/PCP/Hospitalist*: Dr. Ren, hospitalist Time Discussed: 01:55 Consult Disposition: Admit - CHANGE OF SHIFT REPORT (ED Provider) 1 Report Given and Care Transferred to:: MD Aries Time of Transfer: 00:46 Items Pending: CT/MRI Results, Other (dispo) Departure - Departure Date of Disposition Decision: 04/04/19 Time of Disposition Decision: 03:07 DIAGNOSIS: Atrial fibrillation with RVR Altered mental status Qualifiers: Altered mental status type: disorientation Qualified Code(s): R41.0 - Disorientation, unspecified Disposition: ADMITTED INPATIENT 09 Certified Medical Emergency: Emergent Condition: Stable Additional Freetext Instructions: ED Follow Up Instructions: You have been treated by a care provider in the Emergency Department. These instructions are being provided to you so you can have an understanding of how to care for yourself upon discharge. Upon discharge from the Emergency Department, you are responsible for making arrangements for follow-up care by a physician of your choice. Take all prescribed medications as directed. Return to the Emergency Department immediately for any new or worsening symptoms. You may call the Physician Referral phone number at [phone] to obtain a list of Physicians who are taking new patients. Referrals and Follow-Ups: Alexis Faustin MD [Primary Care Provider] - - Critical Care Note This patient required my direct & personal management of CC.: No Attestation - Physician/ KRYSTAL Attestation Patient care was provided by Advanced Practice Provider:: Yes Advanced Practice Provider:: Talya Ward Advanced Practice Provider documentation review:: The Mid-level provider documentation, treatment plan and medical decision making was reviewed by the physician who agrees with all treatment and medical decision making by the MLP. The physician spent face to face time with patient:: No Advanced Practice Provider documentation review:: Supervising physician onsite and consulted in the evaluation and care of this patient. The physician did not have a face to face encounter with the patient. - NIH Stroke Scale NIH Type: Initial Evaluation Level of Consciousness: 0-Alert LOC Questions (ask month and age): 2-Both Incorrect LOC Commands (ask to open & close eyes;make a fist, let go): 0-Obeys Both Correctly Best Gaze (horizontal eye movement): 0-Normal Visual (use finger movement, counting or visual threat): 0-No Visual Loss Facial Palsy (show teeth or raise eyebrows & close eyes tght: 0-Symmetrical Movement Motor Function-left arm: 0-Normal Motor Function-right arm: 0-Normal Motor Function-left le-Normal Motor Function-right le-Normal Limb Ataxia(jpkqbz-begn-roturw, or heel to fritz): 0-No Ataxia Sensory(pin prick to face,arms,trunk,legs-compare side/side): 0-No Ataxia Best Language(name item/read sentence.Ex-Down to Earth): 0-No Aphasia Dysarthria(Pt read words or say words Ex.Mama,Tip-Top,Thanks: 0-Normal Articulation Extinction and Inattention: 0-Normal NIH Total Score: 2
[2019-04-04 00:07] LABS: BASO# 0.05 X1000 (0.0-0.2); BASO% 0.6 % (0.0-0.8); EOS# 0.12 X1000 (0.0-0.7); EOS% 1.4 % (0.0-10.0); HEMATOCRIT 39.4 % (37.0-47.0); HEMOGLOBIN 12.6 g/dL (12.0-16.0); IMM GRAN# 0.02 X1000 (0.0-0.04); IMM GRAN% 0.2 % (0.0-0.5); LYMPH# 2.37 X1000 (1.2-3.4); LYMPH% 28.6 % (20.5-51.1); MCH 31.2 PG (27-31); MCV 97.5 FL (81-99); MONO% 15.7 % (1.7-9.3); MPV 10.6 FL (7.4-10.4); NEUT# 4.42 X1000 (1.4-6.5); NEUT% 53.5 % (42.2-75.2); PLT 311 X1000 (130-400); RBC 4.04 XMIL (4.2-5.4); RDW 14.2 % (11.5-14.5); WBC 8.28 X1000 (4.8-10.8)
[2019-04-04 00:24] LABS: INR 1.12
[2019-04-04 00:25] LABS: PTT 33.7 Seconds (22.3-41.8)
[2019-04-04 00:34] LABS: ALBUMIN 3.9 g/dL (3.5-5.0); CREATININE 1.2 mg/dL (0.5-0.9); POTASSIUM 4.4 mmol/L (3.5-5.1); TOTAL BILIRUBIN 0.2 mg/dL (0.20-1.00); TOTAL PROTEIN 6.3 g/dL (6.3-8.3)
--- NOTE | 2019-04-04 00:35 | EKG Report ---
Test Performed on : 04/04/2019 00:00:59 AM Test Reason : Palpitations Blood Pressure : / mmHG Vent. Rate : 119 BPM Atrial Rate : 163 BPM P-R Int : 000 ms QRS Dur : 100 ms QT Int : 362 ms P-R-T Axes : 000 053 139 degrees QTc Int : 509 ms Atrial fibrillation. with rapid ventricular response. Nonspecific T wave abnormality Abnormal ECG When compared with ECG of 18-FEB-2019 17:32, Atrial fibrillation. has replaced Sinus rhythm. Vent. rate has increased BY 60 BPM Nonspecific T wave abnormality now evident in Inferior leads Nonspecific T wave abnormality now evident in Anterolateral leads Unconfirmed Result
[2019-04-04] MEDS ORDERED: CARDIZEM IV ONE (00:54)
[2019-04-04] MEDS: CARDIZEM PO SCH ×3 (03:50→16:36)
--- NOTE | 2019-04-04 04:06 | EKG Report ---
Test Performed on : 04/04/2019 02:33:06 AM Test Reason : atrial fib with RVR Blood Pressure : / mmHG Vent. Rate : 072 BPM Atrial Rate : 094 BPM P-R Int : 000 ms QRS Dur : 098 ms QT Int : 428 ms P-R-T Axes : 000 049 -14 degrees QTc Int : 468 ms Atrial fibrillation. Nonspecific T wave abnormality Abnormal ECG When compared with ECG of 04-APR-2019 00:00, (Unconfirmed) Vent. rate has decreased BY 47 BPM Unconfirmed Result
--- NOTE | 2019-04-04 05:53 | Diag Imaging Result Doc PS360 ---
EXAM: CHEST-PORTABLE HISTORY: atrial fib TECHNIQUE: Portable chest COMPARISON: 02/22/2019 FINDINGS: The lungs are well expanded. The heart is enlarged. There are increased interstitial markings in the right middle lobe and lingular segment of left upper lobe. Upper lungs are clear. No pleural effusions identified. IMPRESSION: Bilateral infiltrates with cardiomegaly. Electronically signed by Tacho Jarvis 04/04/2019 5:51 AM
--- NOTE | 2019-04-04 06:03 | Diag Imaging Result Doc PS360 ---
EXAM: CT HEAD W/O CONTRAST HISTORY: altered mental status TECHNIQUE: CT head without contrast COMPARISON: 04/27/2018 FINDINGS: No parenchymal hemorrhage. No epidural or subdural hematoma. No subarachnoid hemorrhage. Minimal chronic microvascular ischemic changes. No mass identified on this noncontrasted exam. No hydrocephalus. No sinus opacification. IMPRESSION: 1.No hemorrhage 2.Mild chronic microvascular ischemic changes 3.A preliminary report was given at 12:57 AM This exam was performed using automated exposure control, adjustment of mA or kV according to patient size, and/or use of iterative reconstruction technique. Electronically signed by Tacho Jarvis 04/04/2019 6:00 AM
[2019-04-04 06:36] LABS: BILIRUBIN URINE NEGATIVE (NEGATIVE); BLOOD URINE NEGATIVE (NEGATIVE); CLARITY CLEAR (CLEAR); COLOR YELLOW; GLUCOSE URINE NEGATIVE (NEGATIVE); KETONE URINE NEGATIVE (NEGATIVE); LEUKOCYTES URINE NEGATIVE (NEGATIVE); NITRITE URINE NEGATIVE (NEGATIVE); PROTEIN URINE TRACE mg/dL (NEGATIVE); SP GRAVITY URINE 1.015; UROBILINOGEN URINE NORMAL
[2019-04-04 06:39] LABS: URINE BACTERIA NEGATIVE /HFP; URINE CAST NONE SEEN /LPF; URINE CRYSTAL NONE SEEN /HPF; URINE EPITHELIAL CELLS <10 /HPF (<10); URINE RBC <10 /HPF (<10); URINE SOURCE CLEAN CATCH; URINE WBC <10 /HPF (<10); URINE YEAST NONE SEEN /HPF
[2019-04-04 06:54] LABS: UR AMPHETAMINES QUAL NONE DETECTED (NONE DETECT); UR BARBITUATES QUAL NONE DETECTED (NONE DETECT); UR BENZODIAZEPIN QUAL PRESUMPTIVE POSITIVE (NONE DETECT); UR CANNABINOIDS QUAL NONE DETECTED (NONE DETECT); UR COCAINE QUAL NONE DETECTED (NONE DETECT); UR METHADONE QUAL NONE DETECTED (NONE DETECT); UR METHAMPHETAMINE QUAL NONE DETECTED (NONE DETECT); UR OPIATES QUAL PRESUMPTIVE POSITIVE (NONE DETECT); UR OXYCODONE QUAL NONE DETECTED (NONE DETECT); UR PCP QUAL NONE DETECTED (NONE DETECT); UR PROPOXYPHENE QUAL NONE DETECTED (NONE DETECT); UR TCA QUAL NONE DETECTED (NONE DETECT)
[2019-04-04] MEDS ORDERED: LASIX IV SCH (09:45)
[2019-04-04] MEDS ORDERED: LEVAQUIN 750 MG/D5W 750 MG/150 ML IVPB IV SCH (10:00)
[2019-04-04] MEDS ORDERED: [UNRECOGNIZED DRUG - OTHER] MC PRN (10:14)
[2019-04-04] MEDS ORDERED: KLONOPIN PO SCH (10:15)
[2019-04-04] MEDS ORDERED: ELIQUIS PO SCH (10:15)
[2019-04-04] MEDS: MAXIPIME 2 GM in NS 100 ML IV SCH ×2 (10:21→22:31)
[2019-04-04] MEDS ORDERED: PRINIVIL PO SCH (10:30)
[2019-04-04] MEDS: ZOFRAN IV PRN (11:06)
[2019-04-04] MEDS: ZYVOX 600 MG/D5W 600 MG/300 ML IVPB IV SCH ×2 (11:09→21:57)
[2019-04-04] MEDS: ASPIRIN EC PO SCH (11:13)
[2019-04-04] MEDS: COREG PO SCH ×2 (11:13→20:32)
[2019-04-04] MEDS: XOPENEX NEB INH SCH ×4 (11:31→23:18)
[2019-04-04] MEDS: NORCO-7.5 PO PRN ×3 (11:44→21:56)
[2019-04-04] MEDS ORDERED: CARDIZEM 125 MG/D5W 125 MG/125 ML IVPB IV SCH (11:45)
[2019-04-04 12:13] LABS: HEMATOCRIT 40.4 % (37.0-47.0); HEMOGLOBIN 13.4 g/dL (12.0-16.0); MCH 31.8 PG (27-31); MCHC 33.2 g/dL (33-37); MCV 95.7 FL (81-99); MPV 10.5 FL (7.4-10.4); RBC 4.22 XMIL (4.2-5.4); RDW 13.7 % (11.5-14.5); WBC 10.93 X1000 (4.8-10.8)
--- NOTE | 2019-04-04 13:23 | HISTORY AND PHYSICAL ---
PRIMARY CARE PHYSICIAN: Dr. Faustin CHIEF COMPLAINT: Altered mental status that began yesterday. HISTORY OF PRESENTING ILLNESS: This is a 68-year-old female who presents to [facility] ER with family stating that she had had increased confusion, was alert to person but not place or time, was tearful and agitated on arrival, but it is noted that her brother who lived with her yesterday. Another son is at the bedside, and states that she has had shortness of breath, cough, and body aches for the past several days. Workup in the emergency room showed a chest x-ray with bilateral infiltrates with cardiomegaly. CT of the head showed no hemorrhage, but mild chronic microvascular ischemic changes. Her creatinine was mildly elevated at 1.2. ProBNP was 2704 so she is being admitted for further evaluation and treatment. PAST MEDICAL HISTORY: Atrial fibrillation, TIA, blood clots, hypertension, COPD, and chronic pain. PAST SURGICAL HISTORY: Heart stent placement x2 and a . FAMILY HISTORY: Reviewed and noncontributory. SOCIAL HISTORY: She currently lives with family. Smokes a pack of cigarettes a day, and has done so for approximately 50 years. Denies any alcohol or illicit drug use. ALLERGIES: She has no known drug allergies. HOME MEDICATIONS: We are going to hold the following: DuoNeb q.6 hours, albuterol inhaler p.r.n., Lasix 20 mg p.o. daily p.r.n., [place] 7.5 p.o. t.i.d., meloxicam 15 mg p.o. daily and spironolactone 25 mg p.o. daily. We will continue her Eliquis 5 mg p.o. b.i.d., aspirin 81 mg p.o. daily, Coreg 12.5 mg p.o. b.i.d., Klonopin 1 mg p.o. b.i.d. and Prinivil 10 mg p.o. daily. LABORATORY DATA: White blood cell count of 8.28, hemoglobin 12.6, hematocrit 39.4, and platelets 311,000. PT and INR of 15 and 1.12. Sodium of 142, potassium 4.4, chloride 107, CO2 22, BUN of 20, creatinine 1.2, and glucose 107. Cardiac enzyme was negative. ProBNP of 2704. Urinalysis was negative. Urine drug screen was presumptive positive for opiates and benzodiazepines. CT of the head showed no hemorrhage, mild chronic microvascular ischemic changes. Chest x-ray showed bilateral infiltrates and cardiomegaly, and the infiltrates were in the right middle lobe and left upper lobe. EKG showed atrial fibrillation with RVR at 119. REVIEW OF SYSTEMS: She denied any fever, chills, or blurred vision. She did have some body aches, shortness of breath, and productive cough, but had not seen the sputum. The patient was unable to tell me the color. Denied any abdominal pain, constipation, diarrhea, burning or hurting with urination. PHYSICAL EXAMINATION: On arrival, she had a temperature of 98.4 degrees, pulse of 114, respirations 16, blood pressure was 92/59 and saturating 97% on room air. Currently, blood pressure is up to 119/93. GENERAL: This is a 68-year-old female who is resting quietly in bed. HEENT: Normocephalic, atraumatic. Normal ENT inspection. Oropharynx and nares are clear. Eyes: Pupils are equal, round, and reactive to light and accommodation. Extraocular movements are intact. NECK: Normal inspection. Normal range of motion. LUNGS: Scattered wheezing and rhonchi throughout posterior lung gill. Equal lung expansion and chest wall movement noted. HEART: Irregular rate and rhythm. Remains in atrial fibrillation with RVR in the 1 teen's and 120s, but no murmurs, rubs or gallops. ABDOMEN: Soft, nontender, and nondistended. Bowel sounds are present x4 quadrants. MUSCULOSKELETAL: She has 5/5 strength x4 extremities. NEUROLOGICAL: The cranial nerves 2-12 appear grossly intact. ASSESSMENT: 1. Bilateral pneumonia. 2. Atrial fibrillation with rapid ventricular response. 3. Acute kidney injury. 4. Tobacco abuse. PLAN: She was admitted to the medical unit at [place]. We will place on telemetry, healthy heart diet, and O2 per protocol. We will place on Cardizem 30 mg p.o. q.6 hours, Lasix 40 mg IV q.12, Xopenex 0.63 mg q.4 hours, cefepime 2 g IV q.12, Linezolid 600 mg IV q.12. Continue home medications as previously identified. We will recheck a CBC and BMP in the morning. Further orders after seen by attending. We will check echocardiogram as the last one on file also was done over a year ago that showed an estimated ejection fraction at that time of 65% so we will recheck that now as well. Dictated by GENESIS Lancaster for Tab Ren MD cc: GENESIS Neal MD
[2019-04-04] MEDS ORDERED: HEPARIN 25,000 UNITS/D5W 25,000 UNIT/250 ML IV.SOLN IV SCH (15:30)
[2019-04-04] MEDS: ATROVENT NEB INH SCH ×3 (16:10→23:17)
[2019-04-04 16:12] LABS: BLOOD TYPE ARTERIAL; HCO3-(ACT) 25.5 mmoll (20.0-26.0); METHB 0.6 % (0.0-1.5); O2(CT) 17.5 mL/dL (15.0-23.0); O2HB 90.5 % (95.0-99.0); PCO2(98.6) 45 mmHg (35-45); PO2(98.6) 58 mmHg (60-100); SAMPLE BLOOD; THB 13.8 g/dL (11.5-17.4); pH(98.6) 7.38 (7.35-7.45)
[2019-04-04 16:15] LABS: ALLEN TEST YES; MODALITY ROOM AIR
--- NOTE | 2019-04-04 16:27 | ECHO REPORT ---
ORDER DATE: 04/04/2019 Technically suboptimal study. Very poor parasternal windows. MEASUREMENTS: Measurements cannot be commented on. SUMMARY OF THE 2-DIMENSIONAL IMAGIN. Aortic valve not well visualized. 2. Pulmonic valve not well visualized. 3. Mitral valve was normal. 4. Tricuspid valve was normal. 5. There is left atrial enlargement. 6. Normal left ventricular cavity size. Estimated ejection fraction of 55%. 7. Atrial fibrillation was noted. 8. There is mitral annular calcification. 9. There is left atrial and right atrial enlargement. 10. Doppler studies revealed mild mitral regurgitation. 11. Peak velocity across the aortic valve less than 2 m/sec. There is no aortic stenosis or regurgitation. 12. There is mild tricuspid regurgitation. Peak velocity across the tricuspid valve was 2.5 m/sec. Pulmonary artery systolic pressure of 35 mmHg. 13. There is no pericardial effusion. 14. A 1 cm mass was noted in the right atrium, which was mobile suggestive of clot. Cannot rule out a mass. Would recommend further evaluation by transesophageal echocardiogram and/or CAT scan to rule out clot in the venous system. cc: MD Talisha Sy CRNP
[2019-04-04] MEDS: LOVENOX SUBQ SCH (16:39)
[2019-04-04] MEDS ORDERED: NS 500 ML ONE (17:21)
--- NOTE | 2019-04-04 17:22 | EKG Report ---
Test Performed on : 04/04/2019 4:01:18 PM Test Reason : converted Blood Pressure : / mmHG Vent. Rate : 066 BPM Atrial Rate : 066 BPM P-R Int : 138 ms QRS Dur : 086 ms QT Int : 446 ms P-R-T Axes : 070 059 045 degrees QTc Int : 467 ms Sinus rhythm. with occasional premature ventricular complexes. and premature atrial complexes. Otherwise normal ECG When compared with ECG of 04-APR-2019 02:33, (Unconfirmed) Sinus rhythm. has replaced Atrial fibrillation. Nonspecific T wave abnormality, improved in Inferior leads Nonspecific T wave abnormality no longer evident in Anterolateral leads Unconfirmed Result
[2019-04-04] MEDS ORDERED: NS 500 ML IV ONE (17:24)
--- NOTE | 2019-04-04 18:21 | HISTORY AND PHYSICAL ---
ADDENDUM: The patient came in with shortness of breath. She is a 68-year-old female. She has atrial fibrillation, COPD, history of DVT. She had confusion. She was tearful. Her brother 2 days ago and he was her primary caregiver so she clearly had issues. Now she has had pneumonia previously. She was admitted in December and February for similar issues. It has been over a month since her last admission. She had pain issues then but she does have some pneumonia. She was admitted in December and she had COPD exacerbation and pneumonia at that time, so she clearly has not improved very much there. Her workup is consistent with pneumonia. There was some concern over atrial fibrillation with RVR, which she had a low-grade atrial fibrillation with RVR. But in any case, patient was planned for admission. We will do a hospital-acquired antibiotics which will be cefepime and Zyvox. She is in atrial fibrillation with RVR. We had to institute IV Cardizem. Currently her heart rate down in the 70s. We may have to adjust her Cardizem accordingly. We will get a Cardiology consult too. We will try to get a sputum culture. Will continue to follow closely. DISPOSITION: Pending her clinical status. This is a [id number] encounter note with GENESIS Lancaster. cc: Tab Ren MD
[2019-04-04] MEDS ORDERED: NEO-SYNEPHRINE 50 MG in NS 250 ML IV SCH (19:00)
[2019-04-04] MEDS: NS 1,000 ML IV ONE ×2 (19:00→19:54)
[2019-04-04] MEDS ORDERED: XOPENEX NEB ONE (19:55)
[2019-04-04] MEDS: MUCOMYST 20% INH SCH (20:06)
[2019-04-04 23:09] LABS: BILIRUBIN URINE NEGATIVE (NEGATIVE); BLOOD URINE NEGATIVE (NEGATIVE); CLARITY CLEAR (CLEAR); COLOR YELLOW; GLUCOSE URINE NEGATIVE (NEGATIVE); KETONE URINE NEGATIVE (NEGATIVE); LEUKOCYTES URINE NEGATIVE (NEGATIVE); NITRITE URINE NEGATIVE (NEGATIVE); PROTEIN URINE TRACE mg/dL (NEGATIVE); SP GRAVITY URINE 1.015; UROBILINOGEN URINE NORMAL
[2019-04-04 23:11] LABS: URINE BACTERIA 2+ /HFP; URINE CRYSTAL NONE SEEN /HPF; URINE EPITHELIAL CELLS <10 /HPF (<10); URINE SOURCE CATH; URINE WBC <10 /HPF (<10)
[2019-04-05] MEDS: LOVENOX SUBQ SCH ×2 (04:24→16:04)
[2019-04-05] MEDS: PRILOSEC PO SCH (06:01)
[2019-04-05 06:38] LABS: BASO# 0.03 X1000 (0.0-0.2); BASO% 0.3 % (0.0-0.8); EOS# 0.03 X1000 (0.0-0.7); EOS% 0.3 % (0.0-10.0); HEMATOCRIT 35.4 % (37.0-47.0); HEMOGLOBIN 11.2 g/dL (12.0-16.0); IMM GRAN# 0.02 X1000 (0.0-0.04); IMM GRAN% 0.2 % (0.0-0.5); LYMPH# 2.47 X1000 (1.2-3.4); LYMPH% 24.7 % (20.5-51.1); MCH 31.4 PG (27-31); MCHC 31.6 g/dL (33-37); MCV 99.2 FL (81-99); MONO# 1.47 X1000 (0.11-0.59); MONO% 14.7 % (1.7-9.3); MPV 11.3 FL (7.4-10.4); NEUT# 5.98 X1000 (1.4-6.5); NEUT% 59.8 % (42.2-75.2); PLT 258 X1000 (130-400); RBC 3.57 XMIL (4.2-5.4); RDW 13.9 % (11.5-14.5)
[2019-04-05 06:49] LABS: CALCIUM 8.2 mg/dL (8.8-10.2); CREATININE 1.2 mg/dL (0.5-0.9); POTASSIUM 3.8 mmol/L (3.5-5.1)
[2019-04-05] MEDS: ATROVENT NEB INH SCH ×4 (07:43→19:10)
[2019-04-05] MEDS: XOPENEX NEB INH SCH ×4 (07:44→23:10)
[2019-04-05] MEDS: MUCOMYST 20% INH SCH ×2 (07:44→19:10)
--- NOTE | 2019-04-05 08:02 | Diag Imaging Result Doc PS360 ---
EXAM: CT THORAX W/O CONTRAST HISTORY: lung mass TECHNIQUE: CT chest without contrast. COMPARISON: Recent plain film FINDINGS: No pleural effusions. The heart is enlarged. No thoracic aortic aneurysm. Prominent atherosclerosis. There calcified mediastinal and hilar lymph nodes with scattered granuloma. There are infiltrates in the lingular segment of the left upper lobe and in the right middle lobe. No consolidation. Limited images through the upper abdomen reveal a 6.7 cm left renal cyst. IMPRESSION: Bilateral infiltrates with cardiomegaly. This exam was performed using automated exposure control, adjustment of mA or kV according to patient size, and/or use of iterative reconstruction technique. Electronically signed by Tacho Jarvis 04/05/2019 8:00 AM
[2019-04-05] MEDS: COREG PO SCH ×2 (08:53→20:59)
[2019-04-05] MEDS: CARDIZEM PO SCH (08:53)
[2019-04-05] MEDS: ASPIRIN EC PO SCH (08:53)
[2019-04-05] MEDS: ZYVOX 600 MG/D5W 600 MG/300 ML IVPB IV SCH ×2 (09:43→21:01)
[2019-04-05] MEDS: MAXIPIME 2 GM in NS 100 ML IV SCH ×2 (09:43→21:01)
[2019-04-05] MEDS ORDERED: MAGNESIUM SULFATE 2 GM/S.W.I. 2 GM/50 ML IVPB IV ONE ×2 (09:57→12:00)
--- NOTE | 2019-04-05 11:18 | PROGRESS NOTE ---
DATE: 04/05/2019 SUBJECTIVE: The patient is complaining of a lot of pain in her back. She has kind of these chronic pain complaints. OBJECTIVE: Blood pressure is stable. Heart rate has actually lowered. She has a blood pressure of 100/51, heart rate 62, saturation is 100% on 2 L, temperature 98.7 degrees. No fever. Cardiovascular: Regular rate and rhythm. She is now sinus. Pulmonary: Decreased at the bases. GI: Soft, nontender, nondistended. Bowel sounds were positive. Laboratory Data: Her white count is 10, hemoglobin and hematocrit 11 and 35, platelets 258,000. Basic was normal except creatinine 1.2 and a magnesium of 1.4. PROBLEM LIST: 1. Acute respiratory failure secondary to pneumonia, possible pulmonary edema. We will continue empiric antibiotics. I am going to go ahead and get a pulmonary consult. 2. Atrial fibrillation with rapid ventricular response. She has now converted. I am going to leave her on her Coreg, perhaps at a bit of a lower dose just because she is a bit on the hypotensive side. We had to start pressors overnight but yesterday, we had to give her Cardizem and Coreg to get her heart rate under control. 3. Presumed pneumonia. She is on Zyvox and cefepime. We will continue that as tolerated. 4. Atrial mass versus thrombus. She has been on anticoagulation with Eliquis. Reportedly, I think she has gotten samples from Dr. Thompson. Cardiology, Dr. Carbone, had wanted her transferred because of a need for evaluation for a transesophageal echocardiogram, which we will pursue after cardiology evaluation. In any case, she is going to [facility] for evaluation for that. I am putting her in the intensive care unit because her blood pressure is tenuous at best. 5. She is pending treatment. DISPOSITION: Pending her clinical status. Dr. Faustin will take over. I have discussed the case with him. He is her doctor primarily. cc: MD Alexis Sam MD [facility]
[2019-04-05] MEDS: ZOFRAN IV PRN ×3 (11:30→21:03)
[2019-04-05] MEDS: MORPHINE IV PRN ×3 (12:03→20:58)
[2019-04-05] MEDS ORDERED: NEO-SYNEPHRINE 50 MG in NS 250 ML IV SCH (13:00)
[2019-04-05] MEDS: D5 1/2 NS 1,000 ML IV SCH (18:06)
--- NOTE | 2019-04-05 20:12 | PROGRESS NOTE ---
DATE: 04/05/2019 SUBJECTIVE: Ms. Olivas says she was very upset with her brother's , started getting short of breath and came to the emergency room. ASSESSMENT AND PLAN: 1. She seems to have bilateral infiltrates, and echocardiogram shows that there could be a clot in the right atrium. She is going to get a transesophageal echocardiogram tomorrow. 2. For pneumonia she is on Zyvox as well as cefepime. We will continue the current management on her. cc: Alexis Faustin MD
--- NOTE | 2019-04-05 21:10 | CONSULTATION ---
DATE OF CONSULTATION: 04/05/2019 IMPRESSION: 1. 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 2. Atherosclerotic coronary disease with previous coronary angioplasty/stenting in the past. Last cardiac catheterization study performed last year demonstrated chronic right coronary occlusion with well-established collaterals and patent stent in left coronary system. 3. Status post previous pulmonary embolus in the past. Patient continues on long-term anticoagulation. 4. Anticoagulation. 5. Transient ischemic attack. 6. Hypertension. 7. Chronic obstructive pulmonary disease. RECOMMENDATIONS: Further evaluation with transesophageal echocardiogram discussed with the patient. We will schedule ELODIA for a.m. tomorrow. HISTORY: This 68-year-old white female with past history of atherosclerotic coronary disease, previous pulmonary embolus, atrial fibrillation, hypertension, and COPD was initially admitted because of recent problems with confusion. Her brother three days ago due to advanced cirrhosis. She has been primary caregiver for some time now. She is obviously very upset. On the day following his , she began to have problems with confusion. She does not have much recollection of what went on. She does recall feeling fatigued and tired. There has been no chest pain. She was seen in the emergency room at [facility]. ProBNP was 20,704. She was admitted for further evaluation. Part of her workup at [facility] included echocardiography. Parasternal windows were technically difficult. There appeared to be a right atrial mass, and per my review this possibly may represent a myxoma. She was subsequently transferred over to [facility] for transesophageal echocardiography. PAST MEDICAL HISTORY: 1. Atherosclerotic coronary disease as outlined above. 2. Previous pulmonary embolus. 3. Transient ischemic attack. 4. Atrial fibrillation. 5. Hypertension. 6. Chronic obstructive pulmonary disease. PAST SURGICAL HISTORY: Includes previous section. ALLERGIES: She has no known drug allergies. MEDICATIONS PRIOR TO ADMISSION: As listed. It is noteworthy that she has been on long-term anticoagulation with Eliquis. SOCIAL HISTORY: She lives with her family. She smokes a pack of cigarettes daily. She does not use alcohol. FAMILY HISTORY: Positive for coronary disease. REVIEW OF SYSTEMS: Pulmonary: Noncontributory beyond history of present illness. Gastrointestinal: Noncontributory beyond history of present illness. Constitutional: Negative for fever. Otherwise noncontributory beyond history of present illness. Remainder of review of systems negative/noncontributory beyond history of present illness with 14 total systems reviewed. PHYSICAL EXAMINATION: General: This is a pleasant, older white female in no distress. Vital signs: Blood pressure 120/52, heart rate 63, oxygen saturation 97%. HEENT Exam: Extraocular movements appear intact. Mucous membranes are moist. Neck: Supple without jugular venous distention. There are no carotid bruits. Chest: Clear to auscultation bilaterally. Cardiac Exam: Reveals an irregular rate and rhythm without appreciable murmur or gallop. Abdomen: Soft. Bowel sounds normal. Extremities: Without edema. Neurologic exam: Reveals her to be alert and fully oriented. Speech is fluent. She moves all 4 extremities equally well. Skin: Warm and dry. Psychiatric Exam: Reveals her mood to be appropriate. DIAGNOSTICS: Twelve lead EKG demonstrates atrial fibrillation with heart rate of 119 beats per minute. Nonspecific T-wave abnormality demonstrated. LABORATORY DATA: Includes a white blood cell count of 10.0, hematocrit 35.4, hemoglobin 11.2, platelet count 258,000. Sodium 144, potassium 3.8, chloride 108, carbon dioxide 22, BUN 18, creatinine 1.2, magnesium 1.4. Urine drug screen on admission was is positive for opiates and benzodiazepines. cc: MD Alexis Cisneros MD
[2019-04-05] MEDS: SODIUM CHLORIDE 0.9% INJ PRN (23:35)
[2019-04-05] MEDS: PHENERGAN IV PRN (23:35)
--- NOTE | 2019-04-06 00:46 | CONSULTATION ---
DATE OF CONSULTATION: 04/05/2019 REQUESTING PROVIDER: Dr. Billy Ren. REASON FOR CONSULTATION: Respiratory failure. HISTORY OF PRESENT ILLNESS: This is a 68-year-old, female with a medical history of COPD with ongoing tobacco abuse, atrial fibrillation, coronary artery disease, carotid arterial disease, gastroesophageal reflux disease, esophageal stricture, hypertension, hyperlipidemia, chronic pain, history of transient ischemic attack, history of blood clots, and depression. She presented to the [facility] on 04/03/2019 with acute altered mental status. Further workup in the ER revealed bilateral pneumonia, atrial fibrillation with rapid ventricular response, and acute kidney injury. She was initially admitted to the [facility]. Echocardiogram Doppler on 04/04/2019 revealed a 1 cm mass in the right atrium suggestive of clot. She also developed hypotension on the evening of 04/04/2019, and had been treated with Esteban- Synephrine. She was transferred to our facility ICU today for a Pulmonary consult and a transesophageal echocardiogram evaluation per life insurance agent. At the time of my examination, patient is tearful, emotional, and confused at times. She is complaining of chest pain and nausea. Patient's youngest sister is at the bedside. She reports that the patient barely eats or drinks after their brother on 04/02/2019. She also has shortness of breath, some cough, and body aches in the last several days. She has no fever, chills, dizziness, wheezing, abdominal pain, constipation, diarrhea, or urinary discomfort. PAST MEDICAL HISTORY: 1. COPD with ongoing tobacco abuse. Follow up with family doctor. 2. Ongoing tobacco abuse. 3. Atrial fibrillation. 4. Coronary artery disease status post myocardial infarction and stenting. 5. Carotid artery disease. Scheduled for carotid endarterectomy in the near future. 6. Gastroesophageal reflux disease. 7. Esophageal stricture. 8. Hypertension. 9. Hyperlipidemia. 10. Chronic pain. 11. History of transient ischemic attack. 12. History of blood clots with left lower extremity DVT and bilateral pulmonary emboli on 11/12/2016, on Eliquis since then. 13. Depression. SOCIAL HISTORY: Patient currently lives with her family. Patient's youngest sister at the bedside reports that their brother, who also lived with the patient, on 04/02/2019 with alcoholism- related liver failure. The patient smokes a pack per day for over 50 years. She has no history of alcohol or illicit drug use. FAMILY HISTORY: Noncontributory. ALLERGIES: No known drug allergies. REVIEW OF SYSTEMS: A 10-point review of systems was conducted and the pertinent's listed within the HPI, otherwise noncontributory. PHYSICAL EXAMINATION: Vital Signs: Temperature 98.7 degrees, blood pressure 100/51, pulse 62, respiratory rate 16, oxygen saturation 100% on nasal cannula at 2 L. General: Patient is tearful and emotional at this time. She is complaining of chest pain and nausea. Patient's younger sister is at the bedside. HEENT: Atraumatic. Trachea midline. Mucosa pink and slightly dry. Respiratory: Even and unlabored. Symmetrical excursion. Auscultation reveals diminished breathing sounds bibasilarly. No wheezing noted anteriorly. Cardiovascular: Irregularly irregular. S1, S2 noted. Gastrointestinal: Bowel sounds normoactive in all 4 quadrants. Soft, nontender, nondistended. Extremities: No pedal edema. No cyanosis. No clubbing. Neurologic: Alert and oriented x3. Speech fluent. Follows commands. LAB DATA: White blood cells 10.00, hemoglobin 11.2, hematocrit 35.4, platelet 258,000. Sodium 144, potassium 3.8, chloride 108, carbon dioxide 22, BUN 18, creatinine 1.2. Glucose 288. IMAGING DATA: Chest CT revealed bibasilar infiltrates with cardiomegaly and limited imaging through the upper abdomen revealed a 6.7 left renal cyst. ASSESSMENT: This is a 68-year-old female with a medical history of COPD with ongoing tobacco abuse, atrial fibrillation, coronary artery disease, carotid arterial disease, gastroesophageal reflux disease, esophageal stricture, hypertension, hyperlipidemia, chronic pain, transient ischemic attack, blood clots, and depression. She has been admitted with bilateral pneumonia, atrial fibrillation with rapid ventricular response, acute kidney injury and atrial mass versus thrombus. 1. Acute hypoxic respiratory failure. 2. Bilateral pneumonia. 3. Chronic obstructive pulmonary disease with ongoing tobacco abuse. 4. Atrial fibrillation with rapid ventricular response. 5. Acute kidney injury. PLAN: 1. Continue supplemental oxygen as needed. 2. Continue antibiotic and bronchodilators. 3. Follow up with chest x-ray, CBC, BMP, ABGs, sputum culture, urine culture, and blood culture. 4. Educate patient on the importance of smoking cessation and highly recommend patient to quit smoking. 5. Dr. Thompson is on board. 6. Continue GI and DVT prophylaxis. 7. Further recommendations pending hospital course. Thank you for the courtesy of this consult. Dictated by GENESIS Celaya for Toirto Mcallister MD cc: GENESIS Celaya MD Amit V. Vora, MD [facility]
[2019-04-06] MEDS: XOPENEX NEB INH SCH ×5 (02:13→15:24)
[2019-04-06] MEDS: ATROVENT NEB INH SCH ×4 (02:13→15:25)
[2019-04-06] MEDS: MORPHINE IV PRN ×4 (03:25→21:15)
[2019-04-06] MEDS: LOVENOX SUBQ SCH ×2 (03:26→16:12)
[2019-04-06 04:52] LABS: ALLEN TEST YES; BE -0.7 mmoll (-3.0-3.0); BLOOD TYPE ARTERIAL; HCO3-(ACT) 24.4 mmoll (20.0-26.0); O2(CT) 15.4 mL/dL (15.0-23.0); O2HB 96.1 % (95.0-99.0); PCO2(98.6) 44 mmHg (35-45); PO2(98.6) 95 mmHg (60-100); SAMPLE BLOOD; THB 11.3 g/dL (11.5-17.4); pH(98.6) 7.36 (7.35-7.45)
[2019-04-06 04:53] LABS: MODALITY CANNULA
[2019-04-06 04:56] LABS: RBC 3.74 XMIL (4.2-5.4); WBC 9.68 X1000 (4.8-10.8)
[2019-04-06 04:57] LABS: BASO# 0.04 X1000 (0.0-0.2); BASO% 0.4 % (0.0-0.8); EOS# 0.06 X1000 (0.0-0.7); EOS% 0.6 % (0.0-10.0); HEMATOCRIT 36.2 % (37.0-47.0); HEMOGLOBIN 11.7 g/dL (12.0-16.0); IMM GRAN# 0.02 X1000 (0.0-0.04); IMM GRAN% 0.2 % (0.0-0.5); MCH 31.3 PG (27-31); MCHC 32.3 g/dL (33-37); MCV 96.8 FL (81-99); MONO# 1.32 X1000 (0.11-0.59); MONO% 13.6 % (1.7-9.3); MPV 11.4 FL (7.4-10.4); NEUT# 5.34 X1000 (1.4-6.5); NEUT% 55.2 % (42.2-75.2); PLT 228 X1000 (130-400); RDW 13.4 % (11.5-14.5)
[2019-04-06 05:22] LABS: CALCIUM 8.4 mg/dL (8.8-10.2); POTASSIUM 3.4 mmol/L (3.5-5.1)
[2019-04-06] MEDS: PRILOSEC PO SCH (06:19)
--- NOTE | 2019-04-06 06:36 | Diag Imaging Result Doc PS360 ---
CHEST-1 VIEW - 04/06/2019 INDICATION: SOB COMPARISON: 04/04/2019 FINDINGS: There has been decrease in the focal infiltrate in the right lung base. Stable cardiomegaly and pulmonary vascular congestion. Stable infiltrate or epicardial fat-pad at the left lung base. No pneumothorax or pleural effusion. IMPRESSION: Decrease in the focal infiltrate at the right lung base that is most likely in the right middle lobe. No new abnormality. Electronically signed by Mervin Hernandez 04/06/2019 6:34 AM
[2019-04-06] MEDS: MUCOMYST 20% INH SCH ×2 (07:58→21:36)
[2019-04-06] MEDS: ASPIRIN EC PO SCH (08:20)
[2019-04-06] MEDS: COREG PO SCH ×3 (08:20→21:15)
[2019-04-06] MEDS: SODIUM CHLORIDE 0.9% INJ PRN ×2 (08:28→16:18)
[2019-04-06] MEDS: PHENERGAN IV PRN ×2 (08:28→16:18)
[2019-04-06] MEDS ORDERED: LABETALOL IV PRN (08:29)
[2019-04-06] MEDS: NORCO-10 PO SCH ×3 (08:41→18:09)
[2019-04-06] MEDS: COZAAR PO SCH ×2 (08:45→21:16)
[2019-04-06] MEDS: NORVASC PO SCH (08:45)
[2019-04-06] MEDS: ALDACTONE PO SCH (08:45)
--- NOTE | 2019-04-06 08:51 | PROGRESS NOTE ---
DATE: 04/06/2019 Ms. Olivas is still not feeling well. She is recovering from bilateral pneumonia. She has a right arterial blood clot or possible mass. She is going to get the ELODIA studies done today. Blood pressure is somewhat high. We will give her Norvasc by mouth when she is allowed to. In the meantime, we will discontinue her carvedilol and losartan. We will also give her labetalol IV p.r.n. cc: Alexis Faustin MD
[2019-04-06] MEDS ORDERED: XYLOCAINE 4% TOPICAL SOLUTION ONE (10:14)
[2019-04-06] MEDS ORDERED: SODIUM CHLORIDE 0.9% 10 ML ONE (10:14)
[2019-04-06] MEDS ORDERED: XYLOCAINE 2% VISCOUS ONE (10:14)
[2019-04-06] MEDS ORDERED: NS 1,000 ML ONE (10:21)
[2019-04-06] MEDS ORDERED: CLAVE TWINSITE 32 IN 11959 ONE (10:21)
[2019-04-06] MEDS ORDERED: ANESTHESIA PB SET 88 IN 5742 ONE (10:21)
[2019-04-06] MEDS: DUONEB (A & A) INH SCH ×3 (10:30→21:36)
[2019-04-06] MEDS ORDERED: DIPRIVAN 1% ONE (10:41)
[2019-04-06] MEDS ORDERED: XYLOCAINE-MPF 1% 5 ML ONE (10:42)
[2019-04-06] MEDS: D5 1/2 NS 1,000 ML IV SCH (12:09)
[2019-04-06] MEDS: MAXIPIME 2 GM in NS 100 ML IV SCH ×2 (12:09→21:14)
[2019-04-06] MEDS: ZYVOX 600 MG/D5W 600 MG/300 ML IVPB IV SCH (13:02)
[2019-04-06] MEDS: ZOFRAN IV PRN (20:01)
--- NOTE | 2019-04-06 21:15 | PROGRESS NOTE ---
DATE: 04/06/2019 SUBJECTIVE: Patient had transesophageal echocardiography performed this morning. She continues to report feeling progressively better. There has been no shortness of breath or chest pain. She has had modest cough with no significant sputum production. OBJECTIVE: Vital Signs: Blood pressure 167/92, heart rate 68, oxygen saturation 98% on nasal cannula oxygen at 2 L/minute. Neck: There is no significant jugular venous distention. Chest: Clear to auscultation bilaterally. Cardiac: Irregular rate and rhythm without appreciable murmur or gallop. There is no evidence of peripheral edema. LABORATORY DATA: Includes a white blood cell count of 9.68, hematocrit 36.2, hemoglobin 11.7, platelet count 228,000. Sodium 137, potassium 3.4, chloride 103, carbon dioxide 28, BUN 13, creatinine 1.0. Transesophageal echocardiography was reviewed with specific attention to right atrium anatomy. Patient demonstrates prominent lipomatous interatrial septum and a prominent manuel terminalis. It actually appears that the fat in the interatrial septum extends over into the manuel terminalis, rendering it very prominent in appearance. There is no pathologic mass evident in the right atrium. Left ventricular ejection fraction normal. IMPRESSION: 1. Right atrial mass suggested on transthoracic echocardiography. This actually appears to be a prominent manuel terminalis, essentially benign. 2. Current admission following presentation with weakness and confusion as well as relatively low blood pressure. It is noteworthy that she took extra Ativan on top of Lortab due to significant grief related to her brother's this past Wednesday. This may have been a contributing factor. 3. Abnormal chest x-ray. The patient has had previous scarring noted on chest x-ray in the past. 4. Chronic atrial fibrillation. 5. Transient ischemic attack. 6. Status post previous pulmonary embolus in the past. 7. Chronic obstructive pulmonary disease. 8. Hypertension. RECOMMENDATIONS: 1. Continue current cardiovascular regimen unchanged. 2. Agree with addition of amlodipine to current antihypertensive regimen. If warranted, further increase in losartan might be considered. 3. Patient clinically stable from a cardiovascular standpoint to go home soon. I will see further on an as needed basis. cc: MD Alexis Cisneros MD
[2019-04-07] MEDS: ZYVOX 600 MG/D5W 600 MG/300 ML IVPB IV SCH ×2 (01:20→12:17)
[2019-04-07] MEDS: DUONEB (A & A) INH SCH ×5 (03:05→22:33)
[2019-04-07] MEDS: LOVENOX SUBQ SCH ×2 (04:08→16:35)
[2019-04-07] MEDS: D5 1/2 NS 1,000 ML IV SCH ×2 (04:08→20:31)
[2019-04-07] MEDS: MORPHINE IV PRN ×2 (04:35→20:39)
[2019-04-07] MEDS: PHENERGAN IV PRN (04:43)
[2019-04-07 04:56] LABS: ALLEN TEST YES; BE -0.5 mmoll (-3.0-3.0); BLOOD TYPE ARTERIAL; HCO3-(ACT) 24.6 mmoll (20.0-26.0); METHB 0.7 % (0.0-1.5); MODALITY CANNULA; O2(CT) 13.6 mL/dL (15.0-23.0); PCO2(98.6) 43 mmHg (35-45); PO2(98.6) 120 mmHg (60-100); SAMPLE BLOOD; SAO2 99.5 % (95.0-100.0); THB 9.8 g/dL (11.5-17.4); pH(98.6) 7.37 (7.35-7.45)
[2019-04-07] MEDS: PRILOSEC PO SCH (06:05)
--- NOTE | 2019-04-07 06:29 | Diag Imaging Result Doc PS360 ---
CHEST-1 VIEW - 04/07/2019 INDICATION: SOB COMPARISON: 04/06/2019 FINDINGS: Stable mild cardiomegaly and pulmonary vascular congestion. Stable small focal infiltrate in the right lung base. No new infiltrates. No large pleural effusion. IMPRESSION: No change from prior. Electronically signed by Mervin Hernandez 04/07/2019 6:26 AM
[2019-04-07] MEDS: ALDACTONE PO SCH (08:06)
[2019-04-07] MEDS: COZAAR PO SCH ×2 (08:06→20:40)
[2019-04-07] MEDS: ASPIRIN EC PO SCH (08:06)
[2019-04-07] MEDS: COREG PO SCH ×2 (08:06→20:40)
[2019-04-07] MEDS: NORVASC PO SCH (08:07)
[2019-04-07] MEDS: NORCO-10 PO SCH ×3 (08:07→16:34)
[2019-04-07] MEDS: MAXIPIME 2 GM in NS 100 ML IV SCH ×2 (09:10→20:46)
[2019-04-07] MEDS: MUCOMYST 20% INH SCH ×2 (09:23→22:33)
--- NOTE | 2019-04-07 10:40 | PROGRESS NOTE ---
DATE: 04/07/2019 Ms. Olivas is in about the same general condition. Vital signs are stable now. She is on IV antibiotics as well as the subcutaneous Lovenox. Her general condition is stable. She had a ELODIA done yesterday which we do not have the results. We have chest x-ray results, and it has not changed. Overall condition is unchanged. We will continue with the current management on her. We can transfer her to the regular floor now. cc: Alexis Faustin MD
[2019-04-07] MEDS: ATIVAN IV PRN (11:05)
--- NOTE | 2019-04-07 23:37 | Transesophageal Echocardiogram ---
DATE: 04/06/2019 INDICATION: Right atrial mass. PROCEDURE IN DETAIL: Ms. Olivas was brought to the catheterization laboratory in the fasting state. Informed consent was obtained. Prepped in usual fashion with the viscous lidocaine and Hurricaine spray. ELODIA probe was passed without difficulty after appropriate sedation. Images were obtained in multiple planes. We could not do a transgastric study secondary to inability to pass the probe into the stomach. She has a history of esophageal strictures and could possibly represent a stricture. At the conclusion of procedure, the probe was removed. No apparent complications. FINDINGS: 1. The right atrium appears normal in size. There is a mass in the superior aspect of the right atrium that appears most likely a prominent manuel terminalis. There is no clear evidence of shunting across the interatrial septum with injection of agitated saline contrast. There is a prominent lipomatous hypertrophy of the interatrial septum. 2. No clear evidence of tricuspid regurgitation, but it was difficult to visualize secondary to the interference from the septum. 3. Normal right ventricular size and systolic function. 4. No obvious pulmonic insufficiency on poor views of the pulmonic valve. 5. There is no obvious clot visualized in the left atrium or left atrial appendage. It appears normal in size. 6. No mitral prolapse. Mild mitral regurgitation. 7. Normal left ventricular size. Normal left ventricular systolic function with estimated ejection fraction greater 55%. 8. Aortic valve opened well, it is trileaflet. No evidence of stenosis or insufficiency. 9. The aorta was poorly visualized, but there is no evidence of dilatation. 10. No pericardial effusion seen. cc: MD Karl Mcguire MD Amit V. Vora, MD
[2019-04-08] MEDS: ZYVOX 600 MG/D5W 600 MG/300 ML IVPB IV SCH ×2 (01:05→13:35)
[2019-04-08] MEDS: ATIVAN IV PRN (01:06)
[2019-04-08] MEDS: MORPHINE IV PRN ×3 (01:11→11:26)
[2019-04-08] MEDS: DUONEB (A & A) INH SCH ×4 (03:44→22:32)
[2019-04-08] MEDS ORDERED: LASIX IV ONE (04:13)
[2019-04-08] MEDS ORDERED: CARDIZEM PO ONE (04:13)
[2019-04-08] MEDS: LOVENOX SUBQ SCH (04:59)
[2019-04-08] MEDS: PRILOSEC PO SCH (05:00)
[2019-04-08 05:55] LABS: BLOOD TYPE ARTERIAL; SAMPLE BLOOD
[2019-04-08 05:56] LABS: ALLEN TEST YES; BE 1.9 mmoll (-3.0-3.0); HCO3-(ACT) 26.4 mmoll (20.0-26.0); METHB 0.4 % (0.0-1.5); O2(CT) 16.3 mL/dL (15.0-23.0); O2HB 97.8 % (95.0-99.0); PCO2(98.6) 25 mmHg (35-45); PO2(98.6) 122 mmHg (60-100); SAO2 100.8 % (95.0-100.0); THB 11.7 g/dL (11.5-17.4)
[2019-04-08 05:57] LABS: MODALITY ROOM AIR; pH(98.6) 7.57 (7.35-7.45)
--- NOTE | 2019-04-08 07:02 | Diag Imaging Result Doc PS360 ---
EXAM: CHEST-1 VIEW HISTORY: SOB TECHNIQUE: Portable chest single view COMPARISON: 04/07/2019 FINDINGS: The lungs are well expanded. The heart is mildly enlarged. There are infiltrates in the right lower lobe. Mild pulmonary edema. No pleural effusions identified. IMPRESSION: Mild interval worsening. Electronically signed by Tacho Jarvis 04/08/2019 6:59 AM
[2019-04-08 08:09] LABS: AGAP 14; BUN 8 mg/dL (8-22); CALCIUM 9.4 mg/dL (8.8-10.2); CHLORIDE 102 mmol/L (98-107); COSMO 282; CREATININE 0.8 mg/dL (0.5-0.9); ESTIMATED GFR > 60; GLUCOSE 116 mg/dL (70-104); POTASSIUM 3.1 mmol/L (3.5-5.1); SODIUM 142 mmol/L (136-145); TCO2 26 mmol/L (25-35)
[2019-04-08] MEDS: NORVASC PO SCH (08:33)
[2019-04-08] MEDS: COREG PO SCH ×2 (08:33→22:38)
[2019-04-08] MEDS: ALDACTONE PO SCH (08:34)
[2019-04-08] MEDS: ASPIRIN EC PO SCH (08:34)
[2019-04-08] MEDS: COZAAR PO SCH ×2 (08:43→22:38)
[2019-04-08] MEDS: NORCO-10 PO SCH ×3 (08:46→16:42)
[2019-04-08] MEDS: MAXIPIME 2 GM in NS 100 ML IV SCH ×2 (08:56→22:38)
[2019-04-08] MEDS: MUCOMYST 20% INH SCH ×2 (10:47→22:32)
--- NOTE | 2019-04-08 23:17 | PROGRESS NOTE ---
DATE: 04/08/2019 SUBJECTIVE: A 68-year-old white female basically admitted to the hospital with multiple medical problems. Covering for Dr. Faustin. She was admitted on 04/04/2019. The patient is not offering any complaints. Oakley was placed. REVIEW OF SYSTEMS: None reported. Patient had a ELODIA was done. No cough. Not in respiratory distress. PAST MEDICAL HISTORY: Reviewed. PAST SURGICAL HISTORY: Reviewed. MEDICATIONS: Reviewed. ALLERGIES: Codeine. OBJECTIVE/EXAMINATION: Vital signs: Temperature 98.3, blood pressure is 118/53, room air 93%. general: Is a little bit heavy set. HEENT: Within normal limits. Chest: Bilateral air entry. Heart: Sounds are regular, distant. Abdomen: Belly is soft, obese. Extremities: No peripheral edema. Cyanosis. Neuro: No obvious neurological deficits. INVESTIGATIONS: ABG: pH is 7.57, pCO2 is 25, PO2 is 122. Sodium 142, potassium 3.1, chloride 102, and glucose 116. Procalcitonin levels were normal. Urinalysis is clear. Urine, blood cultures are negative. Chest x-ray reviewed, it looks like cardiomegaly, mild CHF. Transesophageal echo: Right atrium normal size. There is no mass, it is prominent manuel terminalis, no shunt. There is a prominent lipomatosis hypertrophy of interatrial septum. Ejection fraction 55%. ASSESSMENT AND PLAN: 1. Shortness of breath, probably due to paroxysmal atrial fibrillation and diastolic heart failure, currently stable. She is running normal white cell count. No fever. Transesophageal echocardiogram is negative for blood clot. Plan of care, we will change the Lovenox 40 mg subcu q.12. Discontinue Oakley, and I am going to adjust antibiotics. We will discontinue Zyvox and continue incentive spirometry. 2. Hypertensive heart disease. Continue on Norvasc, Coreg. 3. Chronic pain, on [place]. 4. EKG showed normal sinus with PVCs. Explained to the patient. Will follow up. LEVEL OF DOCUMENTATION: 35 minutes. cc: MD Alexis Sung MD
[2019-04-09] MEDS: PRILOSEC PO SCH (06:10)
[2019-04-09 07:21] LABS: BASO# 0.03 X1000 (0.0-0.2); BASO% 0.4 % (0.0-0.8); EOS# 0.21 X1000 (0.0-0.7); EOS% 2.9 % (0.0-10.0); HEMATOCRIT 37.8 % (37.0-47.0); HEMOGLOBIN 12.1 g/dL (12.0-16.0); LYMPH# 1.99 X1000 (1.2-3.4); LYMPH% 27.1 % (20.5-51.1); MCH 30.4 PG (27-31); MONO# 0.97 X1000 (0.11-0.59); MONO% 13.2 % (1.7-9.3); MPV 11.2 FL (7.4-10.4); NEUT# 4.13 X1000 (1.4-6.5); NEUT% 56.4 % (42.2-75.2); PLT 211 X1000 (130-400); RBC 3.98 XMIL (4.2-5.4); RDW 13.6 % (11.5-14.5); WBC 7.33 X1000 (4.8-10.8)
--- NOTE | 2019-04-09 07:29 | Diag Imaging Result Doc PS360 ---
EXAM: CHEST-1 VIEW HISTORY: SOB TECHNIQUE: Portable chest single view COMPARISON: 04/08/2019 FINDINGS: The heart is enlarged and there is mild pulmonary edema. There are infiltrates in the right lung base. Likely tiny pleural effusions. Overall the infiltrates in the right base are slightly more prominent than on the prior study. IMPRESSION: Mild interval worsening. Electronically signed by Tacho Jarvis 04/09/2019 7:27 AM
[2019-04-09 07:43] LABS: TOTAL BILIRUBIN 0.43 mg/dL (0.20-1.00); TOTAL PROTEIN 6.4 g/dL (6.3-8.3)
[2019-04-09 07:44] LABS: ALB/GLOB RATIO 1.2; ALBUMIN 3.5 g/dL (3.5-5.0)
[2019-04-09] MEDS: ASPIRIN EC PO SCH (08:38)
[2019-04-09] MEDS: ALDACTONE PO SCH (08:38)
[2019-04-09] MEDS: LOVENOX SUBQ SCH (08:39)
[2019-04-09] MEDS: COZAAR PO SCH (08:39)
[2019-04-09] MEDS: COREG PO SCH ×2 (08:39→20:54)
[2019-04-09] MEDS: MORPHINE IV PRN ×3 (08:39→17:56)
[2019-04-09] MEDS: NORVASC PO SCH (08:39)
[2019-04-09] MEDS: PHENERGAN IV PRN ×2 (08:51→17:56)
[2019-04-09] MEDS: SODIUM CHLORIDE 0.9% INJ PRN ×2 (08:52→17:56)
[2019-04-09] MEDS: NORCO-10 PO SCH ×4 (08:52→20:58)
[2019-04-09] MEDS: MAXIPIME 2 GM in NS 100 ML IV SCH ×2 (09:50→20:55)
[2019-04-09] MEDS ORDERED: POTASSIUM CHLORIDE 40 MEQ/SWI 40 MEQ/100 ML IVPB IV ONE (10:29)
[2019-04-09] MEDS ORDERED: LASIX IV ONE (10:30)
[2019-04-09] MEDS ORDERED: POTASSIUM CHLORIDE 20 MEQ/SWI 20 MEQ/100 ML IVPB IV SCH (11:00)
--- NOTE | 2019-04-09 11:14 | CARDIOLOGY PROGRESS NOTE ---
DATE: 04/09/2019 CHIEF COMPLAINT: Shortness of breath, irregular heartbeat. SUBJECTIVE: Ms. Olivas has had bouts of intermittent atrial fibrillation. Her blood pressure is going up. She is feeling a little better this morning. OBJECTIVE: Blood pressure is 171/96, pulse rate has been changing from 104 to 66 and then 123, right now is down to 80. Respiratory rate is 22. Temperature is 91. She is awake, alert, in no distress. HEENT: Unremarkable. Chest: Clear to auscultation and percussion. Heart sounds are irregularly irregular. Abdomen: Soft, obese, nontender. No masses. No hepatomegaly. Extremities showed good pulses. No peripheral edema. Neurologic: Follows commands. Moves all 4 extremities. IMPRESSION: 1. The patient presented with paroxysmal atrial fibrillation, dyspnea, probably diastolic dysfunction. 2. Hypokalemia. 3. Obesity. 4. History of coronary heart disease. 5. History of previous pulmonary embolus. RECOMMENDATIONS: At this time, we will keep her on diltiazem 60 every 8 hours. I am going to add some ramipril to her regimen. We will see how she does. Potassium needs to be replaced. I believe Dr. Land has ordered some potassium. We will follow her along. cc: MD Alexis Valenzuela MD
[2019-04-09] MEDS: ALTACE PO SCH ×2 (11:27→20:55)
[2019-04-09] MEDS: DUONEB (A & A) INH SCH ×3 (12:07→22:15)
[2019-04-09] MEDS: MUCOMYST 20% INH SCH ×2 (12:07→22:15)
[2019-04-09] MEDS ORDERED: KLOR-CON PO ONE (12:37)
[2019-04-09] MEDS: CARDIZEM PO SCH ×2 (13:28→20:54)
[2019-04-09] MEDS: ZOFRAN IV PRN (13:29)
--- NOTE | 2019-04-09 14:49 | PROGRESS NOTE ---
DATE: 04/09/2019 SUBJECTIVE: The patient is feeling better out of the bed. REVIEW OF SYSTEMS: Intermittent palpitations. OBJECTIVE: Temperature is 98 degrees, heart rate is intermittently 120, blood pressure is stable. The patient is out of the bed. Chest has bilateral air entry. Heart sounds are regular. No edema noted. Oakley was discontinued. INVESTIGATIONS: CBC: White cell count 7.3, hematocrit 37, platelets 211,000. SMA-7: Sodium 140, potassium 3.0, BUN 17, creatinine 1.0. LFTs were normal. Procalcitonin is normal. ASSESSMENT AND PLAN: 1. Shortness of breath, intermittent palpitations due to paroxysmal atrial fibrillation. Echocardiography and ELODIA did not show any blood clot, and I changed to the Lovenox 40 subcutaneous daily. 2. Diastolic dysfunction. Continue on Coreg and Cardizem. 3. Hypokalemia. Replace the potassium. 4. Intravenous Lasix 1 time. 5. Procalcitonin is normal. It looks like mostly heart failure. 6. Discontinue IV antibiotics. 7. Dr. Carbone added Altace for diastolic dysfunction. 8. Oakley was discontinued. 9. Repeat the chest x-ray in the morning. LEVEL OF DOCUMENTATION: 25 minutes. cc: MD Alexis Sung MD
[2019-04-09] MEDS: NICODERM PATCH TD SCH (17:57)
[2019-04-10] MEDS: DUONEB (A & A) INH SCH ×5 (03:35→23:31)
[2019-04-10] MEDS: CARDIZEM PO SCH ×3 (06:18→19:05)
[2019-04-10] MEDS: PRILOSEC PO SCH (06:19)
--- NOTE | 2019-04-10 07:28 | Diag Imaging Result Doc PS360 ---
EXAM: CHEST-1 VIEW HISTORY: SOB TECHNIQUE: Portable chest single view COMPARISON: 04/09/2019 FINDINGS: The heart remains enlarged. Infiltrates in the right base persist. Interval decrease in the vascular distention. No pleural effusions identified. IMPRESSION: Decreased pulmonary edema. Electronically signed by Tacho Jarvis 04/10/2019 7:26 AM
[2019-04-10] MEDS: ASPIRIN EC PO SCH (08:15)
[2019-04-10] MEDS: LOVENOX SUBQ SCH (08:15)
[2019-04-10] MEDS: ALTACE PO SCH ×2 (08:15→21:01)
[2019-04-10] MEDS: ALDACTONE PO SCH (08:15)
[2019-04-10] MEDS: MAXIPIME 2 GM in NS 100 ML IV SCH ×2 (08:16→20:55)
[2019-04-10] MEDS: NICODERM PATCH TD SCH (08:16)
[2019-04-10] MEDS: COREG PO SCH ×2 (08:16→21:00)
[2019-04-10] MEDS: NORCO-10 PO SCH ×3 (08:46→18:34)
[2019-04-10] MEDS: MUCOMYST 20% INH SCH ×2 (09:00→23:33)
--- NOTE | 2019-04-10 12:22 | PROGRESS NOTE ---
DATE: 04/10/2019 Ms. Olivas had some period of mental confusion yesterday. Her chest x-ray shows some improvement in the pneumonia. Vital signs are stable. Her lungs sound better. Abdomen is soft, nontender. Mental confusion could be on account of her medications. Her white count is 7.33, hemoglobin 12.1, hematocrit 37.8. Potassium was 3. Some potassium replacement was done yesterday by Dr. Land and we are going to do the metabolic panel as well as potassium, as well as magnesium and chest x-ray tomorrow morning. We will continue the rest of the therapy. cc: Alexis Faustin MD
--- NOTE | 2019-04-10 13:03 | CARDIOLOGY PROGRESS NOTE ---
DATE: 04/10/2019 CHIEF COMPLAINT: Shortness of breath, irregular heartbeat. SUBJECTIVE: Ms. Olivas is feeling generally better. Her heart rate at times is still jumping up to 150. Right this moment, it appears to be in sinus with PACs. Her chest x-ray today shows decreased pulmonary edema. She is comfortable clinically. OBJECTIVE: Blood pressure is 129/63, pulse 83, respirations 17, temperature 98.5. She is awake, in no distress. HEENT is unremarkable. Chest sounds clear to auscultation and percussion. Heart sounds are slightly irregular. Abdomen is soft, obese. Extremities showed no edema. Neurologic: Follows commands, moves all 4 extremities. DIAGNOSTIC DATA: Blood work from yesterday shows sodium 141, potassium 3.0. Her BUN was 17, creatinine 1.0. Magnesium was low before. IMPRESSION: 1. The patient has paroxysmal atrial fibrillation. 2. Obesity. 3. History of pulmonary embolus. 4. History of coronary heart disease. RECOMMENDATIONS: I will obtain a followup magnesium, potassium, and I believe we will probably do a followup BNP level just to make sure that things have been progressing well. We will give further advice after that. In the meantime, I have increased her Cardizem to 60 mg every 6 hours. cc: MD Alexis Valenzuela MD
[2019-04-10 13:10] LABS: CALCIUM 9.3 mg/dL (8.8-10.2); MAGNESIUM 1.6 mg/dL (1.5-2.7); POTASSIUM 3.5 mmol/L (3.5-5.1)
[2019-04-10] MEDS: KLONOPIN PO SCH ×2 (16:16→21:07)
[2019-04-11] MEDS: CARDIZEM PO SCH ×4 (01:23→18:45)
[2019-04-11] MEDS: DUONEB (A & A) INH SCH ×4 (03:32→22:30)
[2019-04-11] MEDS: PRILOSEC PO SCH (06:19)
--- NOTE | 2019-04-11 07:05 | Diag Imaging Result Doc PS360 ---
EXAM: CHEST-1 VIEW 04/11/2019 HISTORY: SOB TECHNIQUE: AP portable at 0628 COMMENT: There is fluid in the minor fissure on the right and volume loss and opacification in the middle lobe and lower lobe. The left lung appears to be slightly better expanded than on the previous examination of 04/10/2019. There is some shift of the mediastinum to the right. IMPRESSION: Worsened atelectasis and/or pneumonia in the right middle and lower lobes. Small loculated right pleural effusion. Electronically signed by Mu Castro 04/11/2019 7:03 AM
--- NOTE | 2019-04-11 07:25 | EKG Report ---
Test Performed on : 04/11/2019 07:13:08 AM Test Reason : paroxysmal atrial fibrillation Blood Pressure : / mmHG Vent. Rate : 096 BPM Atrial Rate : 051 BPM P-R Int : 000 ms QRS Dur : 092 ms QT Int : 372 ms P-R-T Axes : 000 052 252 degrees QTc Int : 469 ms Atrial fibrillation. T wave abnormality, consider inferolateral ischemia Abnormal ECG When compared with ECG of 04-APR-2019 16:01, (Unconfirmed) Atrial fibrillation. has replaced Sinus rhythm. Non-specific change in ST segment in Anterior leads T wave inversion now evident in Inferior leads T wave inversion now evident in Lateral leads Confirmed by Brendon GRANDE, Orestes Lambert ([id number]) on 04/11/2019 12:43:05 PM
[2019-04-11] MEDS: MORPHINE IV PRN ×4 (07:49→23:44)
[2019-04-11] MEDS ORDERED: POTASSIUM CHLORIDE 20% LIQUID PO ONE (08:29)
[2019-04-11] MEDS ORDERED: MAGNESIUM SULFATE 4 GM/S.W.I. 4 GM/100 ML IVPB IV ONE (08:29)
[2019-04-11] MEDS: LOVENOX SUBQ SCH (09:10)
[2019-04-11] MEDS: ALDACTONE PO SCH (09:10)
[2019-04-11] MEDS: ASPIRIN EC PO SCH (09:10)
[2019-04-11] MEDS: KLONOPIN PO SCH ×2 (09:10→20:14)
[2019-04-11] MEDS: ALTACE PO SCH ×2 (09:10→20:12)
[2019-04-11] MEDS: NICODERM PATCH TD SCH (09:10)
[2019-04-11] MEDS: NORCO-10 PO SCH ×3 (09:11→16:43)
[2019-04-11] MEDS ORDERED: LASIX IV ONE (09:11)
[2019-04-11] MEDS: COREG PO SCH ×2 (09:11→20:15)
--- NOTE | 2019-04-11 09:33 | PROGRESS NOTE ---
DATE: 04/11/2019 Ms. Olivas gets intermittently confused. She had a transesophageal echocardiogram done. 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 There is no clear evidence of shunting across the intraatrial septum. Her chest x-ray does not show improvement in the pneumonia. We are going to continue the current antibiotics. However, we will do a chest x-ray in the department and not a portable one. We will also check her electrolytes and CBC in the morning. cc: Alexis Faustin MD
[2019-04-11] MEDS: MUCOMYST 20% INH SCH ×2 (09:35→22:30)
[2019-04-11 12:02] LABS: ALLEN TEST YES; BE 1.2 mmoll (-3.0-3.0); BLOOD TYPE ARTERIAL; HCO3-(ACT) 25.7 mmoll (20.0-26.0); METHB 1.1 % (0.0-1.5); PCO2(98.6) 36 mmHg (35-45); PO2(98.6) 58 mmHg (60-100); SAMPLE BLOOD; SAO2 91.9 % (95.0-100.0); THB 12.7 g/dL (11.5-17.4); pH(98.6) 7.45 (7.35-7.45)
[2019-04-11] MEDS: MAXIPIME 2 GM in NS 100 ML IV SCH ×2 (12:03→20:12)
[2019-04-11 12:04] LABS: MODALITY ROOM AIR
[2019-04-11 12:06] LABS: O2HB 89.5 % (95.0-99.0)
[2019-04-11] MEDS: SOLU-MEDROL IV SCH (22:30)
[2019-04-12] MEDS: CARDIZEM PO SCH ×2 (01:34→06:22)
[2019-04-12] MEDS: DUONEB (A & A) INH SCH ×2 (03:21→09:29)
[2019-04-12] MEDS: MORPHINE IV PRN ×2 (04:18→08:18)
[2019-04-12] MEDS: SOLU-MEDROL IV SCH ×2 (04:18→10:20)
[2019-04-12] MEDS: PRILOSEC PO SCH (06:22)
[2019-04-12 08:01] LABS: BASO# 0.02 X1000 (0.0-0.2); BASO% 0.2 % (0.0-0.8); EOS# 0.01 X1000 (0.0-0.7); EOS% 0.1 % (0.0-10.0); HEMATOCRIT 39.2 % (37.0-47.0); HEMOGLOBIN 12.6 g/dL (12.0-16.0); LYMPH# 1.15 X1000 (1.2-3.4); LYMPH% 14.3 % (20.5-51.1); MCH 31.6 PG (27-31); MCHC 32.1 g/dL (33-37); MCV 98.2 FL (81-99); MONO# 0.12 X1000 (0.11-0.59); MONO% 1.5 % (1.7-9.3); MPV 10.7 FL (7.4-10.4); NEUT# 6.76 X1000 (1.4-6.5); NEUT% 83.9 % (42.2-75.2); PLT 209 X1000 (130-400); RBC 3.99 XMIL (4.2-5.4); RDW 14.2 % (11.5-14.5); WBC 8.06 X1000 (4.8-10.8)
[2019-04-12] MEDS: ASPIRIN EC PO SCH (08:05)
[2019-04-12] MEDS: COREG PO SCH (08:05)
[2019-04-12] MEDS: NORCO-10 PO SCH (08:05)
[2019-04-12] MEDS: KLONOPIN PO SCH (08:05)
[2019-04-12] MEDS: ALTACE PO SCH (08:06)
[2019-04-12] MEDS: LOVENOX SUBQ SCH (08:06)
[2019-04-12] MEDS: ALDACTONE PO SCH (08:06)
[2019-04-12] MEDS: NICODERM PATCH TD SCH (08:06)
[2019-04-12 08:12] LABS: CALCIUM 8.9 mg/dL (8.8-10.2); CREATININE 1.1 mg/dL (0.5-0.9); POTASSIUM 4.2 mmol/L (3.5-5.1)
[2019-04-12] MEDS: MAXIPIME 2 GM in NS 100 ML IV SCH (08:27)
--- NOTE | 2019-04-12 09:11 | Diag Imaging Result Doc PS360 ---
EXAM: CHEST-2 VIEWS HISTORY: pneumonia follow up TECHNIQUE: Chest two views COMPARISON: 04/11/2019 FINDINGS: Interval improvement in the basilar atelectasis and infiltrates. Tiny pleural effusions. The lungs are hyperexpanded. Heart is borderline mildly prominent. IMPRESSION: Interval improvement, particularly in the right base. Electronically signed by Tacho Jarvis 04/12/2019 9:09 AM
[2019-04-12] MEDS: MUCOMYST 20% INH SCH (09:29)
[2019-04-12 11:05] VITALS: BP 105/64
--- NOTE | 2019-04-13 04:12 | DISCHARGE SUMMARY ---
ADMISSION DATE: 04/04/2019 DISCHARGE DATE: 04/12/2019 HISTORY: Ms. Oilvas, who is a 68-year-old white female, was initially admitted to [facility] for bilateral pneumonia, atrial fibrillation with rapid ventricular rate, acute kidney failure, tobacco abuse. PROCEDURES IN THE HOSPITAL: 1. CT scan of the brain was negative, except for mild microvascular changes. 2. Echocardiogram initially revealed a clot in the right atrium. Her EF was of 55%. There was some tricuspid regurgitation, a 1 cm mass or clot was noted in the right atrium. 3. She had a ELODIA procedure performed by Dr. 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 There was no evidence of blood clot, however. She has not been taking her Eliquis like she is supposed to be on account of the cost. LABORATORY DATA: The final CBC showed hemoglobin 12.6, hematocrit 39.2, white count 8.06. Arterial blood gases revealed pH 7.45, pCO2 is 36, PO2 is 58, oxyhemoglobin 89.5. Electrolytes were normal, BUN 35, creatinine 1.1 now. Blood sugar was 194. HOSPITAL COURSE: She was initially admitted to [facility]. She was placed on Lovenox as well as she was given cefepime and Zyvox for her pneumonia. General condition had been poor. She had a possible blood clot, however, it was ruled out. She was admitted, transferred to [facility] ICU on 04/04/2019. She was kept here up to 04/12/2019. She was seen by Cardiology as well as Pulmonary physicians. FINAL DIAGNOSES: 1. Bilateral pneumonia, almost resolved. 2. Chronic atrial fibrillation with some anatomical defect in the right atrium. DISCHARGE INSTRUCTIONS: The patient is insisting to go home. I am going to discharge her on request. We will give her the pain medication today. cc: Alexis Faustin MD
== END 2019-04-12 12:10 | disposition home health service (06) | DRG 308 ==
LOC: P.ED 22:45 → P.MEDSURG 22:45 → P.ICU 04-04 12:39 → SUATTDRO 04-04 13:57 → ICU 04-05 11:14 → 3N 04-07 15:41
PROVIDERS: ADMIT Internal Medicine; ATTEND Internal Medicine
CPT/HCPCS: 70450; 71010; 71020; 71045; 71046; 71250; 80048; 80053; 80104; 80301; 80305; 81001; 82550; 82805; 82948; 83735; 83880; 84145; 84484; 85025; 85027; 85610; 85730; 87040; 87088; 93005; 93010; 93306; 93312; 94640; 94761; 96374; 99285; A9270; G0431; G0434; G0477; J0692; J1650; J1940; J2020; J2060; J2270; J2370; J2405; J2550; J2920; J3475; J3480; J7030; J7040; J7050; XXXXX

== ENCOUNTER 2019-12-25 21:33 | Inpatient (IN) ==
--- NOTE | 2019-12-25 22:03 | Diag Imaging Result Doc PS360 ---
CT HEAD W/O CONTRAST - 12/25/2019 INDICATION: STROKE LIKE COMPARISON: 04/04/2019 FINDINGS: The ventricles and sulci are normal in size and contour. No intracranial mass or hemorrhage. There is some stable mild cerebral white matter chronic microvascular ischemia in the periventricular white matter. The skull is intact. The sinuses are clear. IMPRESSION: No acute disease or change from prior. This exam was performed using automated exposure control, adjustment of mA or kV according to patient size, and/or use of iterative reconstruction technique Electronically signed by Mervin Hernandez 12/25/2019 10:00 PM
[2019-12-25 23:25] LABS: BASO# 0.04 X1000 (0.0-0.2); BASO% 0.3 % (0.0-0.8); EOS# 0.08 X1000 (0.0-0.7); EOS% 0.7 % (0.0-10.0); HEMATOCRIT 38.9 % (37.0-47.0); HEMOGLOBIN 12.7 g/dL (12.0-16.0); IMM GRAN# 0.05 X1000 (0.0-0.04); IMM GRAN% 0.4 % (0.0-0.5); LYMPH# 4.47 X1000 (1.2-3.4); LYMPH% 36.4 % (20.5-51.1); MCH 31.8 PG (27-31); MCHC 32.6 g/dL (33-37); MCV 97.3 FL (81-99); MONO# 1.04 X1000 (0.11-0.59); MONO% 8.5 % (1.7-9.3); MPV 10.2 FL (7.4-10.4); NEUT% 53.7 % (42.2-75.2); PLT 355 X1000 (130-400); RDW 15.3 % (11.5-14.5); WBC 12.28 X1000 (4.8-10.8)
[2019-12-25 23:45] LABS: AGAP 16; ALB/GLOB RATIO 1.5; ALBUMIN 3.4 g/dL (3.5-5.0); ALKALINE PHOSPHATASE 49 U/L (32-104); BUN 22 mg/dL (8-22); CALCIUM 8.5 mg/dL (8.8-10.2); CHLORIDE 109 mmol/L (98-107); COSMO 286; CREATININE 1.5 mg/dL (0.5-0.9); ESTIMATED GFR 34; GLUCOSE 88 mg/dL (70-104); GOT 16 U/L (10-30); GPT 10 U/L (10-36); POTASSIUM 3.8 mmol/L (3.5-5.1); SODIUM 142 mmol/L (136-145); TCO2 17 mmol/L (25-35); TOTAL BILIRUBIN < 0.15 mg/dL (0.20-1.00); TOTAL PROTEIN 5.6 g/dL (6.3-8.3)
[2019-12-25 23:47] LABS: URINE SOURCE CLEAN CATCH
--- NOTE | 2019-12-25 23:49 | EKG Report ---
Test Performed on : 12/25/2019 11:17:05 PM Test Reason : STROKE LIKE Blood Pressure : / mmHG Vent. Rate : 096 BPM Atrial Rate : 091 BPM P-R Int : 000 ms QRS Dur : 094 ms QT Int : 390 ms P-R-T Axes : 000 042 184 degrees QTc Int : [address] & T wave abnormality, consider lateral ischemia Abnormal ECG When compared with ECG of 20-SEP-2019 18:47, Atrial fibrillation. has replaced Atrial flutter. Borderline criteria for Inferior infarct are no longer present Unconfirmed Result
[2019-12-25 23:53] LABS: BILIRUBIN URINE NEGATIVE (NEGATIVE); BLOOD URINE NEGATIVE (NEGATIVE); COLOR YELLOW; GLUCOSE URINE NEGATIVE (NEGATIVE); KETONE URINE NEGATIVE (NEGATIVE); LEUKOCYTES URINE TRACE (NEGATIVE); NITRITE URINE NEGATIVE (NEGATIVE); PROTEIN URINE TRACE mg/dL (NEGATIVE); SP GRAVITY URINE 1.027; TURBIDITY URINE CLEAR (CLEAR); UROBILINOGEN URINE NORMAL (NORMAL)
[2019-12-25 23:56] LABS: INR 1.41; PROTIME 17.5 Seconds (11.0-16.0)
[2019-12-25 23:57] LABS: PTT 32.4 Seconds (22.3-41.8)
[2019-12-26 00:11] LABS: UR EPITHELIAL CELLS >10 /HPF (<10); URINE BACTERIA NEGATIVE /HPF; URINE RBC <10 /HPF (<10); URINE WBC <10 /HPF (<10)
[2019-12-26 00:12] LABS: UR AMPHETAMINES QUAL PRESUMPTIVE POSITIVE (NONE DETECT); UR BARBITUATES QUAL NONE DETECTED (NONE DETECT); UR BENZODIAZEPIN QUAL NONE DETECTED (NONE DETECT); UR CANNABINOIDS QUAL NONE DETECTED (NONE DETECT); UR COCAINE QUAL NONE DETECTED (NONE DETECT); UR METHADONE QUAL NONE DETECTED (NONE DETECT); UR OPIATES QUAL PRESUMPTIVE POSITIVE (NONE DETECT); UR OXYCODONE QUAL NONE DETECTED (NONE DETECT); UR PCP QUAL NONE DETECTED (NONE DETECT)
[2019-12-26 00:16] LABS: URINE CASTS NONE SEEN; URINE CRYSTALS NONE SEEN; URINE SMALL ROUND CELLS NONE SEEN; URINE YEAST NONE SEEN
--- NOTE | 2019-12-26 00:21 | PROVIDER DOCUMENTATION ---
This chart was entered by Sandee Eaton Scribe, acting as scribe for Nirmal Garsia MD. HPI-Neurological Disorder - General Chief Complaint: Stroke-Like Symptoms Stated Complaint: cva s/s Time Seen by Provider: 12/25/19 21:40 Source: patient, EMS Allergies/Adverse Reactions: Patient Allergies Allergy/AdvReac Type Severity Reaction Status Date / Time No Known Allergies Allergy Verified 12/17/19 16:28 Home Medications: Home Medication List Medication Instructions Recorded Confirmed Last Taken Type Nebulizer [Aeroneb Go Nebulizer] 1 each MC DAILY PRN PRN #1 each 03/24/17 09/20/19 02/03/18 Rx Albuterol Sulfate [Albuterol 8.5 gm IH DIRECTED PRN PRN 02/03/18 09/20/19 02/03/18 History Sulfate Hfa] Albuterol 2.5MG/Ipratrop 0.5MG 3 ml INH RTQ6H neb 02/04/18 09/20/19 Unknown Rx [Duoneb (A & A)] Carvedilol [Coreg] 25 mg PO BID 04/04/19 09/20/19 Unknown History LISINOpril [Prinivil] 10 mg PO DAILY 04/04/19 09/20/19 Unknown History Losartan [Cozaar] 25 mg PO BID 04/04/19 09/20/19 Unknown History Spironolactone 12.5 mg PO DAILY 04/04/19 09/20/19 Unknown History Aspirin EC 81 mg PO DAILY tab 04/12/19 09/20/19 Unknown Rx Clonazepam [Klonopin] 1 mg PO BID tab 04/12/19 09/20/19 Unknown Rx Diltiazem [Cardizem] 60 mg PO Q6H tab 04/12/19 09/20/19 Unknown Rx Nicotine Patch [Nicoderm Patch] 21 mg TD DAILY patch.td24 04/12/19 09/20/19 Unknown Rx Omeprazole [Prilosec] 40 mg PO DAILY@0700 cap 04/12/19 09/20/19 Unknown Rx Prednisone 10 mg PO DAILY #7 tab 04/12/19 09/20/19 Unknown Rx RAMIpril [Altace] 5 mg PO BID cap 04/12/19 09/20/19 Unknown Rx Apixaban [Eliquis] 10 mg PO BID 09/20/19 09/20/19 Unknown History Hydrocodone/Acetaminophen [[place] 1 ea PO 4XDAY 12/17/19 12/17/19 12/17/19 12:00 History 10-325 Tablet] Methocarbamol [Robaxin] 500 mg PO BID #20 tab 12/17/19 Unknown Rx - History of Present Illness-Neuro Nature of Presenting Problem: pt is a 69 yr old female presenting via EMS from home, per EMS family reported right facial droop, right arm and leg weakness/numbness and unable to speak, family reported onset 1hr prior. EMS reports upon their arrival to the home pt was resolved, at her normal baseline and had no complaints. pt admits recent fall hx, 1 fall 1 month ago, no LOC did not strike head and fall 2 weeks ago at which time she did strike her head, again no LOC. pt is on blood thinners Onset/Duration: reports: other (1hour [employer]) Timing: reports: resolved prior to arrival Context: reports: impaired speech, facial droop, other (weakness/numbness to right side) Approximate time patient was last seen normal?: 20:30 Character of Altered Mental Status: reports: N/A Any recent trauma/injury?: reports: minor, to head (2weeks ago) Character of Deficits: reports: new weakness, impaired speech, decreased ability to walk New weakness or altered sensation location:: reports: RUE, RLE, right facial Cognitive Baseline: alert, oriented x3 Gait Baseline: walks without assistance Associated Symptoms: reports: decreased ability to walk or stand, slurred speech , weakness. denies: headache Similar Symptoms Previously?: No Recently seen or treated by another doctor?: No Review of Systems - Adult - REVIEW OF SYSTEMS - ADULT Constitutional: reports: no symptoms reported Eyes: reports: no symptoms reported Ears, Nose, Mouth & Throat: reports: no symptoms reported Cardiovascular: denies: chest pain, syncope Respiratory: denies: cough, shortness of breath Gastrointestinal: reports: no symptoms reported Genitourinary: reports: no symptoms reported Musculoskeletal: reports: no symptoms reported Integumentary: reports: no symptoms reported Neurological: reports: numbness (numbness/weakness right side), slurred speech. denies: dizziness/vertigo, headache/migraines, syncope Psychiatric: reports: no symptoms reported Endocrine: reports: no symptoms reported Hematologic/Lymphatic: reports: no symptoms reported Allergic/Immunologic: reports: no symptoms reported All Other Systems: Reviewed and Negative Past History - Adult - PAST MEDICAL HISTORY-ADULT Review of Records: reports: Old Records Reviewed, Nursing Assessment Review, Medications Reviewed, Social history reviewed & non-contributory. Major Childhood Illnesses: reports: denies history Cardiovascular: reports: cardiac disease, A-Fib, blood clots, HTN, other (stents put in) Respiratory: reports: asthma, COPD Gastrointestinal: reports: denies history Obstetrical/Gynecological: reports: denies history Genitourinary: reports: denies history Musculoskeletal: reports: chronic pain, intervertebral disc disease Neurological: reports: denies history Psychiatric: reports: depression Endocrine/Immune: reports: denies history Other Conditions: reports: denies history - PRIOR SURGERIES/PROCEDURES Surgical/Procedure History: reports: cardiac stent (cardiac stents x2), C- section - IMMUNIZATION STATUS Childhood Immunizations: See Nurse Assessment Flu Vaccine: See Nurse Assessment - FAMILY HISTORY Family History: reviewed, not pertinent - SOCIAL HISTORY Smoking: cigarettes Provider spent 3-5 mins advising pt. on dangers of tobacco.: Discussed manners to quit use, and f/u contacts for add'l counseling. Substance Use: denies Living Situation: family Physical Exam- Neurological - Physical Exam-Neuro Initial Vital Signs Reviewed: Yes General Appearance: appears well, alert, no apparent distress Eye Exam: bilateral eye: EOMI HENMT: normocephalic/atraumatic, moist mucous membranes Head Injury: no evidence of injury Neck: non-tender, full range of motion, supple Respiratory: chest non-tender, lungs clear, normal breath sounds Cardiovascular: regular rate, rhythm, no edema Abdominal Exam: non tender, soft Extremity: normal range of motion, non-tender, other (gait not tested) director home health Exam: normal hearing, normal speech, PERRL Motor/Sensory: no motor deficit, no sensory deficit Neurologic: director home health II-XII nml as tested Integumentary: normal color Psych/Mental Status: oriented x 3 - Glascow Coma Scale Best Eye Response: (4) open spontaneously Best Verbal Response: (5) oriented Best Motor Response: (6) obeys commands Progress - PLAN OF CARE/RESULTS Progress/Plan/Lab Results: Vital Signs - 8 hr 12/25/19 22:56 Temperature 98.2 F Pulse Rate 90 Respiratory Rate 19 Blood Pressure 101/57 O2 Sat by Pulse Oximetry 99 Laboratory Results - last 24 hr 12/25/19 12/25/19 12/25/19 22:47 22:47 22:47 WBC 12.28 H RBC 4.00 L Hgb 12.7 Hct 38.9 MCV 97.3 MCH 31.8 H MCHC 32.6 L RDW Std Deviation 15.3 H Plt Count 355 MPV 10.2 Immature Gran % (Auto) 0.4 Neut % (Auto) 53.7 Lymph % (Auto) 36.4 Barnes % (Auto) 8.5 Eos % (Auto) 0.7 Baso % (Auto) 0.3 Immature Gran # (Auto) 0.05 H Neut # (Auto) 6.60 H Lymph # (Auto) 4.47 H Barnes # (Auto) 1.04 H Eos # (Auto) 0.08 Baso # (Auto) 0.04 PT 17.5 H INR 1.41 PTT (Actin FS) 32.4 Sodium 142 Potassium 3.8 Chloride 109 H Carbon Dioxide 17 L Anion Gap 16 BUN 22 Creatinine 1.5 H Estimated GFR/1.73 m2 34 BUN/Creatinine Ratio 15 Glucose 88 Calculated Osmolality 286 Calcium 8.5 L Total Bilirubin < 0.15 L AST 16 ALT 10 Alkaline Phosphatase 49 Troponin T High Sens Total Protein 5.6 L Albumin 3.4 L Globulin 2.2 Albumin/Globulin Ratio 1.5 Urine Source Urine Color Urine Turbidity Urine pH Ur Specific Bison Urine Protein Ur Glucose (Stick) Ur Ketones (Stick) Urine Blood Urine Nitrite Urine Bilirubin Urobilinogen Dipstick Urine Leukocytes Urine WBC (Auto) Urine RBC (Auto) U Epithel Cells (Auto) Urine Bacteria (Auto) Urine Crystals Small Round Cells Urine Casts Urine Yeast-like Cells Urine Opiates Screen Ur Oxycodone Screen Ur Methadone, Qual Ur Barbiturates Screen Ur Phencyclidine Scrn Ur Amphetamines Screen U Benzodiazepines Scrn Urine Cocaine Screen U Cannabinoids Screen 12/25/19 12/25/19 12/25/19 22:47 23:41 23:41 WBC RBC Hgb Hct MCV MCH MCHC RDW Std Deviation Plt Count MPV Immature Gran % (Auto) Neut % (Auto) Lymph % (Auto) Barnes % (Auto) Eos % (Auto) Baso % (Auto) Immature Gran # (Auto) Neut # (Auto) Lymph # (Auto) Barnes # (Auto) Eos # (Auto) Baso # (Auto) PT INR PTT (Actin FS) Sodium Potassium Chloride Carbon Dioxide Anion Gap BUN Creatinine Estimated GFR/1.73 m2 BUN/Creatinine Ratio Glucose Calculated Osmolality Calcium Total Bilirubin AST ALT Alkaline Phosphatase Troponin T High Sens 42 H Total Protein Albumin Globulin Albumin/Globulin Ratio Urine Source CLEAN CATCH Urine Color YELLOW Urine Turbidity CLEAR Urine pH 6.0 Ur Specific Bison 1.027 Urine Protein TRACE A Ur Glucose (Stick) NEGATIVE Ur Ketones (Stick) NEGATIVE Urine Blood NEGATIVE Urine Nitrite NEGATIVE Urine Bilirubin NEGATIVE Urobilinogen Dipstick NORMAL Urine Leukocytes TRACE A Urine WBC (Auto) <10 Urine RBC (Auto) <10 U Epithel Cells (Auto) >10 A Urine Bacteria (Auto) NEGATIVE Urine Crystals NONE SEEN Small Round Cells NONE SEEN Urine Casts NONE SEEN Urine Yeast-like Cells NONE SEEN Urine Opiates Screen PRESUMPTIVE POSITIVE A Ur Oxycodone Screen NONE DETECTED Ur Methadone, Qual NONE DETECTED Ur Barbiturates Screen NONE DETECTED Ur Phencyclidine Scrn NONE DETECTED Ur Amphetamines Screen PRESUMPTIVE POSITIVE A U Benzodiazepines Scrn NONE DETECTED Urine Cocaine Screen NONE DETECTED U Cannabinoids Screen NONE DETECTED Orders Category Date Time Status Cardiac Monitoring DIRECTED Care 12/25/19 23:07 Active Finger Stick Blood Sugar (ED) DIRECTED Care 12/25/19 23:07 Active Saline Loc NOW Care 12/25/19 23:[address] HEAD W/O CONTRAST [CT] Stat Exams 12/25/19 21:36 Completed CBC WITH ELECTRONIC DIFF [HEME] Stat Lab 12/25/19 22:47 Completed COMPREHENSIVE METABOLIC PANEL [CHEM] Stat Lab 12/25/19 22:47 Completed PROTIME WITH INR [COAG] Stat Lab 12/25/19 22:47 Completed PTT [COAG] Stat Lab 12/25/19 22:47 Completed TROPONIN T HIGH SENSITIVITY Stat Lab 12/25/19 22:47 Completed URINALYSIS W/POSS RFLX CULT [URINALYSIS] Stat Lab 12/25/19 23:41 Completed URINE DRUG SCREEN Stat Lab 12/25/19 23:41 Completed URINE MANUAL MICROSCOPIC [URINALYSIS] Stat Lab 12/25/19 23:41 Completed EKG [EKG] Stat Ther 12/25/19 23:07 Draft Result Diagrams: 12/25/19 22:47 12/25/19 22:47 - REASSESSMENT Reassessment #1 Time Reassessed: 00:33 Status: improving (Patient does not have neurologic deficit at this time. Has neg Ct head, Urine pos for opiate and amphetamine. Takes norco 10mg but could not explain her positive amphetamine. Discussed admission with Hospitalist for TIA work up) - EKG 1 Time of EKG reading by physician:: 23:25 EKG Read and Signed by:: Nirmal Garsia Rate: 96 [place]: normal QRS: normal Comments: Afib - CT/MRI 1 Impression: Normal ( CT HEAD W/O CONTRAST - 12/25/2019 INDICATION: STROKE LIKE COMPARISON: 04/04/2019 FINDINGS: The ventricles and sulci are normal in size and contour. No intracranial mass or hemorrhage. There is some stable mild cerebral white matter chronic microvascular ischemia in the periventricular white matter. The skull is intact. The sinuses are clear. IMPRESSION: No acute disease or change from prior. This exam was performed using automated exposure control, adjustment of mA or kV according to patient size, and/or use of iterative reconstruction technique Electronically signed by Mervin Hernandez 12/25/2019 10:00 PM 12/25/192199 Interpreting Physician: Mervin Hernandez MD Dictated Date/Time: 12/25/192158 cc: Lucio Manuel MD; Alexis Faustin MD) - CONSULTS/PCP/HOSPITALIST Notification #1 *Consult/PCP/Hospitalist*: Dr Sauer Time Discussed: 00:28 Consult Disposition: Admit (accepts.) Departure - Departure Date of Disposition Decision: 12/26/19 Time of Disposition Decision: 00:30 DIAGNOSIS: Amphetamine abuse TIA (transient ischemic attack) Qualifiers: Transient cerebral ischemia type: unspecified Qualified Code(s): G45.9 - Transient cerebral ischemic attack, unspecified Disposition: ADMITTED INPATIENT 09 Certified Medical Emergency: Emergent Condition: Fair Referrals and Follow-Ups: Alexis Faustin MD [Primary Care Provider] - - Critical Care Note This patient required my direct & personal management of CC.: No Attestation - Physician/ KRYSTAL Attestation Patient care was provided by Advanced Practice Provider:: No The physician spent face to face time with patient:: Yes Advanced Practice Provider documentation review:: Supervising physician onsite and consulted in the evaluation and care of this patient. The physician did have a face to face encounter with the patient. - NIH Stroke Scale Level of Consciousness: 0-Alert LOC Questions (ask month and age): 0-Answers Both Correctly LOC Commands (ask to open & close eyes;make a fist, let go): 0-Obeys Both Correctly Visual (use finger movement, counting or visual threat): 0-No Visual Loss Facial Palsy (show teeth or raise eyebrows & close eyes tght: 0-Symmetrical Movement Motor Function-left arm: 0-Normal Motor Function-right arm: 0-Normal Motor Function-left le-Normal Motor Function-right le-Normal Limb Ataxia(beeeem-pjae-adodcw, or heel to fritz): 0-No Ataxia Sensory(pin prick to face,arms,trunk,legs-compare side/side): 0-No Ataxia Best Language(name item/read sentence.Ex-Down to Earth): 0-No Aphasia Dysarthria(Pt read words or say words Ex.Mama,Tip-Top,Thanks: 0-Normal Articulation Extinction and Inattention: 0-Normal NIH Total Score: 0 Modified [place] Score Criteria: 1-no significant disability despite symptoms This chart was documented by the indicated scribe, (Sandee Eaton, [employer]) and accurately reflects the services I performed and decisions made by me, Nirmal Garsia MD, as attested by the provider's signature.
[2019-12-26] MEDS ORDERED: NS 1,000 ML IV ONE (00:33)
--- NOTE | 2019-12-26 08:38 | HISTORY AND PHYSICAL ---
PRIMARY CARE PHYSICIAN: Dr. Faustin. CHIEF COMPLAINT: Right-sided weakness. HISTORY OF PRESENTING ILLNESS: A 69-year-old female with a history of coronary artery disease, TIA, COPD, atrial fibrillation, and pulmonary embolism who had presented to the emergency department with a 1-day history of having right-sided weakness. As per family, she was getting confused and was also having difficulty speaking. When EMS arrived, apparently her symptoms resolved. She was brought to the emergency department and evaluated. She had imaging done which was unremarkable. However, due to her presenting symptoms, she will require admission for a stroke workup. At the time of my examination, patient denied any headache, fever, chills, chest pain, shortness of breath, or any weight changes. States she feels okay now. PAST MEDICAL HISTORY: Includes coronary artery disease, TIA, COPD, hypertension, atrial fibrillation, pulmonary embolism, DVT. PAST SURGICAL HISTORY: section, coronary stent. ALLERGIES: No known drug allergies. CURRENT MEDICATIONS: She does not recall. Nursing staff will reconcile. SOCIAL HISTORY: A 40+ pack years history of smoking. Denies any history of alcohol or illicit drug use. FAMILY HISTORY: No history of coronary artery disease. REVIEW OF SYSTEMS: Fourteen point review of systems listed as in the HPI. Other systems negative. PHYSICAL EXAMINATION: GENERAL: Cooperative, friendly female. She is resting comfortably now. VITAL SIGNS: Temperature 97.6 degrees, pulse 74, respirations 20, blood pressure 122/62. HEENT: Atraumatic, normocephalic. Extraocular movements intact. PERRLA. NECK: No masses. CHEST: Clear to auscultation. CARDIOVASCULAR: Regular rate and rhythm. ABDOMEN: Soft. Positive bowel sounds. EXTREMITIES: No edema. NEUROLOGIC: She is awake, alert, oriented x2. Speech is intact. Strength 5/5 of all extremities. : No bladder distention. SKIN: Warm. LABORATORIES AND STUDIES: WBCs 12.28, hemoglobin 12.7, hematocrit 38.9, platelets 355,000. Sodium 142, potassium 3.8, chloride 109, CO2 is 17, BUN is 22, creatinine is 1.5, glucose 88. CT of the head, no acute disease or change from prior. ASSESSMENT: A 69-year-old female with a history of coronary artery disease, transient ischemic attack, chronic obstructive pulmonary disease, hypertension, and atrial fibrillation, who had presented to the emergency department with a 1-day history of a right-sided weakness. Apparently, when emergency medical services arrived, her symptoms resolved. She was brought to the emergency department and due to her presenting symptoms, she will be admitted for possible stroke workup. 1. Right-sided weakness, suspected transient ischemic attack. We will need to rule out cerebrovascular accident. 2. Atrial fibrillation. 3. Chronic obstructive pulmonary disease. 4. Hypertension. PLAN: 1. We will admit patient to the medical floor with telemetry. 2. Continue with stroke workup. 3. We will consult neurology. 4. We will schedule patient for MRI of the brain. 5. Continue to monitor patient on telemetry. 6. We will continue with DuoNebs p.r.n. 7. Monitor blood pressure and allow permissive hypertension. 8. Put patient on DVT prophylaxis with SCD. 9. We will continue to follow, reassess, and make further recommendations based on the patient's clinical course. cc: MD Alexis Mitchell MD
[2019-12-26 08:49] LABS: BASO# 0.04 X1000 (0.0-0.2); BASO% 0.4 % (0.0-0.8); EOS# 0.13 X1000 (0.0-0.7); EOS% 1.4 % (0.0-10.0); HEMATOCRIT 36.8 % (37.0-47.0); HEMOGLOBIN 11.7 g/dL (12.0-16.0); LYMPH# 3.49 X1000 (1.2-3.4); LYMPH% 38.8 % (20.5-51.1); MCH 31.3 PG (27-31); MCHC 31.8 g/dL (33-37); MCV 98.4 FL (81-99); MONO# 0.81 X1000 (0.11-0.59); NEUT# 4.52 X1000 (1.4-6.5); NEUT% 50.4 % (42.2-75.2); PLT 326 X1000 (130-400); RBC 3.74 XMIL (4.2-5.4); RDW 15.7 % (11.5-14.5); WBC 8.99 X1000 (4.8-10.8)
[2019-12-26] MEDS: ASPIRIN EC PO SCH (10:35)
[2019-12-26] MEDS: NORCO-10 PO SCH ×4 (10:36→20:26)
[2019-12-26] MEDS: XANAX PO SCH ×2 (10:36→20:26)
--- NOTE | 2019-12-26 11:10 | PROGRESS NOTE ---
DATE: 12/26/2019 Ms. Olivas was admitted with change in the mental status, possible urinary tract infection. She did have some right-sided weakness when she came in. However, the CT scan of the brain is normal. She has chronic atrial fibrillation. She is on Eliquis. She also has COPD and hypertension. It appears like she may have some mild urinary tract infection as she has some dysuria. The microbiology, urine cultures have been done. We will continue with the current management. -4 cc: Alexis Faustin MD
[2019-12-26] MEDS: NICODERM PATCH TD PRN (20:26)
--- NOTE | 2019-12-26 21:22 | NEUROLOGY CONSULTATION ---
DATE: 12/26/2019 REASON FOR CONSULT: Question of stroke. HISTORY OF PRESENT ILLNESS: This is a 69-year-old, right-handed female with history of coronary artery disease, atrial fibrillation, possible remote TIA, hypertension, remote pulmonary embolism and chronic anticoagulation who presented last night with mental status changes and possible right-sided weakness. History is from chart review as the patient is not a good historian and there is not family currently available. Apparently, she was having some confusion with some difficulty speaking. The family reported to the ER that they saw right facial droop, right arm and leg weakness and numbness and difficulty with speaking. The symptoms resolved prior to EMS arrival at her home. I am not certain how long the symptoms lasted. The patient had a head CT that did not show acute findings. Creatinine is 1.5. Toxicology is presumptive positive for opiates and amphetamines. A urine culture is pending. PAST MEDICAL HISTORY: Includes coronary artery disease, reported TIA, COPD, hypertension chronic atrial fibrillation, pulmonary embolus I believe in 2017, chronic anticoagulation with Eliquis. PAST SURGICAL HISTORY: section. FAMILY HISTORY: No seizures or strokes. SOCIAL HISTORY: She is a smoker. No alcohol or illicits. ALLERGIES: No known drug allergies listed. CURRENT MEDICATIONS: Reviewed in the chart. Include [place], Xanax, aspirin 81 mg. I believe she takes Eliquis at home. I do not believe her medications have been reconciled yet. REVIEW OF SYSTEMS: Balance of 12 conducted and otherwise negative except that detailed in the HPI. PHYSICAL EXAMINATION: Vital Signs: Afebrile. Blood pressure 101/57 on arrival current 111/50. Pulse 84, respirations 22, 98% on room air. Neurological: Ms. Olivas is supine in bed. She is awake, reasonably alert. There is some intention at times more so than others. She requires redirection. She tends to talk in tangents that may be unrelated to the question. She loses her train of thought. She is oriented to self, hospital, the President. She stated the year was 2000. but then said no it is 2020, which is off by 1 year. She knew it was December. She did not know the date. She thought was the . She was off by 1 day for the day of the week. She followed simple commands consistently. Left-right digit distinction preserved. She had a difficult time naming a watch but could tell me that it used to tell time. She named glasses but did not name parts of the glasses. She did name the watch band. She named a pen. She repeated phrase correctly. She is mildly dysarthric. Pupils are equal, round, and reactive to bright light. Gaze conjugate. Ocular movements are full. Face symmetric. She blinks to threat. Face is symmetric appearing with equal activation. She can hear. Tongue is midline. I could not visualize the palate well. Shoulder shrug is full. No drift. With her arms outstretched there is asterixis. There was not other abnormal or adventitious movements noted during the exam. Tone was equal in the limbs. Reflexes were absent at the ankles, 1+ at the knees, wrists and biceps bilaterally. No clonus. Plantar response is downgoing. [id number] and rapid alternating movements are intact. I did not test her gait. DIAGNOSTICS: Head CT noncontrast personally reviewed showing no acute findings. Labs reviewed in the chart as per above. ASSESSMENT AND PLAN: Apparent global encephalopathy and reports of transient right hemiparesis. The latter now resolved. Etiology of the global encephalopathy is uncertain. If she has a mild cognitive impairment syndrome, then an underlying urinary tract infection or any toxic or metabolic disturbance would predispose her to a protracted encephalopathy course. Her toxicology was also positive for opiates which she may have a prescription for but also amphetamines and I am not certain about the reasoning of that. In terms of the transient weakness,. It is possible that this represented a transient ischemic attack. I Agree with atypical stroke workup and risk factor modification. MRI of the brain has been ordered and we will await those results. I would continue her home medications. Thank you for the consult. cc: MD Alexis Ureña MD
[2019-12-27] MEDS: TYLENOL PO PRN ×2 (03:36→22:34)
[2019-12-27] MEDS: NORCO-10 PO SCH ×3 (08:37→20:41)
[2019-12-27] MEDS: ASPIRIN EC PO SCH (08:37)
[2019-12-27] MEDS: XANAX PO SCH ×2 (08:37→20:41)
[2019-12-27] MEDS: DUONEB (A & A) INH PRN ×3 (09:01→22:10)
--- NOTE | 2019-12-27 10:16 | PROGRESS NOTE ---
DATE: 12/27/2019 Ms. Olivas says she is in a lot of pain in the lower back and to the legs. 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 However, I cannot really pinpoint about which hand is weaker at the present time. She is somewhat drowsy. I do not have the MRI results back as ordered by Dr. Wilson. She seems to have a global encephalopathy. Continue with the current management on her. -0 cc: Alexis Faustin MD
--- NOTE | 2019-12-27 10:45 | Diag Imaging Result Doc PS360 ---
EXAM: MRI BRAIN W/WO CONTRAST INDICATION: stroke COMPARISON: None. FINDINGS: There is no evidence of acute infarct. There is a small chronic lacunar infarct involving the left basal ganglion with surrounding trace gliosis, stable. The deep white matter signal is essentially unremarkable, otherwise. There is no discrete intracranial mass, mass effect, or intracranial hemorrhage. There is no evidence of abnormal intracranial enhancement. The surrounding soft tissues and bony structures are essentially unremarkable. IMPRESSION: Tiny chronic lacunar infarct involving the left basal ganglion that is stable. No evidence of acute intracranial pathology. Electronically signed by Fadi Abbasi 12/27/2019 10:43 AM
--- NOTE | 2019-12-27 14:59 | NEUROLOGY PROGRESS NOTE ---
DATE: 12/27/2019 Ms. Olivas was admitted with possible altered mental state and question of transient right-sided weakness, resolving prior to presentation. Dr. Wilson saw her for initial neurology evaluation. This morning, Ms. Olivas told me she was "talking out of my head a little while" and that she does not remember details. She believes that has happened several times before, first episode as long as 2 years ago. Previous episodes seemed to resolve more quickly, by her report, than the recent episode. She does not recall focal neurologic feature. She believes she was able to understand what was said to her but had trouble making herself understood. There was not associated headache, altered awareness, unconsciousness, by her report. Her home medicine list includes 17 entries. She presented with urine drug screen positive for opiate and negative for benzodiazepine. Home prescriptions include hydrocodone p.r.n. for pain and alprazolam. She reports taking alprazolam every night and she takes a morning dose most days. She reports she had not run out of alprazolam prior to this episode. Chemistry was unremarkable. She has been afebrile. Systolic blood pressures have been stable, 80s-120s. On exam now, she is awake, alert, attentive. She seems appropriate now. Speech is not dysarthric. Language function is intact on careful bedside testing. Remote memory is good. She is oriented to all parameters. Head and neck are unremarkable. Visual gill are full. Extraocular movements are full. Facial motility is symmetric. Sensation is intact on gross testing. She has good power in the limbs without definite focal deficit. She did well on irgalo-zv-zikr testing bilaterally. IMPRESSION: Question of transient altered mentation, uncertain etiology. Her history is that she had not run out of her benzodiazepine. The urine drug screen here has a fairly high threshold for benzodiazepine and her report may be consistent with negative benzodiazepine drug screen on presentation. History is consistent with transient ischemic attack, but we would not expect an altered mental state associated with simple dominant left hemisphere transient ischemic attack causing transient right hemiparesis. If she had transient dysphasia associated with the hemiparesis, that might have been misinterpreted as an altered mental state. She has risk factors for cerebrovascular ischemic problems including atrial fibrillation, ischemic heart disease, hypertension, and 40+ pack-year history of cigarette smoking. She is to have MRI scan this morning. Further plans will depend on that report and on her clinical course. Thanks for asking neurology to see Ms. Olivas. cc: MD Alexis Hammer III, MD MTDD
[2019-12-27] MEDS ORDERED: CARDIZEM IV ONE (21:13)
[2019-12-27] MEDS: CARDIZEM 100 MG/NS 100 MG/100 ML IVPB IV SCH (22:34)
[2019-12-28] MEDS: NORCO-10 PO SCH ×4 (02:57→20:48)
[2019-12-28] MEDS: ELIQUIS PO SCH ×2 (08:10→20:48)
[2019-12-28] MEDS: ASPIRIN EC PO SCH (08:10)
[2019-12-28] MEDS: CARDIZEM 100 MG/NS 100 MG/100 ML IVPB IV SCH ×2 (08:10→18:59)
[2019-12-28] MEDS: XANAX PO SCH ×2 (08:10→20:48)
[2019-12-28] MEDS: NICODERM PATCH TD PRN (08:14)
[2019-12-28] MEDS ORDERED: LABETALOL IV PRN (08:30)
[2019-12-28] MEDS: DUONEB (A & A) INH PRN ×2 (11:20→19:38)
--- NOTE | 2019-12-28 12:30 | PROGRESS NOTE ---
DATE: 12/28/2019 Ms. Olivas was transferred last night to the [facility] floor because of the atrial fibrillation with rapid heart rate. Her general condition is stable. Heart rate has come down. Blood pressure was high earlier. We will give her the labetalol on a p.r.n. basis. Carotid flow results are not back. She is supposed to be getting her medications regularly. Mental status has improved. Today, she has complaints about the hip pain and unable to walk. We will get a physical therapy consult. -9 cc: Alexis Faustin MD
--- NOTE | 2019-12-28 20:24 | NEUROLOGY PROGRESS NOTE ---
DATE: 12/28/2019 Ms. Olivas is awake, alert, attentive and appropriate. Speech is not dysarthric. She reports no new problems. Son present at the bedside today reports finding her on the night of her presentation just as she woke from sleep, and she seemed unable to use her right limbs with drooping right face and drooping right eyelid. Speech was very slurred, but he could understand some of her words. He did not witness unconsciousness, unresponsiveness, or maritza seizure. He called an ambulance and by the time the ambulance arrived about 20 minutes later, she seemed almost completely or completely recovered. He has not seen her have this type of episode before. Her brain MRI showed left basal ganglia lacune which appears to be old. Systolic blood pressures have ranged 120s to 160s in the last 24 hours. Her home medication list has 17 entries. My impression is that she had likely dominant left hemisphere transient ischemic attack. There is history of prior cerebrovascular ischemic problems and she has typical risk factors. Workup has been sufficient here. I do not have any new suggestions from a neurology standpoint. I encouraged her to be aggressive with management of her risk factors for cerebrovascular ischemic problems, and to be very careful with her medicines. I told her to keep followup with Dr. Faustin. I will be glad to see her as an outpatient if she has further neurologic problems. Thanks for asking Neurology to see Ms. Olivas. cc: MD Alexis Hammer III, MD MTDD
[2019-12-29] MEDS: TYLENOL PO PRN (01:48)
[2019-12-29] MEDS: NORCO-10 PO SCH ×2 (02:49→08:24)
[2019-12-29] MEDS: CARDIZEM 100 MG/NS 100 MG/100 ML IVPB IV SCH ×2 (03:52→14:06)
[2019-12-29] MEDS: ASPIRIN EC PO SCH (08:24)
[2019-12-29] MEDS: ELIQUIS PO SCH ×2 (08:24→20:57)
[2019-12-29] MEDS: XANAX PO SCH ×2 (08:24→20:56)
--- NOTE | 2019-12-29 11:22 | EKG Report ---
Test Performed on : 12/29/2019 11:06:06 AM Test Reason : afib Blood Pressure : / mmHG Vent. Rate : 089 BPM Atrial Rate : 357 BPM P-R Int : 000 ms QRS Dur : 088 ms QT Int : 354 ms P-R-T Axes : 000 037 234 degrees QTc Int : [address] & T wave abnormality, consider inferior ischemia Abnormal ECG When compared with ECG of 25-DEC-2019 23:17, (Unconfirmed) QT has shortened Confirmed by Martin Schwarz MD ([id number]) on 12/29/2019 12:17:31 PM
[2019-12-29] MEDS ORDERED: COREG PO SCH (12:15)
[2019-12-29] MEDS: NEURONTIN PO SCH ×2 (12:18→20:56)
--- NOTE | 2019-12-29 12:41 | Diag Imaging Result Doc PS360 ---
EXAM: CHEST-PORTABLE HISTORY: dyspnea, afib TECHNIQUE: Single view COMPARISON: 09/20/2019 FINDINGS: The lungs are well expanded. The heart is mildly enlarged. The vessels are not distended. There are no infiltrates. No effusion identified. IMPRESSION: Mild cardiomegaly, but no pulmonary edema. Electronically signed by Tacho Jarvis 12/29/2019 12:38 PM
[2019-12-29 13:49] LABS: AGAP 11; BUN 8 mg/dL (8-22); CALCIUM 9.2 mg/dL (8.8-10.2); CHLORIDE 102 mmol/L (98-107); COSMO 275; CREATININE 0.7 mg/dL (0.5-0.9); ESTIMATED GFR > 60; GLUCOSE 121 mg/dL (70-104); MAGNESIUM 1.5 mg/dL (1.5-2.7); POTASSIUM 3.4 mmol/L (3.5-5.1); SODIUM 138 mmol/L (136-145); TCO2 25 mmol/L (25-35)
[2019-12-29] MEDS: CARDIZEM PO SCH ×2 (14:06→20:56)
[2019-12-29] MEDS: NORCO-7.5 PO PRN (15:13)
--- NOTE | 2019-12-29 19:22 | CARDIOLOGY CONSULTATION ---
DATE: 12/29/2019 CHIEF COMPLAINT ON PRESENTATION: Apparent right-sided weakness. HISTORY OF PRESENT ILLNESS: Ms. Olivas is a 69-year-old white female who [facility], last visit in May 2019. She carries a history of coronary artery disease as well as paroxysmal atrial fibrillation. She presented for evaluation on the with right-sided weakness. Apparently previously she had a fall and was evaluated in the emergency room and was not found to have a fracture. She was sent home and again presented back. Subsequently she was noted to be in atrial fibrillation during this hospitalization. She has no pain complaints presently other than her right hip. She has no heart racing. She denies any chest pain. She denies any orthopnea. PAST MEDICAL HISTORY: Significant for: 1. Coronary artery disease, she has a history of PCI previously. Last cardiac catheterization in July of 2018. At that time, she had a normal left main. The LAD had a stented segment, which was widely patent with no in-stent stenosis, minimal irregularities elsewhere. The circumflex had minor irregularities. RCA was dominant with 100% occlusion collateralized from the left side. This was an old finding. Last nuclear scan in December 2017 showed moderate reversibility in the basal to mid inferolateral wall. Ejection fraction on that study was 82%. 2. Paroxysmal atrial fibrillation. 3. History of pulmonary embolism. 4. Hypertension. 5. Hyperlipidemia. 6. History of DVT in 2015. 7. Chronic renal insufficiency. 8. Obesity. 9. TIA. 10. Fibromyalgia. 11. Chronic pain syndrome. SOCIAL HISTORY: She has a 40+ pack year history of smoking. Denies any current alcohol or illicit drug use. FAMILY HISTORY: Significant for hypertension. REVIEW OF SYSTEMS: A 10-system review of systems is negative. PHYSICAL EXAMINATION: Vital signs: She is afebrile. Heart rate is 88, blood pressure 151/81. General: She is in no acute distress. HEENT: Oropharynx is moist. Poor dentition. Eye examination is pink conjunctivae. White sclerae. Neck: Examination shows no obvious thyromegaly or thyroid tenderness. Cardiovascular: She sounds to be in an irregularly irregular rhythm. She has no murmurs. She has no S3. She has no lower extremity edema. Chest: Clear bilaterally. She has no increased work of breathing. Abdomen: Soft, nontender, nondistended. She has no obvious organomegaly. Skin: Warm and dry throughout without any rashes. Neurological: She is moving all extremities well. She has no lateralizing deficits. PERTINENT DATA: Lab-jordan, she had a white count of 8.9. Her hematocrit is 36. Her platelet count is 326,000. Her LDL was 94 on the . She had an electrocardiogram on the . This demonstrates what appears to be atrial fibrillation. She has a rate of 89 beats per minute. Brain MRI demonstrated a tiny chronic lacunar infarct involving the left basal ganglion, and that appeared stable. ASSESSMENT: Ms. Olivas is a 69-year-old female who presented with right-sided weakness converted back into atrial fibrillation. PLAN: She is currently on Eliquis. I will initiate her on sotalol 80 b.i.d. I have stopped the Coreg, placed her on diltiazem at 30 p.o. q.6 hours. If she remains in atrial fibrillation over the course of the weekend, we can consider ELODIA cardioversion on Wednesday. cc: MD Alexis Mcguire MD
--- NOTE | 2019-12-29 19:30 | Carotid Study ---
DATE: 12/27/2019 REFERRING PHYSICIAN: Ramin. INTERPRETING PHYSICIAN: Fernie. MEDICAL STAFF SERVICES MANAGER: Anton. FINDINGS: Velocities are noted. There is irregular plaque at the takeoff of the right internal and a proximal right internal tortuosity. There is a plaque in the left internal. The internal and common carotid ratio on the right is 1.4, left 1.7, percent stenosis 40% to 59% on the right, and 40% to 59% on the left. There is antegrade vertebral flow bilaterally. INTERPRETATION: Plaque exists at both bulbs. The internal is noted to be tortuous bilaterally. The plaque produces a mild stenosis, but does not produce a hemodynamic stenosis. There is antegrade vertebral flow bilaterally. This study probably has not changed since a year ago. cc: MD Alexis Anne MD [facility]
[2019-12-29] MEDS: LIPITOR PO SCH (20:56)
[2019-12-29] MEDS: BETAPACE PO SCH (20:56)
[2019-12-30] MEDS: CARDIZEM 100 MG/NS 100 MG/100 ML IVPB IV SCH (01:25)
[2019-12-30] MEDS: CARDIZEM PO SCH ×4 (03:16→21:09)
[2019-12-30] MEDS: NORCO-7.5 PO PRN ×3 (03:23→22:21)
[2019-12-30] MEDS: BETAPACE PO SCH ×2 (08:32→21:09)
[2019-12-30] MEDS: XANAX PO SCH ×2 (08:32→21:09)
[2019-12-30] MEDS: ASPIRIN EC PO SCH (08:32)
[2019-12-30] MEDS: ELIQUIS PO SCH ×2 (08:32→21:09)
[2019-12-30] MEDS: NEURONTIN PO SCH ×2 (08:32→21:09)
--- NOTE | 2019-12-30 09:32 | EKG Report ---
Test Performed on : 12/30/2019 06:20:40 AM Test Reason : afib Blood Pressure : / mmHG Vent. Rate : 072 BPM Atrial Rate : 357 BPM P-R Int : 000 ms QRS Dur : 086 ms QT Int : 448 ms P-R-T Axes : 000 029 -03 degrees QTc Int : 490 ms Atrial fibrillation. Nonspecific ST and T wave abnormality Abnormal ECG When compared with ECG of 29-DEC-2019 11:06, Nonspecific T wave abnormality, improved in Lateral leads QT has lengthened Confirmed by Martin Schwarz MD ([id number]) on 01/02/2020 7:38:48 AM
--- NOTE | 2019-12-30 14:04 | PROGRESS NOTE ---
DATE: 12/30/2019 SUBJECTIVE: The patient continues without chest discomfort or shortness of breath on room air. She remains in atrial fibrillation. OBJECTIVE: Vital Signs: Blood pressure 133/85, heart rate 80 and irregular. Oxygen saturation 98% on room air. There is no significant jugular distention. Chest: Clear to auscultation bilaterally. Cardiac Exam: Reveals an irregular rate and rhythm without appreciable murmur or gallop. There is no evidence of peripheral edema. PERTINENT DATA: Twelve lead EKG demonstrates atrial fibrillation with ventricular rate response of 72 beats per minute and nonspecific ST and T-wave abnormality. Corrected QT interval is 490 msec. LABORATORY DATA: Includes sodium 138, potassium 3.4, chloride 102, carbon dioxide 25, BUN 8, creatinine 0.7, glucose 121. IMPRESSION: 1. Persistent atrial fibrillation with history of paroxysmal atrial fibrillation. 2. Previous pulmonary embolism in the past. 3. Atherosclerotic coronary artery disease. Patient continues without angina. 4. Hypertension. 5. Hyperlipidemia. 6. Previous deep venous thrombosis, 2016. 7. Transient ischemic attack. 8. Obesity. RECOMMENDATIONS: 1. Continue sotalol. 2. If atrial fibrillation persists, pursue ELODIA cardioversion in a.m. tomorrow. Transesophageal echocardiography and cardioversion was discussed with the patient including potential hazards. She wished to proceed. cc: MD Alexis Cisneros MD
--- NOTE | 2019-12-30 14:32 | PROGRESS NOTE ---
DATE: 12/30/2019 SUBJECTIVE: Patient complains of left hip pain. She it actually started when she had a fall earlier. She is not having any arm weakness on either side. No speech deficit. She does complain of some weakness in her legs and, again, the left hip pain. OBJECTIVE: Afebrile, pulse 80, respirations 17, blood pressure 133/85, O2 saturation room air 98%.CV: Irregularly, irregular. Lungs: Clear. Abdomen: Soft, protuberant, nontender. Extremities: No calf tenderness, cords or edema. Large legs. There is tenderness about the left hip. Neurologic: Cranial nerves are intact. She moves all extremities. No focal deficits. IMAGING: Reviewed MRI results of the brain showing old lacunar infarct, tiny, and on the left. Carotid Dopplers are without great limiting disease. EKG shows atrial fibrillation. ASSESSMENT: 1. Transient ischemic attack, now improved. 2. Persistent atrial fibrillation with history of PAF. 3. Coronary artery disease. 4. Hypertension. 5. Hyperlipidemia. 6. Remote history of deep venous thrombosis and pulmonary embolus. 7. Obesity. 8. Left hip pain after fall. PLAN: Check x-ray of left hip. She is on sotalol and Cardizem per Cardiology. She is scheduled for cardioversion in 48 hours. She is on Eliquis and aspirin. Continue present treatments. cc: MD Alexis Putnam MD
[2019-12-30] MEDS: TYLENOL PO PRN (18:35)
--- NOTE | 2019-12-30 19:26 | Diag Imaging Result Doc PS360 ---
EXAM: XRAY HIP UNILATERAL LT HISTORY: left hip pain TECHNIQUE: Two views COMPARISON: 04/26/2017 FINDINGS: No fracture. No dislocation. No other bony and normality. IMPRESSION: Negative exam Electronically signed by Tacho Jarvis 12/30/2019 7:24 PM
[2019-12-30] MEDS: LIPITOR PO SCH (21:09)
[2019-12-31] MEDS: CARDIZEM PO SCH ×4 (02:07→20:40)
[2019-12-31] MEDS: NORCO-7.5 PO PRN ×3 (04:51→17:18)
--- NOTE | 2019-12-31 06:40 | EKG Report ---
Test Performed on : 12/31/2019 06:20:12 AM Test Reason : afib Blood Pressure : / mmHG Vent. Rate : 089 BPM Atrial Rate : 060 BPM P-R Int : 000 ms QRS Dur : 090 ms QT Int : 422 ms P-R-T Axes : 000 016 117 degrees QTc Int : 513 ms Atrial fibrillation. Nonspecific T wave abnormality Prolonged QT Abnormal ECG Confirmed by Martin Schwarz MD ([id number]) on 01/02/2020 7:39:45 AM
[2019-12-31] MEDS: ELIQUIS PO SCH ×2 (08:15→20:40)
[2019-12-31] MEDS: XANAX PO SCH ×2 (08:15→20:40)
[2019-12-31] MEDS: BETAPACE PO SCH ×2 (08:15→20:40)
[2019-12-31] MEDS: NEURONTIN PO SCH ×2 (08:15→20:40)
[2019-12-31] MEDS: ASPIRIN EC PO SCH (08:15)
--- NOTE | 2019-12-31 14:09 | PROGRESS NOTE ---
DATE: 12/31/2019 SUBJECTIVE: Patient is stable. She complains of some left low back, left hip, left lower extremity pain. OBJECTIVE: No rash identified over the low back or hip or leg area. There is tenderness left low lumbar into the left buttock and down the left leg. CV: Irregularly irregular. Lungs: CTA. Abdomen: Nontender. Neurologic: Cranial nerves intact. No focal deficits. Afebrile, pulse 73, respirations 15, blood pressure 127/58, O2 saturation on room air 97%. Labs: No labs today. Left hip x-ray done yesterday negative. ASSESSMENT: 1. Transient ischemic attack with no residual. 2. Atrial fibrillation with plans for cardioversion in the morning per cardiology. 3. Coronary artery disease. 4. Hypertension. 5. Hyperlipidemia. 6. Remote history of deep venous thrombosis and pulmonary embolus. 7. Obesity. 8. Left hip and low back pain, left lower extremity pain, possible radiculopathy after fall. PLAN: Check LS spine x-ray. Continue Eliquis, aspirin, sotalol, Cardizem, with plans for cardioversion tomorrow noted. We will add Robaxin to see if that helps with her pain. cc: MD Alexis Putnam MD
--- NOTE | 2019-12-31 15:08 | Diag Imaging Result Doc PS360 ---
EXAM: XRAY PELVIS W/HIP 2-3VW LT 12/31/2019 HISTORY: lt hip pain/fall TECHNIQUE: AP pelvis and left hip two views COMMENT: There are calcified leiomyomata in the pelvis particularly on the right. There is a large amount of stool in the rectosigmoid colon. The hip joint spaces are well-maintained. There is no evidence of fracture or dislocation. Compared to 12/30/2019 there has been no apparent change. IMPRESSION: No evidence of acute bony abnormality. Electronically signed by Mu Castro 12/31/2019 3:06 PM
--- NOTE | 2019-12-31 15:08 | Diag Imaging Result Doc PS360 ---
EXAM: LUMBAR SPINE 12/31/2019 HISTORY: lt leg pain/fall TECHNIQUE: Lumbosacral spine with obliques six views COMMENT: There is no evidence of fracture. There is grade 1-2 spondylolisthesis of L4 anteriorly on L5. There is curvature of the lumbar spine with convexity to the left. There is no evidence of spondylolysis. There are facet changes present at L4-5 and L5-S1 bilaterally. Compared to 04/07/2014 the spondylolisthesis at L4-5 has worsened. IMPRESSION: Worsened spondylolisthesis at L4-5. Electronically signed by Mu Castro 12/31/2019 3:05 PM
[2019-12-31] MEDS: TYLENOL PO PRN (15:12)
[2019-12-31] MEDS: ROBAXIN PO SCH (17:18)
[2019-12-31] MEDS: NICODERM PATCH TD PRN (18:46)
[2019-12-31] MEDS: LIPITOR PO SCH (20:40)
[2020-01-01] MEDS: TYLENOL PO PRN (01:21)
[2020-01-01] MEDS: CARDIZEM PO SCH ×4 (01:22→23:44)
[2020-01-01] MEDS: NORCO-7.5 PO PRN ×2 (01:27→08:34)
--- NOTE | 2020-01-01 04:14 | PROGRESS NOTE ---
DATE: 12/29/2019 Ms. Brendon vora is still having some intermittent mental confusion. She has minimal weakness on the right side. She was seen by Dr. Thibodeaux earlier who thinks due to that she had a possible TIA in the left hemisphere. She has atrial fibrillation. We are getting a Cardiology consult on her. Overall condition is unchanged. We have also started the physical therapy and we will get a rehab consult with high school social studies tutor. -4 cc: Alexis Faustin MD
[2020-01-01 06:08] LABS: INR 1.22; PROTIME 15.6 Seconds (11.0-16.0)
[2020-01-01 06:24] LABS: AGAP 12; BUN 16 mg/dL (8-22); CALCIUM 8.9 mg/dL (8.8-10.2); CHLORIDE 105 mmol/L (98-107); COSMO 284; CREATININE 0.9 mg/dL (0.5-0.9); ESTIMATED GFR > 60; GLUCOSE 96 mg/dL (70-104); MAGNESIUM 1.5 mg/dL (1.5-2.7); POTASSIUM 3.7 mmol/L (3.5-5.1); SODIUM 142 mmol/L (136-145); TCO2 25 mmol/L (25-35)
--- NOTE | 2020-01-01 07:12 | EKG Report ---
Test Performed on : 01/01/2020 06:50:13 AM Test Reason : afib Blood Pressure : / mmHG Vent. Rate : 067 BPM Atrial Rate : 046 BPM P-R Int : 000 ms QRS Dur : 092 ms QT Int : 448 ms P-R-T Axes : 000 051 031 degrees QTc Int : 473 ms Atrial fibrillation. Abnormal ECG Confirmed by Martin Schwarz MD ([id number]) on 01/02/2020 7:40:36 AM
[2020-01-01] MEDS: NEURONTIN PO SCH ×2 (08:34→23:44)
[2020-01-01] MEDS: XANAX PO SCH ×2 (08:34→23:44)
[2020-01-01] MEDS: BETAPACE PO SCH ×2 (08:35→23:45)
[2020-01-01] MEDS: ELIQUIS PO SCH ×2 (08:53→23:45)
[2020-01-01] MEDS: ASPIRIN EC PO SCH (08:53)
[2020-01-01] MEDS: ROBAXIN PO SCH ×3 (08:55→17:43)
--- NOTE | 2020-01-01 09:49 | PROGRESS NOTE ---
DATE: 01/01/2020 SUBJECTIVE: Ms. Olivas is continuing to have pain in the leg with some weakness in the right leg. She says she has something like footdrop on the right side. She is getting physical therapy and is being followed by Dr. Ondina Wilson, neurologist. Overall condition is unchanged. We are waiting for a rehab bed. -7 cc: Alexis Faustin MD
[2020-01-01] MEDS ORDERED: VENTOLIN HFA ONE (11:19)
[2020-01-01] MEDS ORDERED: XYLOCAINE 4% TOPICAL SOLUTION ONE (11:34)
[2020-01-01] MEDS ORDERED: XYLOCAINE-MPF 1% 5 ML ONE (11:42)
[2020-01-01] MEDS ORDERED: DIPRIVAN 1% ONE (11:42)
[2020-01-01] MEDS ORDERED: ANESTHESIA PB SET 88 IN 5742 ONE (11:44)
[2020-01-01] MEDS ORDERED: CLAVE TWINSITE 32 IN 11959 ONE (11:44)
[2020-01-01] MEDS ORDERED: NS 1,000 ML ONE (11:44)
[2020-01-01] MEDS ORDERED: EPHEDRINE ONE (12:35)
[2020-01-01] MEDS ORDERED: ROBINUL ONE (12:35)
--- NOTE | 2020-01-01 12:43 | CARDIAC CATH REPORT ---
DATE: 01/01/2020 PROCEDURE PERFORMED: Direct current cardioversion. INDICATION: Persistent atrial fibrillation. REQUESTING PHYSICIAN: Dr. Gonzalez and Dr. Fowler DESCRIPTION OF PROCEDURE: The patient was brought to the cardiac cath laboratory technician in the fasting state. The transesophageal echocardiogram was performed first to rule out thrombus. The patient was under the effects of intravenous propofol. The pads were positioned in anterior posterior location. Once the patient was adequately sedated, she received 2 sequential countershocks to the chest cage. The first one of 75 espinoza per second resulted in no change in rhythm. The second one, 100 espinoza per second, resulted in conversion into sinus bradycardia with a rate initially as low as 30 beats per minute, and then it crept up to 38 and 40 beats per minute. The patient gradually woke up from the effects of anesthesia. We gave her one dose of Robinul to speed up the heart rate a little bit. The patient eventually settled down. SUMMARY: This was a successful cardioversion from atrial fibrillation into sinus bradycardia. RECOMMENDATIONS: Medical therapy needs to be adjusted. The patient may be a candidate for pacemaker. Further advice will follow. cc: MD Alexis Valenzuela MD
--- NOTE | 2020-01-01 12:47 | Transesophageal Echocardiogram ---
DATE: 01/01/2020 PHYSICIAN: Dr. Carbone REQUESTING PHYSICIAN: CLINICAL INDICATIONS: The patient is with a stroke, atrial fibrillation. Coronary artery disease. PROCEDURE: Transesophageal echocardiography DESCRIPTION: The patient was brought to the cardiac labor and employment paralegal in the fasting state. She was anesthetized with Hurricaine and viscous lidocaine. She received intravenous propofol under the Anesthesia services. Esophagus was intubated without difficulty. Multiple views of the cardiac structures were obtained. SUMMARY OF MAIN FINDINGS: The left atrium is dilated. The left atrial appendage is well visualized and free of thrombus. It showed normal velocities. The septum is intact. There is no evidence of any shunt. Tricuspid valve is unremarkable. Mitral valve showed mild degree of regurgitation. The aortic valve has 3 cusps, and they open normally. Color flow mapping is unremarkable. The left ventricle shows normal function. There is a prominent epicardial fat pad. The descending thoracic aorta shows more plaque, nothing mobile or ulceration. No pericardial effusion. CONCLUSIONS: In summary, this transesophageal echocardiogram shows no evidence of thrombus. Cardioversion can be proceeded with low risk of thromboembolic phenomenon. cc: MD Leisa Valenzuela PA Amit V. Vora, MD
[2020-01-01] MEDS: NORCO-10 PO PRN (13:09)
[2020-01-01] MEDS ORDERED: FENTANYL ONE (14:14)
[2020-01-01] MEDS: DILAUDID IV PRN ×3 (15:59→21:58)
[2020-01-01] MEDS ORDERED: GLUCAGON IV ONE (17:13)
[2020-01-01] MEDS ORDERED: SODIUM CHLORIDE 0.9% INJ SCH (17:15)
[2020-01-01] MEDS: NS 1,000 ML IV SCH (17:42)
[2020-01-01] MEDS: PROTONIX IV SCH (17:42)
[2020-01-01] MEDS ORDERED: ELIQUIS PO SCH (21:00)
[2020-01-01] MEDS ORDERED: ZOFRAN IV PRN (21:34)
[2020-01-01] MEDS: LIPITOR PO SCH (23:44)
[2020-01-02] MEDS: DILAUDID IV PRN ×7 (01:14→23:24)
[2020-01-02] MEDS: CARDIZEM PO SCH ×2 (02:10→22:04)
[2020-01-02] MEDS: PROTONIX IV SCH ×2 (04:35→16:17)
[2020-01-02] MEDS: NS 1,000 ML IV SCH (05:37)
--- NOTE | 2020-01-02 07:24 | GASTROENTEROLOGY CONSULTATION ---
DATE: 01/01/2020 REASON FOR CONSULTATION: Food impaction. HISTORY OF PRESENT ILLNESS: Ms. Arti Olivas is a 69-year-old woman with past medical history of hypertension, hyperlipidemia, CAD status post stents, COPD, GERD, atrial fibrillation on Eliquis, history of DVT, tobacco abuse, and peripheral artery disease history, history of PE, and TIA's who presented to the emergency room with acute right-sided weakness. He also has a history of recurrent food impactions with esophagitis, hiatal hernia, and Schatzki's ring seen on EGD. She also has been diagnosed with peptic ulcer disease or Helicobacter pylori in the past. Her last EGD with food impaction was in September of 2019. During this hospitalization, she was ruled out for acute stroke by Neurology. Her presentation was thought to be secondary to TIA. MRI showed a tiny chronic lacunar infarct involving the left basal ganglia - stable. No evidence of acute intracranial pathology. The patient reports developing acute dysphagia this afternoon after having lunch where she had a green garcia and a piece of pork. Earlier in the day, she underwent a ELODIA that showed no evidence of thrombus and cardioversion from atrial fibrillation into sinus bradycardia. Apparently, the patient has not been able to tolerate liquids. She has been spitting up some frothy saliva. She denies any chest pain, shortness of breath, abdominal pain, melena, or rectal bleeding. No weight loss or change in bowel habits. She is not on a PPI at home, and is not followed by a GI as an outpatient. REVIEW OF SYSTEMS: As per HPI, otherwise 12 point review of systems is negative. PAST MEDICAL HISTORY: As per HPI. PAST SURGICAL HISTORY: Mohs. . Coronary stents. FAMILY HISTORY: Reviewed and noncontributory. No family history of GI malignancies. SOCIAL HISTORY: She smokes 1/2 to a pack of cigarettes daily. No alcohol or drug use. ALLERGIES: No known drug allergies. HOME MEDICATIONS: 1. [place]. 2. Clonazepam. 3. Cardizem. 4. Lexapro. 5. Eliquis. 6. Trazodone. 7. Lisinopril. PHYSICAL EXAMINATION: Vital Signs: Temperature is 97.9 degrees, heart rate 97, blood pressure 172/94, and O2 saturation 93% on room air. General: Patient is awake, alert, and oriented in no acute distress. HEENT: Sclerae anicteric. Moist mucous membranes. Extraocular motor intact. Neck: Supple. No JVD or lymphadenopathy. Cardiac: Regular rate and rhythm. No murmurs, rubs, or gallops. Lungs: Clear to auscultation bilaterally. No wheezing. Abdomen: Soft, nontender, and nondistended. Normoactive bowel sounds. No rebound or guarding. Extremities: No clubbing, cyanosis, or edema. Neurologic: Cranial nerves 2-12 grossly intact. She is moving all her extremities symmetrically. LABORATORY: CBC from 12/26 shows white count of 8.9, hemoglobin 11.7, and platelets of 326,000. Labs from today show an INR of 1.22. BMP within normal limits. IMAGING: Chest x-ray from 12/29 shows mild cardiomegaly. No pulmonary edema. Prior endoscopy in September of 2019 showed 12 mm wide Schatzki's ring at 38 cm from the incisors. A 2 cm hiatal hernia, gastritis, duodenitis, and foreign body was removed at the time of the [*]. ASSESSMENT/PLAN: Ms. Arti Olivas is a 69-year-old woman who was admitted with TIA. Symptoms are now resolved. GI was consulted for acute dysphagia after her ELODIA today and lunch. She was having some difficulty managing her oral secretions. We will give her a trial of glucagon 1 mg IV PPI IV b.i.d. and IV fluids. Keep her NPO. We will plan on diagnostic EGD the first thing in the morning. She is currently hemodynamically stable in no acute respiratory distress. Oncology physician was notified. She is not on a PPI at home. She will need to be on life long therapy after her procedure. If anything changes in her condition, we will do her procedure probably overnight. Please call with any questions or concerns. She is also on Eliquis which was noted. Further recommendations postprocedure. cc: Alexis Faustin MD
[2020-01-02] MEDS ORDERED: DIPRIVAN 1% ONE ×2 (08:12→08:16)
[2020-01-02] MEDS ORDERED: FENTANYL ONE (08:12)
--- NOTE | 2020-01-02 09:31 | ENDOSCOPY OPERATIVE NOTE ---
[facility] ENDOSCOPY OPERATIVE NOTE , EGD PROCEDURE REPORT EXAM DATE: 01/02/2020 PATIENT NAME: Arti Olivas MR#: [id number] BIRTHDATE: 1950 ATTENDING: Asa Childs MD STATUS: inpatient KICK BOXER: INDICATIONS: The patient is a 69 yr old female here for an EGD due to foreign body removal from esop hagus; food impaction PROCEDURE PERFORMED: EGD w/ fb removal MEDICATIONS: Per Anesthesia ESTIMATED BLOOD LOSS: None CONSENT: The patient understands the risks and benefits of the procedure and understands that these r isks include, but are not limited to: sedation, allergic reaction, infection, perforation and/or bleeding. Alternative means of evaluation and treatment include, among others: physical exam, x-rays, and/or surgical intervention. The patient elects to proceed with this endoscopic procedure. DESCRIPTION OF PROCEDURE: During pre-op preparation period all mechanical and medical equipment was c hecked for proper function. Hand hygiene and appropriate measures for infection prevention was taken. After the risks, benefits and alternatives of the procedure were thoroughly explained, Informed consent was verified, confirmed and timeout was successfully executed by the treatment team. The patient was anesthetized with topical anesthesia and the EC82-[id number] ([id number]) endoscope was introduced through the mouth and advanced to the second portion of the duoden um. Retroflexion was performed in the stomach and revealed no abnormalities. The gastroscope was then slowly withdraw n and removed. The patient's toleration of the procedure was fair. ESOPHAGUS: Large amount of undigested food was found throughout the length of the esophagus. Foreign body removal was initially attempted with Nelson net unsuccessfully, and then tripod forceps was used. Pieces of unchew ed vegetables and fibrous meat was removed until endoscope until I was able to traverse the GEJ with mild resistence. There was a long tapering stricture of the distal esophagus with Grade C esophagitis. No hiatal hernia or Shatzki's r ing observed. Remaining residual food in the esophagus was pushed through the GEJ into the stomach. Dilation was n ot attempted given degree of inflammation. STOMACH: Moderate gastritis (inflammation) was found in the entire examined stomach. DUODENUM: The duodenum was normal. ADVERSE EVENTS: There were no complications. IMPRESSIONS: 1. Food impaction 2. Erosive esophagitis 3. Distal esophageal stricture 4. Gastritis RECOMMENDATIONS: Continue PPI IV BID, then PO BID upon discharge Full liquid diet, advance to mechanical soft as tolerated Disphagia precautions Return to GI clinic in 2 weeks Will sign off. Please call with questions REPEAT EXAM: Return in 4 weeks for EGD with dilatation. Asa Childs MD eSigned: Asa Childs MD 01/02/2020 9:39 AM Revised: 01/02/2020 9:39 AM CC: CPT CODES: 19223 Upper gastrointestinal endoscopy including esophagus, stomach, and either the du odenum and/or jejunum as appropriate; with removal of foreign body ICD CODES: The ICD and CPT codes recommended by this software are interpretations from the data that the [facility] staff has captured with the software. The verification of the translation of this report to the ICD and CPT co mandy and modifiers is the sole responsibility of the health care institution and practicing physician where this report was generated. [employer] will not be held responsible for the validity of the ICD and CPT codes i ncluded on this report. [facility] assumes no liability for data contained or not contained herein. CPT is a registered tra demark of the [employer]. PATIENT NAME: Arti Olivas MR#: [id number]
--- NOTE | 2020-01-02 09:44 | DISCHARGE SUMMARY ---
ADMISSION DATE: 12/25/2019 DISCHARGE DATE: 01/02/2020 HISTORY OF PRESENT ILLNESS: Ms. Olivas, who is a 69-year-old, white female, was admitted with altered mental status, right-sided weakness, suspected TIA, atrial fibrillation, COPD, and hypertension. LABORATORY DATA IN THE HOSPITAL: CBC initially revealed some leukocytosis, white count 12.28, it came down to 8.99. Hemoglobin was 11.7. INR was 1.22. Electrolytes were normal. At one time, potassium went down to 3.4. BUN 22, came down to 11 with proper hydration. Troponin was 42. Cholesterol was 133, LDL was 94, HDL was 33, triglycerides were normal. Urinalysis was negative, and urine opiates was positive. Amphetamine screen was presumptive positive. COURSE IN THE HOSPITAL: She had a CT scan and MRI of the brain, which did not reveal any acute changes. Carotid Doppler studies were performed. A plaque was present at both bulbs. The plaque produced a very slight stenosis. However, it was not hemodynamically significant. She had a ELODIA performed, which did not reveal any intra-atrial blood clots. She had a cardioversion done yesterday. She is getting EGD today by Dr. Childs as she had sudden onset of dysphagia yesterday after the ELODIA and cardioversion procedure. The results will be announced later on. However, we are going to continue the Protonix. She had some physical therapy during her stay. She also had severe back pain and pain in the leg. She has spondylolisthesis in the lumbar spine. Hip x-rays were negative. She will be discharged to [facility] today. FINAL DIAGNOSES: 1. Transient ischemic attack. 2. Atrial fibrillation, resumed to regular sinus rhythm after cardioversion. 3. Spondylolisthesis in the lumbar spine at L5-S1. 4. Degenerative disk disease in the lumbar spine. 5. Hypertension. 6. Hyperlipidemia. We will continue physical therapy. I will continue to see her. cc: Alexis Faustin MD
--- NOTE | 2020-01-02 09:44 | PROGRESS NOTE ---
DATE: 01/02/2020 Ms. Olivas has gone for EGD. She has a bed for [facility]. If she is stable enough, we will transfer her there. She had a cardioversion done yesterday. Thereafter, she had dysphagia and GI consult was made. The EGD is going to be done today. cc: Alexis Faustin MD
[2020-01-02] MEDS ORDERED: DECADRON ONE (09:53)
[2020-01-02] MEDS ORDERED: VENTOLIN HFA ONE (09:53)
[2020-01-02] MEDS ORDERED: QUELICIN (DOSE) ONE (09:53)
[2020-01-02] MEDS ORDERED: ZOFRAN ONE (09:53)
--- NOTE | 2020-01-02 10:02 | Diag Imaging Result Doc PS360 ---
EXAM: CHEST-PORTABLE HISTORY: Post Food Inpaction TECHNIQUE: Single view COMPARISON: 12/29/2019 FINDINGS: The lungs are well expanded. No cardiomegaly. No pleural effusions identified. Increased interstitial markings in the right lung base. IMPRESSION: Small infiltrate in the right lung base. Electronically signed by Tacho Jarvis 01/02/2020 10:00 AM
[2020-01-02] MEDS: ROBAXIN PO SCH ×3 (12:59→16:17)
[2020-01-02] MEDS ORDERED: CARDIZEM CD PO SCH (13:00)
[2020-01-02] MEDS: XANAX PO SCH ×2 (13:03→21:57)
[2020-01-02] MEDS: NEURONTIN PO SCH ×2 (13:03→21:56)
[2020-01-02] MEDS: ASPIRIN EC PO SCH (13:04)
[2020-01-02] MEDS: BETAPACE PO SCH ×2 (13:04→21:56)
[2020-01-02] MEDS: ELIQUIS PO SCH ×2 (13:04→21:56)
[2020-01-02] MEDS: DUONEB (A & A) INH PRN (19:43)
[2020-01-02] MEDS: NORCO-10 PO PRN (21:56)
[2020-01-02] MEDS: LIPITOR PO SCH (21:57)
[2020-01-03] MEDS: DILAUDID IV PRN ×2 (03:24→07:45)
[2020-01-03] MEDS: NICODERM PATCH TD PRN (03:24)
[2020-01-03] MEDS: PROTONIX IV SCH ×2 (06:06→17:39)
[2020-01-03] MEDS: NORCO-10 PO PRN ×3 (06:07→18:17)
[2020-01-03] MEDS: BETAPACE PO SCH ×2 (08:47→20:16)
[2020-01-03] MEDS: ASPIRIN EC PO SCH (08:47)
[2020-01-03] MEDS: ELIQUIS PO SCH ×2 (08:47→20:16)
[2020-01-03] MEDS: ROBAXIN PO SCH ×3 (08:47→17:38)
[2020-01-03] MEDS: CARDIZEM PO SCH ×2 (08:47→20:16)
[2020-01-03] MEDS: XANAX PO SCH ×2 (08:47→20:16)
[2020-01-03] MEDS: NEURONTIN PO SCH ×2 (08:47→20:16)
[2020-01-03] MEDS: DUONEB (A & A) INH PRN ×2 (09:15→15:40)
--- NOTE | 2020-01-03 09:57 | PROGRESS NOTE ---
DATE: 01/03/2020 SUBJECTIVE: Ms. Olivas says she has not gotten physical therapy much. She cannot even put weight. PLAN: We will wait for the discharge to the rehab today and let the physical therapy work on her. We are going to stop the IV hydromorphone completely today and continue the rest of the therapy including physical therapy. -4 cc: Alexis Faustin MD
--- NOTE | 2020-01-03 11:04 | GASTROENTEROLOGY PROGRESS NOTE ---
DATE: 01/03/2020 SUBJECTIVE: Ms. Olivas is a 69-year-old female resting in bed. Family is at the bedside. The patient was feeling sleepy and was reluctant to speak. Family did mention that she was able to tolerate her mechanical soft diet well. The patient had 2 bowel movements yesterday, but she has denied having one today. The patient has orders to go to the rehab facility if she is able to continue doing physical therapy. OBJECTIVE: Vital Signs: Temperature 97.8 degrees, pulse is 64, respirations 14, blood pressure 129/66, oxygen saturation 100% on 3 L nasal cannula. The patient's weight is 177 pounds. BMI is 34.6 kg/m2. General: She is alert and oriented x2, and in no acute distress. HEENT: Pale conjunctivae. No icterus. PERRL. Neck: Supple. Lungs: Clear to auscultation. Cardiovascular: Regular rate and rhythm. Abdomen: Soft, nontender, nondistended. Active bowel sounds heard in all 4 quadrants. Extremities: No clubbing, no cyanosis, no edema. Pedal pulses 2+ present bilaterally. Neurologic: She is alert and oriented x2. LABORATORY DATA: The patient does not have any new hematology. Her chemistries are from 01/01/2020. Sodium 142, potassium 3.7, chloride 105, carbon dioxide 25, anion gap 12, BUN 16, creatinine 0.9, glucose 96, calcium 8.9. Magnesium 1.50. IMAGING: The patient's chest x-ray yesterday showed small infiltrates in the right lung base. EGD FINDINGS: Food impaction, erosive esophagitis, distal esophageal stricture and gastritis. IMPRESSION AND PLAN: Dysphagia Atrial fibrillation COPD Hypertension PLAN: Ms. Olivas is a 69-year-old, female with a history of atrial fibrillation, COPD, and hypertension. GI has been following her for dysphagia. An EGD was done yesterday, and the patient had a food impaction, erosive esophagitis, distal esophageal stricture, and gastritis. The patient is currently on a mechanical soft diet, and she is able to tolerate her diet well. We will continue the patient with PPIs IV twice a day. The patient currently has discharge orders to go to the rehab for three weeks. We will follow her up as an outpatient in 3 to 4 weeks, and plan an EGD with dilation as an outpatient. This plan was discussed with the patient and the family, and they acknowledge understanding of the plan of care. This plan was discussed with Dr. Childs. Please call us for any further questions or concerns. Dictated by GENESIS Garay for Asa Childs MD cc: Alexis Faustin MD MTDD
[2020-01-03] MEDS: TYLENOL PO PRN ×2 (11:05→16:24)
[2020-01-03] MEDS: LIPITOR PO SCH (20:16)
[2020-01-04] MEDS: NORCO-10 PO PRN ×3 (00:09→12:04)
[2020-01-04] MEDS: TYLENOL PO PRN (03:24)
[2020-01-04] MEDS: PROTONIX IV SCH (06:04)
[2020-01-04] MEDS: ASPIRIN EC PO SCH (08:15)
[2020-01-04] MEDS: BETAPACE PO SCH (08:15)
[2020-01-04] MEDS: CARDIZEM PO SCH (08:15)
[2020-01-04] MEDS: ROBAXIN PO SCH (08:15)
[2020-01-04] MEDS: NEURONTIN PO SCH (08:15)
[2020-01-04] MEDS: XANAX PO SCH (08:15)
[2020-01-04] MEDS: ELIQUIS PO SCH (08:15)
[2020-01-04] MEDS ORDERED: MIRALAX PO SCH (09:00)
--- NOTE | 2020-01-04 09:19 | PROGRESS NOTE ---
DATE: 01/04/2020 Ms. Olivas is better. She is asking for more pain medication. I told her that she is also getting the gabapentin, and she is in a lot of pain. I personally feel like she may qualify [facility]. She probably will qualify. Overall condition is otherwise unchanged. We were going to discharge her today. -4 cc: Alexis Faustin MD
--- NOTE | 2020-01-04 10:06 | DISCHARGE SUMMARY ---
ADMISSION DATE: 12/25/2019 DISCHARGE DATE: 01/04/2020 ADDENDUM: Ms. Olivas had EGD performed, which revealed a large amount of food particles in the esophagus. There was a stricture also. However, we are going to wait for the stricture dilatation. In the meantime, will continue her on Protonix. She will be discharged to rehab for further physical therapy. She has severe back pain and weakness in both legs. She has spondylolisthesis. [facility] cc: Alexis Faustin MD
--- NOTE | 2020-01-04 10:15 | GASTROENTEROLOGY PROGRESS NOTE ---
DATE: 01/04/2020 SUBJECTIVE: Ms. Olivas is a 69-year-old female. She was sitting at the side of the bed having her breakfast. Family is at the bedside with nursing staff giving her medications. The patient denied having any bowel movements today. She is currently on a mechanical soft diet and is able to tolerate her diet well, denied any nausea, vomiting, or abdominal pain, but complains about pain in the lower extremities. OBJECTIVE: Vital signs: Temperature 97.8, pulse is 40, respirations 18, blood pressure 174/83, oxygen saturation 97%. She is on room air. The patient's weight is 181 pounds, BMI is 36.3 kg/m2. General: She is alert and oriented x3, and in no acute distress. HEENT: Pale conjunctivae. No icterus. PERRL. Neck: Supple. Lungs: Clear to auscultation. Cardiovascular: The patient is bradycardic. Abdomen: Soft, nontender, nondistended, active bowel sounds heard in all 4 quadrants. Extremities: No clubbing, no cyanosis. Generalized edema. Pedal pulses 2+present bilaterally. Neurologic: She is alert and oriented x3. LABORATORY: The patient has no new hematology. Her chemistries are from 01/01, sodium is 142, potassium 3.7, chloride 105, carbon dioxide 25, anion gap 12, BUN 16, creatinine is 0.9, glucose 96, calcium 8.9, magnesium 1.5. IMPRESSION AND PLAN: 1. Dysphagia. 2. Atrial fibrillation. 3. Chronic obstructive pulmonary disease. 4. Hypertension. 5. Recent food impaction PLAN: Ms. Olivas is a 69-year-old female with a history of atrial fibrillation, COPD, and hypertension. Gastroenterology has been following her for dysphagia. An EGD was done and it showed that she had food impaction, erosive gastritis, distal esophagitis, esophageal stricture, and gastritis. The patient is currently on a mechanical soft diet and is able to tolerate her diet well. She has denied having any bowel movements. We started her on MiraLAX twice a day. We will continue her with Protonix 40 mg IV twice a day. The patient has discharge orders to go to the rehab facility today. Advised the patient to follow up with Dr. Childs as an outpatient in 3-4 weeks, and we will plan to do an EGD with dilation as an outpatient. This plan was discussed with Dr. Velasquez. Please call us for any further questions or concerns. Dictated by GENESIS Garay for Monroe Velasquez MD cc: MD Alexis James MD I have seen and examined the patient myself and I agree with the above plan of care. Will sign off at this time and Please call us with any further questions or concerns. MTDD
[2020-01-04] MEDS: DUONEB (A & A) INH PRN (11:34)
[2020-01-04 12:11] VITALS: BP 82/56
[2020-01-04] MEDS: NICODERM PATCH TD PRN ×2 (12:56→12:57)
== END 2020-01-04 13:48 | DRG 69 ==
LOC: SUPCPDRO → ED 21:33 → SUATTDRO 12-26 00:46 → 3N 12-26 00:46 → 2N 12-27 22:24 → 1N 12-30 20:35
PROVIDERS: ADMIT Internal Medicine; ATTEND Internal Medicine